=== PATIENT | female | born 1940 | race Caucasian/White ===

== ENCOUNTER 2017-02-14 05:18 | Emergency (ER) | payer MEDICARE, OTHER ==
[~2017-02-14] VITALS: Ht 162.6 cm; Wt 65.0 kg
[~2017-02-14 05:18] MED LIST: ACETAMIN325 MG PO; ADLT ASA LOW81 MG PO; ADVAIR HF2 IN; ALBUTEROL SUL0.083 % IN; ALBUTEROL0.083 % IN; ASA LOW DOSE81 MG OR; ASPIRIN81 MG PO; AVELOX400 MG PO; CARDIZEM CD 180 PO; CARDIZEM CD240 MG PO; CARDIZEM LA300 MG OR; CARTIA XT180 MG/24 PO; CARTIA XT240 MG/24 PO; CORDARONE/200 MG/TAB OR; COUMADIN1 MG PO; COUMADIN5 M1 IV; COUMADIN7.5 MG PO; COZAAR50 MG OR; CYTOTEC200 MCG PO; DILTIAZEM HCL240 M1 PO; DILTIAZEM120 MG PO; DILTIAZEM240 M1 OR; DONEPEZIL5 MG PO; DULCOLAX10 MG RE; ERYTHROMYCIN O3.5 GM OP; FLEET ENEMA RE; FLOVENT HFA220 MCG INH; HOME NEBULIZER; HYDROCO/APAP1 TA9 PO; HYDROCODONE/ACE1 TAB PO; IPRATROPIU0.5 MG/3 M NEB; KEFLEX500 MG PO; LANOXIN0.125 MG OR; LEVAQUIN500 MG PO; LOPRESSOR 550 MG/TAB PO; LOPRESSOR25 MG PO; LORTAB 5 PO; LOSARTAN POT50 MG PO; LOVASTATIN20 M1 PO; MEDDOSEPAK PO; MELATONIN3 MG PO; METOPROL TAR25 MG PO; METOPROL TAR50 MG PO; MEVACOR20 MG PO; MILK OF MAG30 ML/UDC PO; MUCINEX600 MG PO; NADOLOL20 MG PO; NEBULIZE1 IN; NEXIUM40 M1 PO; NYSTATIN100000 M4 PO; OMEPRAZOLE20 MG PO; PERCOCET 10/31 COMBO PO; PERCOCET 5/325M1 TAB PO; PREDNISONE10 MG PO; PREDNISONE20 MG PO; PREVACID30 M1 OR; PRILOSEC20 MG/CAP PO; PROAIR HFA IN; ROBITUSSIN AC10 ML PO; SERTRALINE100 MG PO; SERTRALINE50 MG PO; SPIRIVA IN; SYMBICORT1 AE1 IN; TRAMADOL HCL50 MG PO; TYLENOL ARTH650 M1 PO; VENTOLIN HFA IN; VITAMIN B-121000 MCG PO; WARFARIN1 MG; ZITHROMAX250 MG PO; ZITHROMAX500 MG PO; ZOFRAN ODT4 MG PO; ZOLOFT100 MG OR; ZOLOFT50 MG PO; ZPAK PO
[2017-02-14] MEDS ORDERED: VENTOLIN HF1 IN (05:34)
[2017-02-14 06:16] LABS: ALBUMIN 4.4 g/dL (3.2-5.0); ALKALINE PHOSPHATASE 106 u/l (38-126); ANION GAP 17 (6-22 (CALC)); BILIRUBIN, TOTAL 0.7 mg/dL (0.0-1.4); BUN 28 mg/dL (8-23); BUN/CREATININE RATIO 38 (12-20 (CALC)); CARBON DIOXIDE 24 mmol/l (22-30); CHLORIDE 109 mmol/l (95-108); CREATININE 0.7 mg/dL (0.5-1.0); GFR > 60 ML/MIN (>=60 (CALC)); GFR FOR AFR.AMER. > 60 ML/MIN (>=60 (CALC)); GLUCOSE 90 mg/dL (82-115); POTASSIUM 4.6 mmol/l (3.5-5.1); SGOT/AST 31 u/l (9-36); SGPT/ALT 20 u/l (11-66); SODIUM 145 mmol/l (137-146); TOTAL PROTEIN 8.5 g/dL (6.3-8.2)
[2017-02-14 06:52] LABS: HEMATOCRIT 43.6 % (37.0-47.0); HEMOGLOBIN 13.7 g/dl (12.0-16.0); IMMATURE GRANULOCYTES 0.3 % (0.0-1.0); MEAN CELL VOLUME 88.3 fL CALC (80.0-100.0); MEAN CORPUSCULAR HGB 27.7 pG CALC (26.0-32.0); MEAN CORPUSCULAR HGB CONC 31.4 g/L CALC (32.0-36.0); NEUT# 4.36 thou/uL (2.00-7.15); RED BLOOD COUNT 4.94 mill/uL (4.20-5.60); RED CELL DISTRI WIDTH 13.6 % (11.5-15.5)
[2017-02-14] MEDS ORDERED: LORTAB 10-325 M1 TAB PO (07:06)
[2017-02-14 07:12] LABS: INTERNATIONAL NORMALIZED RATIO 1.1 RATIO (0.7-1.3); PROTHROMBIN TIME 11.6 SECONDS (9.0-12.5)
[2017-02-14 07:16] VITALS: BP 186/97
== END 2017-02-14 07:22 | disposition home or self-care (01) ==
LOC: ED 05:18
PROVIDERS: Emergency Medicine
PROC: 2Y41X5Z Packing of Nasal Region using Packing Material (ICD-10-PCS; principal; 2017-02-14)
DX: R04.0 Epistaxis (principal); I10 Essential (primary) hypertension

== ENCOUNTER 2017-02-16 13:23 | Emergency (ER) | payer MEDICARE, OTHER ==
[~2017-02-16] VITALS: Ht 162.6 cm; Wt 55.0 kg
[~2017-02-16 13:23] MED LIST changes: +LORTAB 10-325 M1 TAB PO; +VENTOLIN HF1 IN
[2017-02-16 14:07] VITALS: BP 119/70
== END 2017-02-16 14:07 | disposition home or self-care (01) ==
LOC: ED 13:23
DX: Z48.00 Encounter for change or removal of nonsurgical wound dressing (principal); I10 Essential (primary) hypertension; J45.909 Unspecified asthma, uncomplicated; I25.10 Atherosclerotic heart disease of native coronary artery without angina pectoris; K21.9 Gastro-esophageal reflux disease without esophagitis; F32.9 Major depressive disorder, single episode, unspecified; I48.91 Unspecified atrial fibrillation; F03.90 Unspecified dementia, unspecified severity, without behavioral disturbance, psychotic disturbance, mood disturbance, and anxiety; J44.9 Chronic obstructive pulmonary disease, unspecified

== ENCOUNTER 2017-03-02 02:51 | Emergency (ER) | payer MEDICARE, OTHER ==
[~2017-03-02] VITALS: Ht 162.6 cm; Wt 63.6 kg
[~2017-03-02 02:51] MED LIST changes: -MEVACOR20 MG PO
[2017-03-02] MEDS ORDERED: ESOMEPRAZOLE MA40 MG PO (03:16)
[2017-03-02 03:37] LABS: ALBUMIN 3.9 g/dL (3.2-5.0); ALKALINE PHOSPHATASE 120 u/l (38-126); ANION GAP 13 (6-22 (CALC)); BILIRUBIN, TOTAL 0.6 mg/dL (0.0-1.4); BUN 13 mg/dL (8-23); BUN/CREATININE RATIO 17 (12-20 (CALC)); CALCIUM 8.9 mg/dL (8.4-10.2); CARBON DIOXIDE 30 mmol/l (22-30); CHLORIDE 106 mmol/l (95-108); CREATININE 0.8 mg/dL (0.5-1.0); GFR > 60 ML/MIN (>=60 (CALC)); GFR FOR AFR.AMER. > 60 ML/MIN (>=60 (CALC)); GLUCOSE 87 mg/dL (82-115); INTERNATIONAL NORMALIZED RATIO 1.1 RATIO (0.7-1.3); POTASSIUM 4.2 mmol/l (3.5-5.1); PROTHROMBIN TIME 11.7 SECONDS (9.0-12.5); SGOT/AST 27 u/l (9-36); SGPT/ALT 26 u/l (11-66); SODIUM 145 mmol/l (137-146); TOTAL PROTEIN 7.1 g/dL (6.3-8.2)
[2017-03-02 03:42] LABS: HEMATOCRIT 39.5 % (37.0-47.0); HEMOGLOBIN 12.4 g/dl (12.0-16.0); IMMATURE GRANULOCYTES 0.2 % (0.0-1.0); MEAN CORPUSCULAR HGB 27.3 pG CALC (26.0-32.0); MEAN CORPUSCULAR HGB CONC 31.4 g/L CALC (32.0-36.0); NEUT# 2.55 thou/uL (2.00-7.15); RED BLOOD COUNT 4.54 mill/uL (4.20-5.60); RED CELL DISTRI WIDTH 13.4 % (11.5-15.5)
[2017-03-02 06:00] VITALS: BP 168/76
== END 2017-03-02 06:00 | disposition home or self-care (01) ==
LOC: ED 02:51
PROVIDERS: Emergency Medicine
DX: R04.0 Epistaxis (principal)

== ENCOUNTER 2017-03-12 09:18 | Emergency (ER) | payer MEDICARE, OTHER ==
[~2017-03-12] VITALS: Ht 162.6 cm; Wt 90.0 kg
[~2017-03-12 09:18] MED LIST changes: +ESOMEPRAZOLE MA40 MG PO
[2017-03-12] MEDS ORDERED: VITAMIN B-121000 MCG PO (10:38)
[2017-03-12] MEDS ORDERED: NEXIUM40 M1 PO (10:41)
[2017-03-12] MEDS ORDERED: BENADRYL TOP (10:45)
[2017-03-12] MEDS ORDERED: TYLENOL325 MG PO (10:46)
[2017-03-12] MEDS ORDERED: OCEAN NASAL0.65 % (11:07)
[2017-03-12 11:08] VITALS: BP 108/58
== END 2017-03-12 11:15 ==
LOC: ED 09:18
PROC: 0W3Q7ZZ Control Bleeding in Respiratory Tract, Via Natural or Artificial Opening (ICD-10-PCS; principal; 2017-03-12)
DX: R04.0 Epistaxis (principal); I10 Essential (primary) hypertension; I25.10 Atherosclerotic heart disease of native coronary artery without angina pectoris; K21.9 Gastro-esophageal reflux disease without esophagitis; F32.9 Major depressive disorder, single episode, unspecified; I48.91 Unspecified atrial fibrillation; F03.90 Unspecified dementia, unspecified severity, without behavioral disturbance, psychotic disturbance, mood disturbance, and anxiety; J44.9 Chronic obstructive pulmonary disease, unspecified; J45.909 Unspecified asthma, uncomplicated

== ENCOUNTER 2018-03-25 20:04 | Emergency (ER) | payer MEDICARE, OTHER ==
[~2018-03-25] VITALS: Ht 162.6 cm; Wt 68.0 kg
[~2018-03-25 20:04] MED LIST changes: +BENADRYL TOP; +OCEAN NASAL0.65 %; +TYLENOL325 MG PO
[2018-03-25] MEDS ORDERED: AMLODIPINE5 MG PO (20:37)
[2018-03-25] MEDS ORDERED: FUROSEMIDE20 MG PO (20:38)
[2018-03-25] MEDS ORDERED: ESCITALOPRAM OX10 MG PO (20:38)
[2018-03-25] MEDS ORDERED: DYNACIN100 MG PO (20:39)
[2018-03-25 21:08] VITALS: BP 137/89
== END 2018-03-25 21:10 | disposition home or self-care (01) ==
LOC: ED 20:04
DX: L76.21 Postprocedural hemorrhage of skin and subcutaneous tissue following a dermatologic procedure (principal); Y83.8 Other surgical procedures as the cause of abnormal reaction of the patient, or of later complication, without mention of misadventure at the time of the procedure; C44.202 Unspecified malignant neoplasm of skin of right ear and external auricular canal; I10 Essential (primary) hypertension; K21.9 Gastro-esophageal reflux disease without esophagitis; I48.91 Unspecified atrial fibrillation; E78.5 Hyperlipidemia, unspecified; F32.9 Major depressive disorder, single episode, unspecified

== ENCOUNTER 2018-06-10 08:46 | Emergency (ER) | payer MEDICARE, OTHER ==
[~2018-06-10] VITALS: Ht 162.6 cm; Wt 80.0 kg
[~2018-06-10 08:46] MED LIST changes: +AMLODIPINE5 MG PO; +DYNACIN100 MG PO; +ESCITALOPRAM OX10 MG PO; +FUROSEMIDE20 MG PO
[2018-06-10 10:11] LABS: HEMATOCRIT 46.9 % (37.0-47.0); HEMOGLOBIN 14.6 g/dl (12.0-16.0); IMMATURE GRANULOCYTES 0.3 % (0.0-1.0); MEAN CELL VOLUME 89.2 fL CALC (80.0-100.0); MEAN CORPUSCULAR HGB 27.8 pG CALC (26.0-32.0); MEAN CORPUSCULAR HGB CONC 31.1 g/L CALC (32.0-36.0); NEUT# 5.02 thou/uL (2.00-7.15); RED BLOOD COUNT 5.26 mill/uL (4.20-5.60); RED CELL DISTRI WIDTH 14.6 % (11.5-15.5)
[2018-06-10 10:36] LABS: ALBUMIN 4.1 g/dL (3.2-5.0); ALKALINE PHOSPHATASE 115 u/l (38-126); ANION GAP 13 (6-22 (CALC)); BILIRUBIN, TOTAL 1.2 mg/dL (0.0-1.4); BUN 13 mg/dL (8-23); BUN/CREATININE RATIO 21 (12-20 (CALC)); CARBON DIOXIDE 28 mmol/l (22-30); CHLORIDE 107 mmol/l (95-108); CREATININE 0.6 mg/dL (0.5-1.0); GFR > 60 ML/MIN (>=60 (CALC)); GFR FOR AFR.AMER. > 60 ML/MIN (>=60 (CALC)); SGOT/AST 32 u/l (9-36); SGPT/ALT 19 u/l (11-66); SODIUM 143 mmol/l (137-146); TOTAL PROTEIN 7.6 g/dL (6.3-8.2)
[2018-06-10 10:45] LABS: POTASSIUM 5.1 mmol/l (3.5-5.1)
[2018-06-10] MEDS ORDERED: MELATONIN3 MG PO (10:49)
[2018-06-10 11:15] VITALS: BP 140/90
== END 2018-06-10 11:15 ==
LOC: ED 08:46
PROVIDERS: Emergency Medicine
DX: I10 Essential (primary) hypertension (principal); K21.9 Gastro-esophageal reflux disease without esophagitis; I48.91 Unspecified atrial fibrillation; E78.5 Hyperlipidemia, unspecified; F32.9 Major depressive disorder, single episode, unspecified

== ENCOUNTER 2018-12-04 09:35 | Emergency (ER) | payer MEDICARE, OTHER ==
[~2018-12-04] VITALS: Ht 162.6 cm; Wt 100.0 kg
[2018-12-04 10:44] LABS: HEMATOCRIT 43.1 % (37.0-47.0); HEMOGLOBIN 13.6 g/dl (12.0-16.0); IMMATURE GRANULOCYTES 0.4 % (0.0-5.0); MEAN CELL VOLUME 86.9 fL CALC (80.0-100.0); MEAN CORPUSCULAR HGB 27.4 pG CALC (26.0-32.0); MEAN CORPUSCULAR HGB CONC 31.6 g/L CALC (32.0-36.0); NEUT# 5.17 thou/uL (2.00-7.15); RED BLOOD COUNT 4.96 mill/uL (4.20-5.60); RED CELL DISTRI WIDTH 14.5 % (11.5-15.5)
[2018-12-04 10:50] LABS: ALBUMIN 3.9 g/dL (3.2-5.0); ALKALINE PHOSPHATASE 119 u/l (38-126); ANION GAP 15 (6-22 (CALC)); BILIRUBIN, TOTAL 0.7 mg/dL (0.0-1.4); BUN 13 mg/dL (8-23); BUN/CREATININE RATIO 20 (12-20 (CALC)); CARBON DIOXIDE 26 mmol/l (22-30); CHLORIDE 106 mmol/l (95-108); CREATININE 0.7 mg/dL (0.5-1.0); GFR > 60 ML/MIN (>=60 (CALC)); GFR FOR AFR.AMER. > 60 ML/MIN (>=60 (CALC)); POTASSIUM 4.5 mmol/l (3.5-5.1); SGOT/AST 25 u/l (9-36); SODIUM 142 mmol/l (137-146); TOTAL PROTEIN 7.1 g/dL (6.3-8.2)
[2018-12-04] MEDS ORDERED: MEDDOSEPAK PO (13:06)
[2018-12-04 13:16] VITALS: BP 127/65
== END 2018-12-04 13:16 ==
LOC: ED 09:35
PROVIDERS: Emergency Medicine
DX: J44.1 Chronic obstructive pulmonary disease with (acute) exacerbation (principal); R06.02 Shortness of breath; I10 Essential (primary) hypertension; I48.91 Unspecified atrial fibrillation; Z79.82 Long term (current) use of aspirin; R06.2 Wheezing
CPT/HCPCS: Q9967

== ENCOUNTER 2018-12-19 15:22 | Inpatient (IN) | payer MEDICARE, OTHER ==
[~2018-12-19] VITALS: Ht 162.6 cm; Wt 74.6 kg
--- NOTE | 2018-12-19 15:22 | NUR ---
PT HERE VIA EMS STRETCHER, ON EMS NEB AT THIS TIME.
--- NOTE | 2018-12-19 15:56 | NUR ---
PT RESTING QUIETLY ON STRETCHER, NEB TX BEING GIVEN. PT STATES HAS COPD, THIS HAS BEEN GOING ON FOR AWHILE BUT GOT WORSE TODAY.
[2018-12-19 16:03] LABS: HEMATOCRIT 40.9 % (37.0-47.0); HEMOGLOBIN 12.8 g/dl (12.0-16.0); IMMATURE GRANULOCYTES 0.5 % (0.0-5.0); MEAN CELL VOLUME 86.3 fL CALC (80.0-100.0); MEAN CORPUSCULAR HGB CONC 31.3 g/L CALC (32.0-36.0); NEUT# 4.62 thou/uL (2.00-7.15); RED BLOOD COUNT 4.74 mill/uL (4.20-5.60); RED CELL DISTRI WIDTH 14.7 % (11.5-15.5)
[2018-12-19 16:23] LABS: ALBUMIN 3.9 g/dL (3.2-5.0); ALKALINE PHOSPHATASE 115 u/l (38-126); ANION GAP 14 (6-22 (CALC)); BILIRUBIN, TOTAL 0.6 mg/dL (0.0-1.4); BUN 11 mg/dL (8-23); BUN/CREATININE RATIO 16 (12-20 (CALC)); CARBON DIOXIDE 27 mmol/l (22-30); CHLORIDE 104 mmol/l (95-108); CREATININE 0.7 mg/dL (0.5-1.0); GFR > 60 ML/MIN (>=60 (CALC)); GFR FOR AFR.AMER. > 60 ML/MIN (>=60 (CALC)); POTASSIUM 3.7 mmol/l (3.5-5.1); SGOT/AST 23 u/l (9-36); SODIUM 142 mmol/l (137-146); TOTAL PROTEIN 7.1 g/dL (6.3-8.2)
--- NOTE | 2018-12-19 18:04 | NUR ---
LLE CAST REMOVED WITH BIVALVE TECHNIQUE USING SAFETY CAST CUTTER.
--- NOTE | 2018-12-19 18:21 | NUR ---
PT HAS DECIDED THAT SHE WAS TO STAY NOW AFTER SHE GOT UP TO USE BEDSIDE COMMODE AND BECAME INCREASED SOB. SATS 97 ON 2 LITRE PER N/C
--- NOTE | 2018-12-19 19:03 | NUR ---
PT SLEEPING AT THIS TIME, WARM BLANKET GIVEN, LIGHTS TURNED OFF
--- NOTE | 2018-12-19 19:10 | NUR ---
UNABLE TO VERIFY MEDICATION RECONCILLIATION, PHARMACY CONSULT ORDERED
--- NOTE | 2018-12-19 19:20 | NUR ---
PT REFUSING BEDPAN, STATES SHE WILL GET UP TO BEDSIDE COMMODE EVEN THO SHE GETS VERY WINDED WHEN SHE GETS UP AND MOVES AROUND.
--- NOTE | 2018-12-19 20:48 | NUR ---
PT SLEEPING AT THIS TIME, HAS HAD APPROX 350CC OF URINE OUTPUT
[2018-12-19 21:20] VITALS: BP 190/110
--- NOTE | 2018-12-19 21:20 | NUR ---
PT TO ICU BED 4 VIA STRETCHER ACCOMPANIED BY ER STAFF. PT ABLE TO TRANSFER TO BED. PT EXTREMELY SOB UPON TRANSFER. PT PLACED ON MONITOR. PT IN AFIB WITH A RATE OF 130-140. BP 190/110. RESP ARE LABORED AT A RATE OF >40. ADMISSION ASSESSMENT COMPLETED AT THIS TIME. ORIENTED TO ROOM AND UNIT AND CALL LIGHT SYSTEM. CALL LIGHT IN REACH. WILL CONTINUE TO [facility].
--- NOTE | 2018-12-19 21:25 | NUR ---
PT TAKEN TO ICU FOR OVERFLOW, REPORT GIVEN TO JEANNIE, PT CONTINUES TO WHEEZE, BUT REMAINS ALERT.
--- NOTE | 2018-12-19 21:30 | NUR ---
DR LENNON UPDATED OF PT STATUS. NEW ORDERS RECEIVED TO CONVERT PT TO ICU STATUS WITH NEW MEDICXATION ORDERS.
[2018-12-19] MEDS ORDERED: DILTIAZEM90 M1 PO (21:44)
[2018-12-19 22:00] VITALS: BP 208/89
[2018-12-19 22:15] VITALS: BP 211/124
--- NOTE | 2018-12-19 22:20 | NUR ---
ASSISTED PT TO BSC. PT BECAME ETREMRELY SOB O2 SAT INTO 70S. RT INTO ROOM TO VERIFY. IV CARDIZEM GIVEN IVP PER JAN AND MD ORDERS. BP 211/124. PT VERY TACHYPNEIC AND PALE. INCREASED O2 TO 4L NC.
--- NOTE | 2018-12-19 22:22 | NUR ---
RT AT BEDSIDE TO COMPLETE ABG
[2018-12-19 22:30] VITALS: BP 207/88
--- NOTE | 2018-12-19 22:30 | NUR ---
DR LENNON NOTIFIED OF ABG RESULTS. PT PLACED ON BIPAP AND GROVES PLACED AT THIS TIME. CALL LIGHT IN REACH. WILL CONTINUE TO M[facility]ITOR
[2018-12-19 22:45] VITALS: BP 165/96
[2018-12-19 22:58] LABS: URINE BILIRUBIN - DIPSTICK NEGATIVE (NEGATIVE); URINE BLOOD DIPSTICK MODERATE (NEGATIVE); URINE COLOR YELLOW; URINE GLUCOSE - DIPSTICK NEGATIVE (NEGATIVE); URINE KETONE NEGATIVE (NEGATIVE); URINE LEUK ESTERASE NEGATIVE (NEGATIVE); URINE NITRITE - DIPSTICK NEGATIVE (Negative); URINE PH 5.5 (4.5-8.0); URINE PROTEIN - DIPSTICK >=300 mg/dL (NEG-TRACE); URINE SPECIFIC GRAVITY >=1.030
[2018-12-19 23:00] VITALS: BP 148/100
[2018-12-19 23:06] LABS: URINE AMORPH SEDIMENT MANY hpf (NONE-FEW); URINE BACTERIA FEW hpf; URINE SQUAMOUS EPITHELIAL CELL FEW EPI/hpf (0-FEW); URINE WBC 0-2 WBC/hpf (0-5)
--- NOTE | 2018-12-19 23:12 | NUR ---
PT NOW RESTING IN BED WITH EYES CLOSED. HR REMAINS AFIB RATE 80S-90S. BP NOW 148/100. RESP ARE EVEN AND UNLABORED ON BIPAP. RESP DOWN TO 28. CALL LIGHT IN REACH. WILL CONTINUE TO MONITOR
[2018-12-20] VITALS (23 sets, daily range): BP systolic 113–193; BP diastolic 65–104
--- NOTE | 2018-12-20 02:00 | NUR ---
PT RESTING IN BED WITH EYES CLOSED. RESP ARE EVEN AND UNLABORED ON BIPAP. NO DISTRESS NOTE. CALL LIGHT IN REACH. WILL CONTINUE TO MONITOR
--- NOTE | 2018-12-20 04:27 | NUR ---
PT RESTING IN BED WITH EYES CLOSED. RESP ARE EVEN AND UNLABORED. NO DISTRESS NOTED. CALL LIGHT IN REACH. WILL CONTINUE TO MONITOR.
--- NOTE | 2018-12-20 06:00 | NUR ---
FINGERPRINT CLASSIFIER AT BEDSIDE TO DRAW AM LABS
[2018-12-20 06:16] LABS: HEMATOCRIT 43.2 % (37.0-47.0); HEMOGLOBIN 13.6 g/dl (12.0-16.0); IMMATURE GRANULOCYTES 0.4 % (0.0-5.0); MEAN CELL VOLUME 86.4 fL CALC (80.0-100.0); MEAN CORPUSCULAR HGB 27.2 pG CALC (26.0-32.0); MEAN CORPUSCULAR HGB CONC 31.5 g/L CALC (32.0-36.0); NEUT# 5.15 thou/uL (2.00-7.15); RED CELL DISTRI WIDTH 14.9 % (11.5-15.5)
[2018-12-20 06:32] LABS: ALKALINE PHOSPHATASE 118 u/l (38-126); ANION GAP 16 (6-22 (CALC)); BILIRUBIN, TOTAL 0.8 mg/dL (0.0-1.4); BUN 16 mg/dL (8-23); BUN/CREATININE RATIO 26 (12-20 (CALC)); CARBON DIOXIDE 29 mmol/l (22-30); CHLORIDE 103 mmol/l (95-108); CREATININE 0.6 mg/dL (0.5-1.0); GFR > 60 ML/MIN (>=60 (CALC)); GFR FOR AFR.AMER. > 60 ML/MIN (>=60 (CALC)); POTASSIUM 4.3 mmol/l (3.5-5.1); SGOT/AST 25 u/l (9-36); SODIUM 144 mmol/l (137-146); TOTAL PROTEIN 6.9 g/dL (6.3-8.2)
--- NOTE | 2018-12-20 07:25 | NUR ---
awake in bed; offers no complaints; no apparent distress noted at this time; assessment completed; pt alert and oriented; denies pain; no n/v noted; pt denies sob at current; resp even and unlabored; rate 25; lungs clear upper anter, crackles right base; skin color pale; bipap intact; converted to 3L nc at this time; insulation cutter and former cough noted; hr irreg; strong pulses; no edema noted; afib on monitor; abd soft with bs present; no bm noted per auto service writer; lilly to gravity with cloudy dk yellow urine; cath strap intact; #22 flushed and patent to rac; no redness or edema noted at site; plan of care/ am meds explained; call light within reach; will continue to monitor
--- NOTE | 2018-12-20 07:30 | NUR ---
BIPAP PLACED STANDBY. PT PLACED ON 3L NC.
--- NOTE | 2018-12-20 08:08 | NUR ---
resting with eyes closed; ate 25% breakfast; pt noted with sob with minimal activity/exertion/speaking; o2 per nc; o2 sat 100%; afib 110s on monitor; lilly to gravity; call light within reach; will continue to monitor closely
--- NOTE | 2018-12-20 09:54 | NUR ---
assist to bsc; sob on exertion noted; afib 110-120 with activity; o2 per nc; mod formed br mo noted; pericare per pt; declined am care at this time; linens changed; will continue to monitor
--- NOTE | 2018-12-20 10:03 | NUR ---
awake in bed; no apparent distress noted; pt offers no complaints; resp slightly labored; o2 per nc; lilly to gravity; afib on monitor; call light within reach; will continue to monitor
--- NOTE | 2018-12-20 10:40 | NUR ---
Dr Figueroa present at bedside to assess pt and discuss plan of care
--- NOTE | 2018-12-20 11:58 | NUR ---
awake in bed; offers no complaints; son present at bedside; iv patent; o2 per nc; lilly to gravity; afib on monitor; lungs noted with wheezing throughout; call light within reach; will continue to monitor
--- NOTE | 2018-12-20 14:09 | NUR ---
pt resting on left side; no apparent distress noted; resp even and unlabored; o2 per nc; afib 90s on monitor; lilly to gravity; call light within reach; will continue to monitor
--- NOTE | 2018-12-20 15:58 | NUR ---
pt awake in bed; no apparent distress noted; resp slightly labored; o2 per nc; lilly to gravity; iv intact; no redness or edema noted at site; afib on monitor; pt deny needs; call light within reach; will continue to monitor
--- NOTE | 2018-12-20 17:34 | NUR ---
Dr Figueroa called per scenario writer; informed pt hr 130-140 and elevated bp; scenario writer explained next dose of cardizem due at 2200; no orders received;
--- NOTE | 2018-12-20 17:42 | NUR ---
pt with complaints of increased sob; labored resp/ tachypneic noted; afib 130s on monitor; o2 per nc; lilly to gravity; iv intact; o2 sat 94%; dinner tray held; bipap to be reapplied
--- NOTE | 2018-12-20 17:45 | NUR ---
rt at bedside; bipap reapplied; see rt flowsheet for settings
--- NOTE | 2018-12-20 18:13 | NUR ---
awake in bed; resp labored; bipap intact with 32% FiO2; lilly to gravity; iv intact; afib on monitor; pt offers no complaints; call light within reach
--- NOTE | 2018-12-20 19:00 | NUR ---
PT SITTING UP IN BED VISITING WITH FAMILY. PT IS ALERT AND ORIENTED X3. SHIFT ASSESSMENT COMPLETED AT THIS TIME. PT IS HYPERTENSIVE, AFIB 120-140S, APPEARS ANXIOUS. PT INSTRUCTED TO LEAVE BIPAP ON. DR LENNON NOTIFIED OF PT STATUS. NEW ORDERS RECEIVED. CALL LIGHT IN REACH. WILL CONTINUE TO MONITOR.
--- NOTE | 2018-12-20 20:33 | NUR ---
MEDICATED PT WITH EVENING MEDS AND XANAX FOR ANXIETY PER JAN. CALL LIGHT IN REACH WILL CONTINUE TO MOMITOR.
--- NOTE | 2018-12-20 22:00 | NUR ---
PT RESTING IN BED WITH EYES CLOSED. REMAINS ON BIPAP AT THIS TIME. CALL LIGHT IN REACH. WILL CONTINUE TO MONITOR.
--- NOTE | 2018-12-20 23:49 | NUR ---
PT RESTING IN BED WITH EYES CLOSED. RESP ARE EVEN AND UNLABORED. PT REMAINS ON BIPAP AT THIS TIME. CALL LIGHT IN REACH. WILL CONTINUE TO MONITOR.
[2018-12-21] VITALS (19 sets, daily range): BP systolic 106–194; BP diastolic 58–113
--- NOTE | 2018-12-21 01:15 | NUR ---
bp 194/113. notified dr manzanares. new orders received.
--- NOTE | 2018-12-21 02:19 | NUR ---
pt resting in bed on side. pt had removed bp cuff and heart monitor leads. reattached. when questioned pt why she began to yell at this database report writer. instructed pt to calm down. bp reassessed at 151/86. call light in reach. will continue to monitor
--- NOTE | 2018-12-21 03:48 | NUR ---
PT RESTING IN BED WITH EYES CLOSED. RESP ARE EVEN AND UNLABORED. NO DISTRESS NOTED. CALL LIGHT IN REACH. WILL CONTINUE TO MONITOR.
[2018-12-21 04:20] LABS: HEMATOCRIT 41.4 % (37.0-47.0); IMMATURE GRANULOCYTES 0.7 % (0.0-5.0); MEAN CELL VOLUME 86.8 fL CALC (80.0-100.0); MEAN CORPUSCULAR HGB 27.3 pG CALC (26.0-32.0); MEAN CORPUSCULAR HGB CONC 31.4 g/L CALC (32.0-36.0); NEUT# 3.72 thou/uL (2.00-7.15); RED BLOOD COUNT 4.77 mill/uL (4.20-5.60); RED CELL DISTRI WIDTH 14.9 % (11.5-15.5)
[2018-12-21 04:35] LABS: ALBUMIN 3.7 g/dL (3.2-5.0); ALKALINE PHOSPHATASE 107 u/l (38-126); AMYLASE 33 u/l (30-110); ANION GAP 14 (6-22 (CALC)); BILIRUBIN, TOTAL 0.5 mg/dL (0.0-1.4); BUN 23 mg/dL (8-23); BUN/CREATININE RATIO 36 (12-20 (CALC)); CARBON DIOXIDE 29 mmol/l (22-30); CHLORIDE 104 mmol/l (95-108); CREATININE 0.6 mg/dL (0.5-1.0); GFR > 60 ML/MIN (>=60 (CALC)); GFR FOR AFR.AMER. > 60 ML/MIN (>=60 (CALC)); LIPASE 61 u/l (23-300); SGOT/AST 26 u/l (9-36); SODIUM 142 mmol/l (137-146); TOTAL PROTEIN 6.4 g/dL (6.3-8.2)
--- NOTE | 2018-12-21 05:43 | NUR ---
MEDICATED PT WITH 0600 MEDS. PT REQUESTING TO HAVE BIPAP REMOVED. EXPLAINED TO PT THAT AT BREAKFAST TIME THE BIPAP WOULD BE REMOVED. ENCOURAGED PT TO TRY AND GET SOME MORE REST. PT VERBALIZED UNDERSTANDING. CALL LIGHT IN REACH. WILL CONTINUE TO MONITOR.
--- NOTE | 2018-12-21 08:09 | NUR ---
PT LAYING IN BED, HUDLED UNDER COVERS. PT GIVEN A WARM BLANKET. BREATHING EVEN/UNLABORED, LUNG SOUNDS WHEEZING. PULSES STRONG x4. CAP REFILL <3SEC. ABD SOFT/NONTENDER, ACTIVE BS. DARK YELLOW URINE DRAINING TO CATH GROVES BAG. PT A&0. RT REMOVED BIPAP, PT ON 2L NC @96%
--- NOTE | 2018-12-21 08:21 | NUR ---
DIETARY @BEDSIDE FOR PTS FOOD PREFERENCES.
--- NOTE | 2018-12-21 10:19 | NUR ---
DR DERAS @BEDSIDE, ASSESSING PT.
--- NOTE | 2018-12-21 10:26 | NUR ---
PT LAYING IN BED, WATCHING TV. OBSERVED PT FANNING HERSELF, TURNED AIR DOWN. PT REFUSED FAN ON. TYM TEMP 98.2
--- NOTE | 2018-12-21 10:38 | NUR ---
CALLED TO ROOM WITH C/O CANT BREATH. PT GIVEN 0.5MG XANAX ORDERED FOR ANXIETY. PT ENCOURAGED TO TAKE DEEP BREATHS & GUIDED TO SLOWER RESPIRATIONS. PT AGREED TO FAN AT THIS TIME. WILL CONTINUE TO MONITOR. CALLBELL W/IN REACH.
--- NOTE | 2018-12-21 11:40 | NUR ---
PT RESTING IN BED, NO S/S OF DISTRESS. BREATHING IS EVEN/UNLABORED. CALLBELL W/IN REACH. WILL CONTINUE TO MONITOR.
--- NOTE | 2018-12-21 11:46 | NUR ---
DR HODGES @BEDSIDE, ASSESSING PT.
--- NOTE | 2018-12-21 12:00 | NUR ---
GRACE, CASE MANAGEMENT, AT BEDSIDE WITH PT.
--- NOTE | 2018-12-21 13:15 | NUR ---
PT WOKEN UP TO GIVE ABX. STATES NO WORRIES, ILL JUST GO BACK TO SLEEP. BREATHING IS EVEN/UNLABORED. CALLBELL W/IN REACH.
--- NOTE | 2018-12-21 13:42 | NUR ---
U/S @BEDSIDE FOR ECHO.
--- NOTE | 2018-12-21 14:26 | NUR ---
PT EDUCATED ON 1400 MEDICATION. SHE IS NOW RESTING IN BED. NO S/S OF DISTRESS.
--- NOTE | 2018-12-21 15:42 | NUR ---
PT SITTING UP IN BED, WATCHING TV. PT STATES SHE IS STARTING TO GET STUFF UP WHEN SHE COUGHS.
--- NOTE | 2018-12-21 15:45 | NUR ---
VISITOR @BEDSIDE. PT APPEARS HAPPY & TALKATIVE.
--- NOTE | 2018-12-21 17:25 | NUR ---
PT SITTING UP ON SIDE OF BED EATING. PTS HAIR BRUSHED AND BRAIDED. CALLBELL WITHIN REACH.
--- NOTE | 2018-12-21 17:41 | NUR ---
DIETARY AT BEDSIDE TO DISCUSS PTS FOOD PREFERENCES.
--- NOTE | 2018-12-21 18:10 | NUR ---
PT MIN ASSISTED UP TO BSC FOR URINATION THEN BACK TO BED. PARTIAL LINEN CHANGE. CALLBELL W/IN REACH. FAN ON. PT ALTERNATES BETWEEN HOT & COLD. AFEBRILE ALL DAY.
--- NOTE | 2018-12-21 18:50 | NUR ---
REPORT FROM Janet RUCKER RN. ASSUMED PT. CARE.
--- NOTE | 2018-12-21 19:45 | NUR ---
PT. FOUND EASILY AROUSABLE TO LIGHT VERBAL STIMULI. AWAKE, ALERT, ORIENTED X 3. SKIN WARM AND DRY. AFEBRILE. RESPS EVEN AND UNLABORED. COARSE LUNG SOUNDS NOTED ON EXP PHASE THROUGHOUT. WHEEZY COUGH NOTED. PT. ENCOURAGED TO PROVIDE SPUTUM SPECIMEN AND SPECIMEN CUP PROVIDED. PT. DENIES PAIN OR NEED AT THIS TIME. UPDATED ON PLAN OF CARE. CALL LIGHT REMAINS WITHIN REACH. WILL CONTINUE TO MONITOR.
--- NOTE | 2018-12-21 21:37 | NUR ---
PT. MEDICATED PER PHYSICIAN ORDERS. REMAINS EASILY AROUSABLE TO LIGHT VERBAL STIMULI. PT. WITH SNORING RESPIRATIONS. RESPS REMAIN EVEN AND UNLABORED. REMAINS IN NO DISTRESS. WILL CONTINUE TO MONITOR.
--- NOTE | 2018-12-21 23:30 | NUR ---
PT. RESTING ON LT. SIDE IN NO DISTRESS. RESPS REMAIN EVEN, SHALLOW, UNLABORED. PROLONGED EXP PHASE. BP/HR STABLE. PT. REMAINS A-FIB HR IN THE 90-110'S. CALL LIGHT REMAINS WITHIN REACH. WILL CONTINUE TO ASSESS.
[2018-12-22] VITALS (11 sets, daily range): BP systolic 111–174; BP diastolic 60–99
--- NOTE | 2018-12-22 01:20 | NUR ---
PT. CONTINUES TO REST ON LT. SIDE IN NO DISTRESS. HR SLIGHTLY ELEVATED AT THIS TIME IN THE 100-120'S. BP SLIGHTLY ELEVATED, WILL CONTINUE TO ASSESS. SPO2 STABLE ON 2L NC AT 96%. CALL LIGHT REMAINS WITHIN REACH.
--- NOTE | 2018-12-22 03:30 | NUR ---
LAB AT BEDSIDE AT THIS TIME. PT. REMAINS EASILY AROUSABLE TO LIGHT VERBAL STIMULI. VSS. REMAINS A-FIB WITH RATE IN THE 90-110'S. CALL LIGHT REMAINS WITHIN REACH. WILL CONTINUE TO ASSESS.
[2018-12-22 03:55] LABS: HEMATOCRIT 42.9 % (37.0-47.0); HEMOGLOBIN 13.1 g/dl (12.0-16.0); IMMATURE GRANULOCYTES 0.8 % (0.0-5.0); MEAN CELL VOLUME 88.3 fL CALC (80.0-100.0); MEAN CORPUSCULAR HGB CONC 30.5 g/L CALC (32.0-36.0); NEUT# 8.35 thou/uL (2.00-7.15); RED BLOOD COUNT 4.86 mill/uL (4.20-5.60); RED CELL DISTRI WIDTH 14.9 % (11.5-15.5)
[2018-12-22 04:25] LABS: ALBUMIN 3.7 g/dL (3.2-5.0); ALKALINE PHOSPHATASE 101 u/l (38-126); ANION GAP 15 (6-22 (CALC)); BILIRUBIN, TOTAL 0.3 mg/dL (0.0-1.4); BUN 32 mg/dL (8-23); BUN/CREATININE RATIO 44 (12-20 (CALC)); CARBON DIOXIDE 29 mmol/l (22-30); CHLORIDE 104 mmol/l (95-108); CREATININE 0.7 mg/dL (0.5-1.0); GFR > 60 ML/MIN (>=60 (CALC)); GFR FOR AFR.AMER. > 60 ML/MIN (>=60 (CALC)); MAGNESIUM 2.3 mg/dL (1.6-2.3); POTASSIUM 4.3 mmol/l (3.5-5.1); SGOT/AST 26 u/l (9-36); SODIUM 144 mmol/l (137-146); TOTAL PROTEIN 6.4 g/dL (6.3-8.2)
--- NOTE | 2018-12-22 05:34 | NUR ---
PT. MEDICATED PER PHYSICIAN ORDERS. RADIOLOGY AT BEDSIDE AT THIS TIME FOR PORTABLE CHEST X-RAY. PT. TOLERATED WELL. WILL CONTINUE TO ASSESS. CALL LIGHT REMAINS WITHIN REACH.
--- NOTE | 2018-12-22 05:41 | NUR ---
RT AT BEDSIDE TO PERFORM CHEST PHYSIOTHERAPY.
--- NOTE | 2018-12-22 05:45 | NUR ---
CPT DONE TO POSTERIOR LUNG UPTON. TOLERATED WELL. LOOSE, NON-PRODUCTIVE COUGH.
--- NOTE | 2018-12-22 06:50 | NUR ---
REPORT RECVD FROM SAMMIE AVILA AT START OF SHIFT.
--- NOTE | 2018-12-22 07:33 | NUR ---
PT LAYING IN BED W/HOB FLAT, APPEARS ASLEEP. WILL HOLD BREAKFAST UNTIL PT AWAKENS.
--- NOTE | 2018-12-22 09:36 | NUR ---
PT SITTING UP ON SIDE OF BED, EATING BREAKFAST. BREAKFAST WAS HEATED UP. PT MEDICATED WITH MORNING MEDS + ANXIETY + MILK OF MAG. PT STATES SHE SLEPT WELL AND REPOSITIONED HERSELF TO THE SIDE OF THE BED AND USED BED CONTROLS.
--- NOTE | 2018-12-22 11:27 | NUR ---
PT SLEEPING IN SEMI-FOWLERS POSITION. NO S/S OF DISTRESS AT THIS TIME. CALLBELL W/IN REACH. WILL CONTINUE TO MONITOR.
--- NOTE | 2018-12-22 12:14 | NUR ---
DR LENNON & RAINER OBRIEN @BEDSIDE ASSESSING PT, DISCUSSING TEST RESULTS & POC. MAGDA GROVES. TRANSFER PT TO MSU. & CAMILLE DISCUSSING LATEST CHEST XR.
--- NOTE | 2018-12-22 12:25 | NUR ---
SHIMON GROVES DC'D WITHOUT INCIDENT. TIP INTACT, 9ML FLUIDS DRAWN FROM BUBBLE. PERIAREA CLEANED. PT INSTRUCTED TO USE CALLBELL WHEN SHE NEEDS TO URINATE. PT REFUSED LUNCH AT THIS TIME. TRAY ON BEDSIDE TABLE. WILL HEAT UP WHEN SHE IS READY. PT REFUSED BATH EARLY THIS AM AND NOW.
--- NOTE | 2018-12-22 13:57 | NUR ---
CALLED TO ROOM FOR RIGHT ARM PAIN. NOTICED SWELLING TO IV SITE. IV AZYTHROMICIN STOPPED IMMEDIATELY. IV DC'D, TIP INTACT, PRESSURE DRESSING & ICE APPLIED TO ENTIRE AREA.
--- NOTE | 2018-12-22 14:08 | NUR ---
RT @BEDSIDE FOR BREATHING TREATMENT.
--- NOTE | 2018-12-22 14:24 | NUR ---
NEW IV ESTABLISHED IN . AZITHROMYCIN RESTARTED. PT FEELING PAIN RELEIF IN RIGHT ARM. TRANSFER PENDING ROOM ASSIGNMENT ON MSU.
--- NOTE | 2018-12-22 16:41 | NUR ---
PT SITTING UP ON SIDE OF BED, EATING LUNCH TRAY THAT WAS HEATED UP. PT AWARE DINNER WILL BE SERVED SOON. PT REQUESTED CRANBERRY JUICE INSTEAD OF TEA.
--- NOTE | 2018-12-22 18:28 | NUR ---
ASSISTED PT BACK TO BED FROM CHAIR. PT AWARE/AGREES TO TRANSFER TO MSU ROOM 282 AT SHIFT CHANGE.
--- NOTE | 2018-12-22 18:52 | NUR ---
REPORT FROM Janet RUCKER RN. ASSUMED PT. CARE
--- NOTE | 2018-12-22 19:05 | NUR ---
REPORT TO Evelin FRASER RN.
--- NOTE | 2018-12-22 19:30 | NUR ---
PT. TAKEN OVER TO MED/SURG AT THIS TIME.
--- NOTE | 2018-12-22 19:32 | NUR ---
PT ARRIVED TO FLOOR ACCOMPANIED BY ICU NURSE. PT APPEARS TO BE STABLE AT THIS TIME. AIDE IN W/PT AT THIS TIME. PT BEING ORIENTED TO ROOM, CALL SYSTEM, BED AND LIGHTS
[2018-12-23] VITALS (7 sets, daily range): BP systolic 141–174; BP diastolic 62–97
--- NOTE | 2018-12-23 02:10 | NUR ---
PT IS SLEEPING. NO S/O DISTRESS NOTED. CALL LIGHT AT BEDSIDE.
--- NOTE | 2018-12-23 04:04 | NUR ---
PT UP TO RESTROOM 200CC OF DARK YELLOW CLEAR URINE. PT BLADDER SCANNED FOR RESIDUAL DUE TO NOT URINATING THROUGHOUT THE NIGHT MORE THAN THIS 200CC. RESIDUAL READING 0. ROOM WARMED FOR PT/COMPLAINT OF COLD. DENIES ANY OTHER NEEDS, NO S/O DISTRESS. CALL LIGHT AT BEDSIDE.
--- NOTE | 2018-12-23 05:31 | NUR ---
PT MEDICATED ORDERS PROVIDE. RESPIRATORY IN W/PT AT THIS TIME. PT DENIES ANY OTHER NEEDS, CALL LIGHT AT SIDE.
--- NOTE | 2018-12-23 07:15 | NUR ---
PT REPORT RECIEVED FROM SAMMIE LOPEZ. PT SLEEPING. NO S/S OF DISTRESS. CALL LIGHT IN REACH. WILL CONTINUE TO MONITOR
[2018-12-23 07:16] LABS: HEMATOCRIT 41.2 % (37.0-47.0); HEMOGLOBIN 12.6 g/dl (12.0-16.0); MEAN CELL VOLUME 88.4 fL CALC (80.0-100.0); MEAN CORPUSCULAR HGB CONC 30.6 g/L CALC (32.0-36.0); RED BLOOD COUNT 4.66 mill/uL (4.20-5.60); RED CELL DISTRI WIDTH 14.9 % (11.5-15.5)
[2018-12-23 07:51] LABS: ANION GAP 13 (6-22 (CALC)); BUN 39 mg/dL (8-23); BUN/CREATININE RATIO 60 (12-20 (CALC)); CARBON DIOXIDE 30 mmol/l (22-30); CHLORIDE 103 mmol/l (95-108); CREATININE 0.7 mg/dL (0.5-1.0); GFR > 60 ML/MIN (>=60 (CALC)); GFR FOR AFR.AMER. > 60 ML/MIN (>=60 (CALC)); POTASSIUM 4.8 mmol/l (3.5-5.1); SODIUM 141 mmol/l (137-146)
--- NOTE | 2018-12-23 08:10 | NUR ---
PT A/O X3. SPEECH IS SLIGHTLY GARBLED. PT HAS SOME FACIAL WEAKNESS TO LT SIDE. PT STATES SHE HAS HAD THIS FOR AWHILE. PRODUCTIVE COUGH NOTED. RESP EVEN AND UNLABORED. LUNG SOUNDS COARSE. O2 @2L ON PT. BOWEL SOUNDS ACTIVE X4. STRONG RADIAL AND PEDAL PULSES. #22 LH SL. FLUSHED AND PATENT. SITE HEALTHY. PT HAS A TRACE OF EDEMA TO BLE. ENCOURAGED ELEVATION WHEN OOB. SKIN INTACT. PT DENIES ANY PAIN OR NEEDS. POC DISCUSSED. SAFETY PRECAUTIONS IN PLACE. CALL LIGHT IN REACH. WILL CONTINUE TO MONITOR.
--- NOTE | 2018-12-23 12:10 | NUR ---
PT SITTING IN BED EATING LUNCH. TELE IN PLACE. NO C/O PAIN OR NEEDS. CALL LIGHT IN REACH. WILL CONTINUE TO MONITOR.
[2018-12-23] MEDS ORDERED: PREDNISONE10 MG PO (12:11)
[2018-12-23] MEDS ORDERED: IPRATROPIU0.5 MG/3 M NEB (12:11)
[2018-12-23] MEDS ORDERED: DOXYCYCL HYC100 MG PO (12:11)
--- NOTE | 2018-12-23 15:52 | NUR ---
PT RESTING IN BED. NO C/O PAIN OR NEEDS. CALL LIGHT IN REACH. WILL CONTINUE TO MONITOR.
--- NOTE | 2018-12-23 20:37 | NUR ---
NEW IV 22 RFA PLACED, PT TOLERATED WELL.
--- NOTE | 2018-12-23 21:15 | NUR ---
PT MEDICATED ORDERS PROVIDE NO S/O DISTRESS, COUGHING THICK WHITE SPUTUM PRODUCTIVE. LIGHTS AND TV ARE OFF, PT ATTEMPTING TO GO TO SLEEP FOR THE NIGHT.
--- NOTE | 2018-12-24 00:09 | NUR ---
PT MEDICATED FOR ELEVATED BP. LUNG SOUNDS ARE WHEEZING, PT DENIES SOB AND IS ATTEMPTING TO RETURN TO SLEEP AT THIS TIME.
[2018-12-24 04:00] VITALS: BP 169/84
--- NOTE | 2018-12-24 04:51 | NUR ---
PT MEDICATED FOR ELEVATED BP. PT WAS SLEEPING SOUNDLY I ENTERED THE ROOM, AWOKE TO MY VOICE. NO S/O DISTRESS. WILL CONTINUE TO MONITOR. PT RETURNING BACK TO SLEEP, TV AND LIGHTS OFF.
[2018-12-24 09:10] VITALS: BP 134/68
--- NOTE | 2018-12-24 09:10 | NUR ---
PT OOB RESTING IN RECLINER;VS OBTAINED AND ASSESSMENT COMPLETED;PT DENIES ANY CURRENT PAIN JUST STATES "I FEEL CRAPPY TODAY", PAIN SCALE AND REPORTING EDUCATED;RESPIRATIONS SHALLOW ON 02 @ 2L VIA NC, PRODUCTIVE COUGH NOTED;ABDOMEN DISTENDED/SOFT ON PALPATION AND ACTIVE IN ALL 4 QUADRANTS;WEAK PEDAL PULSES;SKIN INTACT;#22G TO RIGHT FOREARM FLUSHED AND PATENT,SITE APPEARS HEALTHY;TELE MONITORING IN PLACE;PT DENIES ANY ADDITIONAL NEEDS AND IS ENCOURAGED TO CALL FOR ASSISTANCE IF NEEDED;FALL PRECAUTIONS IN PLACE WITH CALL LIGHT IN REACH;WILL CONTINUE TO MONITOR
[2018-12-24 11:39] VITALS: BP 144/78
--- NOTE | 2018-12-24 11:40 | NUR ---
PT OOB RESTING IN RECLINER WITH FAMILY AT BEDSIDE;RESPIRATIONS EVEN AND UNLABORED,SHALLOW ON 02 @ 2L VIA NC;PT DENIES ANY CURRENT PAIN OR NEEDS;TELE MONITORING IN PLACE;PT UPDATED ON POC INCLUDING D/C PLAN AND VERBALIZES UNDERSTANDING;ENCOURAGED PT TO CALL FOR ASSISTANCE IF NEEDED;FALL PRECAUTIONS IN PLACE WITH CALL LIGHT IN REACH;WILL CONTINUE TO MONITOR
--- NOTE | 2018-12-24 14:18 | NUR ---
ALL DISCHARGE INSTRUCTIONS PROVIDED AT THIS TIME;PT GIVEN PRESCRIPTIONS AND EDUCATED ON USE;ALL QUESTIONS ANSWERED AND PT RE-ASSURED;PT DENIES ANY ADDITIONAL NEEDS AT THIS TIME;IV SITE REMOVED WITH CATHETER INTACT;WHEELCHAIR TO BE PROVIDED FOR DISCHARGE;PT TO BE TRANSFERRED TO THE [facility] BY BROTHER.
--- NOTE | 2018-12-24 14:32 | NUR ---
Discharge instructions given. Patient verbalizes understanding of same. Discharged in stable condition via Wheelchair to [facility] with family. All belongings sent with pt. Pt transferred back to the [facility] in stable condition accompanied by son via wheelchair.
== END 2018-12-24 14:33 | DRG 190 ==
LOC: ED 15:22 → ED-I 15:56 → ED 15:56 → ED-I 18:40 → ED 19:12 → ICU 19:13 → MS2 12-22 19:30
PROVIDERS: Emergency Medicine; Internal Medicine Nephrology; ADMIT Internal Medicine; ATTEND Internal Medicine
PROC: 5A09357 Assistance with Respiratory Ventilation, Less than 24 Consecutive Hours, Continuous Positive Airway Pressure (ICD-10-PCS; principal; 2018-12-19)
PROC: 0T9B70Z Drainage of Bladder with Drainage Device, Via Natural or Artificial Opening (ICD-10-PCS; 2018-12-19)
DX: J44.1 Chronic obstructive pulmonary disease with (acute) exacerbation (principal); J96.22 Acute and chronic respiratory failure with hypercapnia; J96.21 Acute and chronic respiratory failure with hypoxia; I50.22 Chronic systolic (congestive) heart failure; I11.0 Hypertensive heart disease with heart failure; I48.2 Chronic atrial fibrillation; G62.9 Polyneuropathy, unspecified; M19.90 Unspecified osteoarthritis, unspecified site; E78.5 Hyperlipidemia, unspecified; F41.8 Other specified anxiety disorders; K21.9 Gastro-esophageal reflux disease without esophagitis; R80.9 Proteinuria, unspecified; E53.8 Deficiency of other specified B group vitamins; G47.33 Obstructive sleep apnea (adult) (pediatric); I27.20 Pulmonary hypertension, unspecified; I08.1 Rheumatic disorders of both mitral and tricuspid valves; I71.4 Abdominal aortic aneurysm, without rupture; Z79.82 Long term (current) use of aspirin; Z91.81 History of falling; Z96.643 Presence of artificial hip joint, bilateral; Z96.652 Presence of left artificial knee joint
CPT/HCPCS: J1650

== ENCOUNTER 2019-03-13 16:36 | Emergency (ER) | payer MEDICARE, OTHER ==
[~2019-03-13] VITALS: Ht 162.6 cm; Wt 86.0 kg
[~2019-03-13 16:36] MED LIST changes: +DILTIAZEM90 M1 PO; +DOXYCYCL HYC100 MG PO
[2019-03-13 17:05] LABS: HEMATOCRIT 40.4 % (37.0-47.0); HEMOGLOBIN 12.5 g/dl (12.0-16.0); IMMATURE GRANULOCYTES 0.4 % (0.0-5.0); MEAN CELL VOLUME 88.4 fL CALC (80.0-100.0); MEAN CORPUSCULAR HGB 27.4 pG CALC (26.0-32.0); MEAN CORPUSCULAR HGB CONC 30.9 g/L CALC (32.0-36.0); NEUT# 4.63 thou/uL (2.00-7.15); RED BLOOD COUNT 4.57 mill/uL (4.20-5.60); RED CELL DISTRI WIDTH 15.7 % (11.5-15.5)
[2019-03-13 17:36] LABS: ALBUMIN 3.8 g/dL (3.2-5.0); ALKALINE PHOSPHATASE 81 u/l (38-126); ANION GAP 12 (6-22 (CALC)); BILIRUBIN, TOTAL 0.6 mg/dL (0.0-1.4); BUN 15 mg/dL (8-23); BUN/CREATININE RATIO 19 (12-20 (CALC)); CARBON DIOXIDE 30 mmol/l (22-30); CHLORIDE 105 mmol/l (95-108); CREATININE 0.8 mg/dL (0.5-1.0); GFR > 60 ML/MIN (>=60 (CALC)); GFR FOR AFR.AMER. > 60 ML/MIN (>=60 (CALC)); SGOT/AST 32 u/l (9-36); SODIUM 142 mmol/l (137-146); TOTAL PROTEIN 6.4 g/dL (6.3-8.2)
[2019-03-13 17:48] LABS: MYOGLOBIN 27 ng/mL (0 - 62)
[2019-03-13 18:03] LABS: URINE BILIRUBIN - DIPSTICK NEGATIVE (NEGATIVE); URINE BLOOD DIPSTICK NEGATIVE (NEGATIVE); URINE COLOR YELLOW; URINE GLUCOSE - DIPSTICK NEGATIVE (NEGATIVE); URINE KETONE NEGATIVE (NEGATIVE); URINE LEUK ESTERASE NEGATIVE (NEGATIVE); URINE NITRITE - DIPSTICK NEGATIVE (Negative); URINE PH 5.5 (4.5-8.0); URINE PROTEIN - DIPSTICK NEGATIVE (NEG-TRACE); URINE SPECIFIC GRAVITY <=1.005; URINE UROBILINOGEN - DIPSTICK 0.2 E.U./dL (0.2)
[2019-03-13] MEDS ORDERED: DILTIAZEM180 M1 PO (18:22)
[2019-03-13 18:41] VITALS: BP 160/85
== END 2019-03-13 19:15 ==
LOC: ED 16:36
PROVIDERS: Family Medicine
DX: R42 Dizziness and giddiness (principal); I10 Essential (primary) hypertension; J44.9 Chronic obstructive pulmonary disease, unspecified; I48.91 Unspecified atrial fibrillation; R94.31 Abnormal electrocardiogram [ECG] [EKG]

== ENCOUNTER 2019-04-07 18:01 | Inpatient (IN) | payer MEDICARE, OTHER ==
[~2019-04-07] VITALS: Ht 162.6 cm; Wt 73.5 kg
[~2019-04-07 18:01] MED LIST changes: +DILTIAZEM180 M1 PO
[2019-04-07] MEDS ORDERED: LASIX 20 MG TAB20 MG PO (18:31)
[2019-04-07] MEDS ORDERED: ANORO ELLIPTA 61 AER IN (18:33)
[2019-04-07] MEDS ORDERED: KEFLEX500 MG PO (18:37)
[2019-04-07 18:46] LABS: HEMATOCRIT 39.1 % (37.0-47.0); HEMOGLOBIN 12.3 g/dl (12.0-16.0); IMMATURE GRANULOCYTES 0.8 % (0.0-5.0); MEAN CELL VOLUME 85.6 fL CALC (80.0-100.0); MEAN CORPUSCULAR HGB 26.9 pG CALC (26.0-32.0); MEAN CORPUSCULAR HGB CONC 31.5 g/L CALC (32.0-36.0); NEUT# 10.67 thou/uL (2.00-7.15); RED BLOOD COUNT 4.57 mill/uL (4.20-5.60); RED CELL DISTRI WIDTH 14.6 % (11.5-15.5)
[2019-04-07 19:03] LABS: ALBUMIN 3.7 g/dL (3.2-5.0); ANION GAP 12 (6-22 (CALC)); BILIRUBIN, TOTAL 0.7 mg/dL (0.0-1.4); BUN 13 mg/dL (8-23); BUN/CREATININE RATIO 23 (12-20 (CALC)); CARBON DIOXIDE 30 mmol/l (22-30); CHLORIDE 103 mmol/l (95-108); CREATININE 0.6 mg/dL (0.5-1.0); GFR > 60 ML/MIN (>=60 (CALC)); GFR FOR AFR.AMER. > 60 ML/MIN (>=60 (CALC)); LIPASE 116 u/l (23-300); POTASSIUM 3.6 mmol/l (3.5-5.1); SGOT/AST 40 u/l (9-36); SODIUM 141 mmol/l (137-146); TOTAL PROTEIN 7.1 g/dL (6.3-8.2)
[2019-04-07 19:05] LABS: ALKALINE PHOSPHATASE 126 u/l (38-126)
[2019-04-07 20:45] VITALS: BP 168/92
[2019-04-07 21:25] LABS: URINE BILIRUBIN - DIPSTICK SMALL (NEGATIVE); URINE BLOOD DIPSTICK NEGATIVE (NEGATIVE); URINE COLOR YELLOW; URINE GLUCOSE - DIPSTICK NEGATIVE (NEGATIVE); URINE KETONE TRACE mg/dL (NEGATIVE); URINE LEUK ESTERASE NEGATIVE (NEGATIVE); URINE NITRITE - DIPSTICK NEGATIVE (Negative); URINE PH 5.5 (4.5-8.0); URINE PROTEIN - DIPSTICK 100 mg/dL (NEG-TRACE); URINE SPECIFIC GRAVITY 1.025
[2019-04-07 22:21] LABS: URINE SQUAMOUS EPITHELIAL CELL FEW EPI/hpf (0-FEW)
[2019-04-08 04:30] VITALS: BP 150/80
[2019-04-08 09:30] VITALS: BP 151/81
[2019-04-08 16:04] VITALS: BP 154/79
[2019-04-08 20:10] VITALS: BP 165/67
[2019-04-09] VITALS (7 sets, daily range): BP systolic 133–174; BP diastolic 45–86
[2019-04-09 06:08] LABS: HEMATOCRIT 36.7 % (37.0-47.0); HEMOGLOBIN 11.4 g/dl (12.0-16.0); IMMATURE GRANULOCYTES 1.9 % (0.0-5.0); MEAN CELL VOLUME 86.2 fL CALC (80.0-100.0); MEAN CORPUSCULAR HGB 26.8 pG CALC (26.0-32.0); MEAN CORPUSCULAR HGB CONC 31.1 g/L CALC (32.0-36.0); NEUT# 13.6 thou/uL (2.00-7.15); RED BLOOD COUNT 4.26 mill/uL (4.20-5.60); RED CELL DISTRI WIDTH 14.6 % (11.5-15.5)
[2019-04-09 06:30] LABS: ALBUMIN 3.4 g/dL (3.2-5.0); ALKALINE PHOSPHATASE 114 u/l (38-126); AMYLASE 47 u/l (30-110); ANION GAP 12 (6-22 (CALC)); BUN 23 mg/dL (8-23); BUN/CREATININE RATIO 45 (12-20 (CALC)); CARBON DIOXIDE 29 mmol/l (22-30); CHLORIDE 105 mmol/l (95-108); CREATININE 0.5 mg/dL (0.5-1.0); GFR > 60 ML/MIN (>=60 (CALC)); GFR FOR AFR.AMER. > 60 ML/MIN (>=60 (CALC)); LIPASE 37 u/l (23-300); SGOT/AST 29 u/l (9-36); SODIUM 142 mmol/l (137-146); TOTAL PROTEIN 6.2 g/dL (6.3-8.2)
[2019-04-09 06:31] LABS: BILIRUBIN, TOTAL 0.4 mg/dL (0.0-1.4)
[2019-04-10] VITALS (7 sets, daily range): BP systolic 132–170; BP diastolic 8–94
[2019-04-10 05:58] LABS: HEMATOCRIT 36.2 % (37.0-47.0); HEMOGLOBIN 11.2 g/dl (12.0-16.0); MEAN CELL VOLUME 87.2 fL CALC (80.0-100.0); MEAN CORPUSCULAR HGB CONC 30.9 g/L CALC (32.0-36.0); NEUT# 12.18 thou/uL (2.00-7.15); RED BLOOD COUNT 4.15 mill/uL (4.20-5.60); RED CELL DISTRI WIDTH 15.2 % (11.5-15.5)
[2019-04-10 06:21] LABS: ALBUMIN 3.3 g/dL (3.2-5.0); ALKALINE PHOSPHATASE 107 u/l (38-126); ANION GAP 11 (6-22 (CALC)); BILIRUBIN, TOTAL 0.4 mg/dL (0.0-1.4); BUN 29 mg/dL (8-23); BUN/CREATININE RATIO 43 (12-20 (CALC)); CARBON DIOXIDE 29 mmol/l (22-30); CHLORIDE 105 mmol/l (95-108); CREATININE 0.7 mg/dL (0.5-1.0); GFR > 60 ML/MIN (>=60 (CALC)); GFR FOR AFR.AMER. > 60 ML/MIN (>=60 (CALC)); MAGNESIUM 2.1 mg/dL (1.6-2.3); SGOT/AST 40 u/l (9-36); SODIUM 141 mmol/l (137-146)
[2019-04-11] VITALS (7 sets, daily range): BP systolic 138–169; BP diastolic 65–100
[2019-04-12] VITALS (7 sets, daily range): BP systolic 141–161; BP diastolic 66–87
[2019-04-12 05:04] LABS: HEMOGLOBIN 12.2 g/dl (12.0-16.0); MEAN CELL VOLUME 86.9 fL CALC (80.0-100.0); MEAN CORPUSCULAR HGB 27.2 pG CALC (26.0-32.0); MEAN CORPUSCULAR HGB CONC 31.3 g/L CALC (32.0-36.0); NEUT# 10.78 thou/uL (2.00-7.15); RED BLOOD COUNT 4.49 mill/uL (4.20-5.60); RED CELL DISTRI WIDTH 14.6 % (11.5-15.5)
[2019-04-12 05:28] LABS: ALBUMIN 3.5 g/dL (3.2-5.0); ALKALINE PHOSPHATASE 92 u/l (38-126); ANION GAP 13 (6-22 (CALC)); BUN 27 mg/dL (8-23); BUN/CREATININE RATIO 40 (12-20 (CALC)); CARBON DIOXIDE 29 mmol/l (22-30); CHLORIDE 102 mmol/l (95-108); CREATININE 0.7 mg/dL (0.5-1.0); GFR > 60 ML/MIN (>=60 (CALC)); GFR FOR AFR.AMER. > 60 ML/MIN (>=60 (CALC)); MAGNESIUM 2.1 mg/dL (1.6-2.3); POTASSIUM 3.9 mmol/l (3.5-5.1); SGOT/AST 29 u/l (9-36); SODIUM 140 mmol/l (137-146); TOTAL PROTEIN 6.1 g/dL (6.3-8.2)
[2019-04-12 05:39] LABS: BILIRUBIN, TOTAL 0.6 mg/dL (0.0-1.4)
[2019-04-13 04:02] VITALS: BP 146/83
[2019-04-13 11:00] VITALS: BP 171/94
[2019-04-13 15:00] VITALS: BP 127/69
[2019-04-13 19:13] VITALS: BP 160/90
[2019-04-13 23:58] VITALS: BP 155/91
[2019-04-14 04:46] VITALS: BP 162/78
[2019-04-14 08:00] VITALS: BP 131/78
[2019-04-14] MEDS ORDERED: LEVAQUIN500 MG PO (12:07)
[2019-04-14 13:13] VITALS: BP 166/84
== END 2019-04-14 14:45 | DRG 190 ==
LOC: ED 18:01 → ED-I 19:25 → ED 20:04 → MS2 20:05
PROVIDERS: Family Medicine; Internal Medicine Nephrology; ADMIT Internal Medicine; ATTEND Internal Medicine
DX: J44.1 Chronic obstructive pulmonary disease with (acute) exacerbation (principal); J18.9 Pneumonia, unspecified organism; J44.0 Chronic obstructive pulmonary disease with (acute) lower respiratory infection; I10 Essential (primary) hypertension; I48.0 Paroxysmal atrial fibrillation; E78.5 Hyperlipidemia, unspecified; G62.9 Polyneuropathy, unspecified; M19.90 Unspecified osteoarthritis, unspecified site; F41.8 Other specified anxiety disorders; K21.9 Gastro-esophageal reflux disease without esophagitis; Z91.81 History of falling; Z86.73 Personal history of transient ischemic attack (TIA), and cerebral infarction without residual deficits
CPT/HCPCS: J0692; J3370

== ENCOUNTER 2019-05-02 09:48 | Emergency (ER) | payer MEDICARE, OTHER ==
[~2019-05-02] VITALS: Ht 162.6 cm; Wt 70.0 kg
[~2019-05-02 09:48] MED LIST changes: +ANORO ELLIPTA 61 AER IN; +LASIX 20 MG TAB20 MG PO
[2019-05-02] MEDS ORDERED: METHIMAZOLE PO (10:39)
[2019-05-02 10:45] LABS: HEMATOCRIT 45.5 % (37.0-47.0); HEMOGLOBIN 13.5 g/dl (12.0-16.0); IMMATURE GRANULOCYTES 0.6 % (0.0-5.0); MEAN CORPUSCULAR HGB CONC 29.7 g/L CALC (32.0-36.0); NEUT# 2.06 thou/uL (2.00-7.15); RED CELL DISTRI WIDTH 16.2 % (11.5-15.5)
[2019-05-02 10:57] LABS: ANION GAP 13 (6-22 (CALC)); BUN 14 mg/dL (8-23); BUN/CREATININE RATIO 22 (12-20 (CALC)); CARBON DIOXIDE 27 mmol/l (22-30); CHLORIDE 107 mmol/l (95-108); CREATININE 0.6 mg/dL (0.5-1.0); GFR > 60 ML/MIN (>=60 (CALC)); GFR FOR AFR.AMER. > 60 ML/MIN (>=60 (CALC)); POTASSIUM 4.4 mmol/l (3.5-5.1); SODIUM 142 mmol/l (137-146)
[2019-05-02 11:44] VITALS: BP 160/96
[2019-05-03] MEDS ORDERED: LASIX 20 MG TAB20 MG PO (22:38)
[2019-05-03] MEDS ORDERED: PREDNISONE50 MG PO (23:40)
[2019-05-03] MEDS ORDERED: DOXYCYCL HYC100 MG PO (23:40)
== END 2019-05-02 11:46 | disposition home or self-care (01) ==
LOC: ED 09:48
PROVIDERS: Family Medicine
DX: R07.9 Chest pain, unspecified (principal); R94.31 Abnormal electrocardiogram [ECG] [EKG]; Z91.19 Patient's noncompliance with other medical treatment and regimen

== ENCOUNTER 2019-05-03 22:03 | Emergency (ER) | payer MEDICARE, OTHER ==
[~2019-05-03] VITALS: Ht 162.6 cm; Wt 68.1 kg
[~2019-05-03 22:03] MED LIST changes: +METHIMAZOLE PO
[2019-05-03] MEDS ORDERED: LASIX 20 MG TAB20 MG PO (22:38)
[2019-05-03 22:45] LABS: HEMATOCRIT 42.5 % (37.0-47.0); HEMOGLOBIN 13.1 g/dl (12.0-16.0); IMMATURE GRANULOCYTES 0.3 % (0.0-5.0); MEAN CELL VOLUME 87.3 fL CALC (80.0-100.0); MEAN CORPUSCULAR HGB 26.9 pG CALC (26.0-32.0); MEAN CORPUSCULAR HGB CONC 30.8 g/L CALC (32.0-36.0); NEUT# 2.36 thou/uL (2.00-7.15); RED BLOOD COUNT 4.87 mill/uL (4.20-5.60)
[2019-05-03 23:09] LABS: ALBUMIN 4.1 g/dL (3.2-5.0); ALKALINE PHOSPHATASE 110 u/l (38-126); ANION GAP 12 (6-22 (CALC)); BILIRUBIN, TOTAL 0.7 mg/dL (0.0-1.4); BUN 16 mg/dL (8-23); BUN/CREATININE RATIO 24 (12-20 (CALC)); CARBON DIOXIDE 31 mmol/l (22-30); CHLORIDE 103 mmol/l (95-108); CREATININE 0.7 mg/dL (0.5-1.0); GFR > 60 ML/MIN (>=60 (CALC)); GFR FOR AFR.AMER. > 60 ML/MIN (>=60 (CALC)); POTASSIUM 4.5 mmol/l (3.5-5.1); SGOT/AST 26 u/l (9-36); SODIUM 141 mmol/l (137-146)
[2019-05-03] MEDS ORDERED: PREDNISONE50 MG PO (23:40)
[2019-05-03] MEDS ORDERED: DOXYCYCL HYC100 MG PO (23:40)
[2019-05-04] VITALS: BP 133/70
--- NOTE | 2019-05-05 08:20 | NUR ---
PRELIMINARY BLOOD CULTURE RESULTS CALLED TO IN ED. THE PATIENT WAS BEING SEEN FOR COPD, BLOOD CULTURE IS GROWING GRAM (+) COCCI IN 1/2 SETS SUSPECTED CONTAMINATE. WILL FOLLOW FOR FINAL C+S NO NEW ORDERS AT THIS TIME.
== END 2019-05-04 00:02 ==
LOC: ED 22:03
PROVIDERS: Family Medicine
DX: J44.1 Chronic obstructive pulmonary disease with (acute) exacerbation (principal); I10 Essential (primary) hypertension; I48.91 Unspecified atrial fibrillation; Z86.73 Personal history of transient ischemic attack (TIA), and cerebral infarction without residual deficits

== ENCOUNTER 2019-10-15 13:20 | Emergency (ER) | payer MEDICARE, OTHER ==
[~2019-10-15] VITALS: Ht 162.6 cm; Wt 69.0 kg
[~2019-10-15 13:20] MED LIST changes: +PREDNISONE50 MG PO
[2019-10-15 13:48] LABS: HEMATOCRIT 43.3 % (37.0-47.0); HEMOGLOBIN 13.5 g/dl (12.0-16.0); IMMATURE GRANULOCYTES 0.5 % (0.0-5.0); MEAN CELL VOLUME 87.1 fL CALC (80.0-100.0); MEAN CORPUSCULAR HGB 27.2 pG CALC (26.0-32.0); MEAN CORPUSCULAR HGB CONC 31.2 g/L CALC (32.0-36.0); NEUT# 9.2 thou/uL (2.00-7.15); RED BLOOD COUNT 4.97 mill/uL (4.20-5.60)
[2019-10-15 14:26] LABS: ANION GAP 13 (6-22 (CALC)); BUN 20 mg/dL (8-23); BUN/CREATININE RATIO 23 (12-20 (CALC)); CARBON DIOXIDE 30 mmol/l (22-30); CHLORIDE 101 mmol/l (95-108); CREATININE 0.9 mg/dL (0.5-1.0); GFR 60 ML/MIN (>=60 (CALC)); GFR FOR AFR.AMER. > 60 ML/MIN (>=60 (CALC)); POTASSIUM 4.1 mmol/l (3.5-5.1); SODIUM 139 mmol/l (137-146)
[2019-10-15 15:42] VITALS: BP 156/69
== END 2019-10-15 15:39 | disposition left against medical advice (07) ==
LOC: ED 13:20
PROVIDERS: Family Medicine
DX: R07.9 Chest pain, unspecified (principal); J44.1 Chronic obstructive pulmonary disease with (acute) exacerbation; Z53.29 Procedure and treatment not carried out because of patient's decision for other reasons
CPT/HCPCS: J2060

== ENCOUNTER 2019-10-16 07:43 | Inpatient (IN) | payer MEDICARE, OTHER ==
[2019-10-16] VITALS (52 sets, daily range): BP systolic 86–202; BP diastolic 46–95
[~2019-10-16] VITALS: Ht 162.6 cm; Wt 68.1 kg
[2019-10-16 08:19] LABS: HEMATOCRIT 43.7 % (37.0-47.0); HEMOGLOBIN 13.5 g/dl (12.0-16.0); MEAN CELL VOLUME 87.6 fL CALC (80.0-100.0); MEAN CORPUSCULAR HGB 27.1 pG CALC (26.0-32.0); MEAN CORPUSCULAR HGB CONC 30.9 g/L CALC (32.0-36.0); NEUT# 11.66 thou/uL (2.00-7.15); RED BLOOD COUNT 4.99 mill/uL (4.20-5.60); RED CELL DISTRI WIDTH 14.9 % (11.5-15.5)
[2019-10-16 08:41] LABS: ALBUMIN 4.3 g/dL (3.2-5.0); ALKALINE PHOSPHATASE 104 u/l (38-126); ANION GAP 17 (6-22 (CALC)); BILIRUBIN, TOTAL 0.7 mg/dL (0.0-1.4); BUN 26 mg/dL (8-23); BUN/CREATININE RATIO 40 (12-20 (CALC)); CARBON DIOXIDE 25 mmol/l (22-30); CHLORIDE 103 mmol/l (95-108); CREATININE 0.6 mg/dL (0.5-1.0); GFR > 60 ML/MIN (>=60 (CALC)); GFR FOR AFR.AMER. > 60 ML/MIN (>=60 (CALC)); POTASSIUM 4.4 mmol/l (3.5-5.1); SGOT/AST 23 u/l (9-36); SODIUM 140 mmol/l (137-146); TOTAL PROTEIN 7.2 g/dL (6.3-8.2)
[2019-10-16 16:15] LABS: URINE BILIRUBIN - DIPSTICK NEGATIVE (NEGATIVE); URINE BLOOD DIPSTICK NEGATIVE (NEGATIVE); URINE COLOR YELLOW; URINE GLUCOSE - DIPSTICK NEGATIVE (NEGATIVE); URINE KETONE NEGATIVE (NEGATIVE); URINE LEUK ESTERASE NEGATIVE (NEGATIVE); URINE NITRITE - DIPSTICK NEGATIVE (Negative); URINE PROTEIN - DIPSTICK 100 mg/dL (NEG-TRACE); URINE SPECIFIC GRAVITY >=1.030; URINE UROBILINOGEN - DIPSTICK 0.2 E.U./dL (0.2)
[2019-10-16 16:26] LABS: URINE AMORPH SEDIMENT MODERATE hpf (NONE-FEW); URINE SQUAMOUS EPITHELIAL CELL FEW EPI/hpf (0-FEW); URINE URIC ACID CRYSTALS MANY lpf
[2019-10-17] VITALS (37 sets, daily range): BP systolic 113–168; BP diastolic 38–86
[2019-10-17 08:01] LABS: IMMATURE GRANULOCYTES 0.9 % (0.0-5.0); MEAN CELL VOLUME 88.8 fL CALC (80.0-100.0); MEAN CORPUSCULAR HGB CONC 30.5 g/L CALC (32.0-36.0); NEUT# 10.48 thou/uL (2.00-7.15); RED BLOOD COUNT 3.92 mill/uL (4.20-5.60); RED CELL DISTRI WIDTH 15.4 % (11.5-15.5)
[2019-10-17 08:05] LABS: HEMOGLOBIN 10.6 g/dl (12.0-16.0)
[2019-10-17 08:07] LABS: HEMATOCRIT 34.8 % (37.0-47.0)
[2019-10-17 08:25] LABS: ALKALINE PHOSPHATASE 69 u/l (38-126); ANION GAP 12 (6-22 (CALC)); BILIRUBIN, TOTAL 0.5 mg/dL (0.0-1.4); BUN 27 mg/dL (8-23); BUN/CREATININE RATIO 32 (12-20 (CALC)); CARBON DIOXIDE 24 mmol/l (22-30); CHLORIDE 109 mmol/l (95-108); CREATININE 0.8 mg/dL (0.5-1.0); GFR > 60 ML/MIN (>=60 (CALC)); GFR FOR AFR.AMER. > 60 ML/MIN (>=60 (CALC)); POTASSIUM 4.1 mmol/l (3.5-5.1); SGOT/AST 19 u/l (9-36); SODIUM 141 mmol/l (137-146)
[2019-10-17 08:30] LABS: ALBUMIN 3.1 g/dL (3.2-5.0); TOTAL PROTEIN 5.4 g/dL (6.3-8.2)
[2019-10-18] VITALS (31 sets, daily range): BP systolic 127–189; BP diastolic 60–107
[2019-10-18 05:37] LABS: MEAN CELL VOLUME 87.5 fL CALC (80.0-100.0); MEAN CORPUSCULAR HGB 27.5 pG CALC (26.0-32.0); MEAN CORPUSCULAR HGB CONC 31.4 g/L CALC (32.0-36.0); RED CELL DISTRI WIDTH 15.9 % (11.5-15.5)
[2019-10-18 06:02] LABS: ANION GAP 13 (6-22 (CALC)); BUN 27 mg/dL (8-23); BUN/CREATININE RATIO 35 (12-20 (CALC)); CHLORIDE 114 mmol/l (95-108); CREATININE 0.8 mg/dL (0.5-1.0); GFR > 60 ML/MIN (>=60 (CALC)); GFR FOR AFR.AMER. > 60 ML/MIN (>=60 (CALC)); POTASSIUM 3.5 mmol/l (3.5-5.1); SODIUM 142 mmol/l (137-146)
[2019-10-18 06:03] LABS: CARBON DIOXIDE 19 mmol/l (22-30)
[2019-10-19] VITALS (29 sets, daily range): BP systolic 124–181; BP diastolic 64–95
[2019-10-20] VITALS (19 sets, daily range): BP systolic 96–194; BP diastolic 72–98
[2019-10-20 05:49] LABS: ANION GAP 8 (6-22 (CALC)); BUN 38 mg/dL (8-23); BUN/CREATININE RATIO 50 (12-20 (CALC)); CARBON DIOXIDE 37 mmol/l (22-30); CHLORIDE 103 mmol/l (95-108); CREATININE 0.8 mg/dL (0.5-1.0); GFR > 60 ML/MIN (>=60 (CALC)); GFR FOR AFR.AMER. > 60 ML/MIN (>=60 (CALC)); POTASSIUM 3.7 mmol/l (3.5-5.1); SODIUM 144 mmol/l (137-146)
[2019-10-21] VITALS (11 sets, daily range): BP systolic 108–180; BP diastolic 57–122
[2019-10-21 05:43] LABS: HEMOGLOBIN 12.6 g/dl (12.0-16.0); IMMATURE GRANULOCYTES 1.1 % (0.0-5.0); MEAN CELL VOLUME 88.4 fL CALC (80.0-100.0); MEAN CORPUSCULAR HGB CONC 30.6 g/L CALC (32.0-36.0); NEUT# 8.63 thou/uL (2.00-7.15); RED BLOOD COUNT 4.66 mill/uL (4.20-5.60); RED CELL DISTRI WIDTH 14.8 % (11.5-15.5)
[2019-10-21 05:44] LABS: HEMATOCRIT 41.2 % (37.0-47.0)
[2019-10-21 06:00] LABS: ALBUMIN 3.4 g/dL (3.2-5.0); ALKALINE PHOSPHATASE 60 u/l (38-126); BUN 43 mg/dL (8-23); BUN/CREATININE RATIO 61 (12-20 (CALC)); CHLORIDE 98 mmol/l (95-108); CREATININE 0.7 mg/dL (0.5-1.0); GFR > 60 ML/MIN (>=60 (CALC)); GFR FOR AFR.AMER. > 60 ML/MIN (>=60 (CALC)); POTASSIUM 3.8 mmol/l (3.5-5.1); SGOT/AST 24 u/l (9-36); SODIUM 142 mmol/l (137-146)
[2019-10-21 06:06] LABS: ANION GAP 9 (6-22 (CALC)); CARBON DIOXIDE 39 mmol/l (22-30)
[2019-10-21 06:09] LABS: BILIRUBIN, TOTAL 0.9 mg/dL (0.0-1.4)
[2019-10-22] VITALS (14 sets, daily range): BP systolic 109–170; BP diastolic 61–109
[2019-10-22 05:45] LABS: HEMOGLOBIN 13.1 g/dl (12.0-16.0); IMMATURE GRANULOCYTES 1.3 % (0.0-5.0); MEAN CELL VOLUME 88.5 fL CALC (80.0-100.0); MEAN CORPUSCULAR HGB CONC 30.5 g/L CALC (32.0-36.0); NEUT# 10.09 thou/uL (2.00-7.15); RED BLOOD COUNT 4.86 mill/uL (4.20-5.60); RED CELL DISTRI WIDTH 14.6 % (11.5-15.5)
[2019-10-22 05:47] LABS: BUN 41 mg/dL (8-23); BUN/CREATININE RATIO 57 (12-20 (CALC)); CHLORIDE 96 mmol/l (95-108); CREATININE 0.7 mg/dL (0.5-1.0); GFR > 60 ML/MIN (>=60 (CALC)); GFR FOR AFR.AMER. > 60 ML/MIN (>=60 (CALC)); POTASSIUM 3.7 mmol/l (3.5-5.1); SODIUM 142 mmol/l (137-146)
[2019-10-22 05:53] LABS: ANION GAP 10 (6-22 (CALC)); CARBON DIOXIDE 40 mmol/l (22-30)
[2019-10-22] MEDS ORDERED: AUGMENTIN250 MG PO (16:54)
[2019-10-22] MEDS ORDERED: PREDNISONE10 MG PO (16:59)
[2019-10-23 00:15] VITALS: BP 165/96
[2019-10-23 01:15] VITALS: BP 169/69
[2019-10-23 02:00] VITALS: BP 155/79
[2019-10-23 04:08] VITALS: BP 152/87
[2019-10-23 05:20] LABS: HEMATOCRIT 41.3 % (37.0-47.0); HEMOGLOBIN 12.7 g/dl (12.0-16.0); MEAN CELL VOLUME 88.1 fL CALC (80.0-100.0); MEAN CORPUSCULAR HGB 27.1 pG CALC (26.0-32.0); MEAN CORPUSCULAR HGB CONC 30.8 g/L CALC (32.0-36.0); NEUT# 10.79 thou/uL (2.00-7.15); RED BLOOD COUNT 4.69 mill/uL (4.20-5.60); RED CELL DISTRI WIDTH 14.4 % (11.5-15.5)
[2019-10-23 05:56] LABS: BUN 39 mg/dL (8-23); BUN/CREATININE RATIO 51 (12-20 (CALC)); CHLORIDE 93 mmol/l (95-108); CREATININE 0.8 mg/dL (0.5-1.0); GFR > 60 ML/MIN (>=60 (CALC)); GFR FOR AFR.AMER. > 60 ML/MIN (>=60 (CALC)); POTASSIUM 3.7 mmol/l (3.5-5.1); SODIUM 139 mmol/l (137-146)
[2019-10-23 05:57] LABS: ANION GAP 10 (6-22 (CALC))
[2019-10-23 05:58] LABS: CARBON DIOXIDE 40 mmol/l (22-30)
[2019-10-23 08:00] VITALS: BP 112/80
[2019-10-23 08:29] VITALS: BP 133/63
== END 2019-10-23 10:40 | DRG 208 ==
LOC: ED 07:43 → ED-I 09:24 → ED 09:48 → ICU 09:49
PROVIDERS: Family Medicine; Nurse Practitioner Family; ADMIT Internal Medicine; ATTEND Internal Medicine
PROC: 5A09357 Assistance with Respiratory Ventilation, Less than 24 Consecutive Hours, Continuous Positive Airway Pressure (ICD-10-PCS; principal; 2019-10-16)
PROC: 5A1945Z Respiratory Ventilation, 24-96 Consecutive Hours (ICD-10-PCS; 2019-10-16)
PROC: 0BH17EZ Insertion of Endotracheal Airway into Trachea, Via Natural or Artificial Opening (ICD-10-PCS; 2019-10-16)
PROC: 06HY33Z Insertion of Infusion Device into Lower Vein, Percutaneous Approach (ICD-10-PCS; 2019-10-16)
DX: J44.1 Chronic obstructive pulmonary disease with (acute) exacerbation (principal); J96.21 Acute and chronic respiratory failure with hypoxia; J96.22 Acute and chronic respiratory failure with hypercapnia; J18.9 Pneumonia, unspecified organism; I48.20 Chronic atrial fibrillation, unspecified; J44.0 Chronic obstructive pulmonary disease with (acute) lower respiratory infection; I10 Essential (primary) hypertension; F41.9 Anxiety disorder, unspecified; K21.9 Gastro-esophageal reflux disease without esophagitis; E78.5 Hyperlipidemia, unspecified; F32.9 Major depressive disorder, single episode, unspecified; Z79.82 Long term (current) use of aspirin; Z99.81 Dependence on supplemental oxygen; Z86.73 Personal history of transient ischemic attack (TIA), and cerebral infarction without residual deficits; R07.9 Chest pain, unspecified; Z53.29 Procedure and treatment not carried out because of patient's decision for other reasons
CPT/HCPCS: J1650; J2060; S0164

== ENCOUNTER 2019-10-23 14:23 | Inpatient (IN) | payer MEDICARE, OTHER ==
[2019-10-23] VITALS (7 sets, daily range): BP systolic 145–171; BP diastolic 70–88
[~2019-10-23] VITALS: Ht 162.6 cm; Wt 71.0 kg
[~2019-10-23 14:23] MED LIST changes: +AUGMENTIN250 MG PO
--- NOTE | 2019-10-23 14:23 | NUR ---
PT TO ROOM VIA EMS PT WAS DISCHARGED FROM ICU APX 3 HOURS PRIOR TO EMS BEING CALLED. PT HAS AUDIBLE RALES, WITH MODERATE SOB, PT IS JOKING WITH STAFF. DENIES ANY CP, N/V OR WEAKNESS.
[2019-10-23 15:41] LABS: HEMATOCRIT 40.4 % (37.0-47.0); HEMOGLOBIN 12.7 g/dl (12.0-16.0); IMMATURE GRANULOCYTES 1.3 % (0.0-5.0); MEAN CELL VOLUME 87.8 fL CALC (80.0-100.0); MEAN CORPUSCULAR HGB 27.6 pG CALC (26.0-32.0); MEAN CORPUSCULAR HGB CONC 31.4 g/L CALC (32.0-36.0); NEUT# 11.48 thou/uL (2.00-7.15); RED BLOOD COUNT 4.6 mill/uL (4.20-5.60); RED CELL DISTRI WIDTH 14.4 % (11.5-15.5)
[2019-10-23 16:02] LABS: ALBUMIN 3.7 g/dL (3.2-5.0); ALKALINE PHOSPHATASE 57 u/l (38-126); ANION GAP 13 (6-22 (CALC)); BILIRUBIN, TOTAL 0.9 mg/dL (0.0-1.4); BUN 48 mg/dL (8-23); BUN/CREATININE RATIO 69 (12-20 (CALC)); CARBON DIOXIDE 35 mmol/l (22-30); CHLORIDE 94 mmol/l (95-108); CREATININE 0.7 mg/dL (0.5-1.0); GFR > 60 ML/MIN (>=60 (CALC)); GFR FOR AFR.AMER. > 60 ML/MIN (>=60 (CALC)); POTASSIUM 3.3 mmol/l (3.5-5.1); SGOT/AST 28 u/l (9-36); SODIUM 138 mmol/l (137-146); TOTAL PROTEIN 6.3 g/dL (6.3-8.2)
[2019-10-23 16:03] LABS: INTERNATIONAL NORMALIZED RATIO 1.1 RATIO (0.7-1.3); PROTHROMBIN TIME 11.5 SECONDS (9.0-12.5)
--- NOTE | 2019-10-23 16:15 | NUR ---
16F GROVES PLACED USING STERILE TECHNIQUE PER ORDER DR. HOWELL, IMMEDIATE RETURN OF CLEAR YELLOW URINE, CATH SECURITY DEVICE PLACED ON L UPPER THIGH.
--- NOTE | 2019-10-23 17:15 | NUR ---
PT YELLING ON STRETCHER, WANTING TO GO BACK TO THE [facility].
--- NOTE | 2019-10-23 18:15 | NUR ---
PT CRYING ON STRETCHER, WANTING TO RETURN TO [facility], CRYING CEASED WHEN PT IS REORIENTED.
--- NOTE | 2019-10-23 18:47 | NUR ---
ICU CALLED FOR REPORT, [facility] ACCEPTED PT
--- NOTE | 2019-10-23 19:41 | NUR ---
CONTINUE TO WAIT FOR ATTENDING TO PLACE ADMISSION ORDERS.
--- NOTE | 2019-10-23 20:35 | NUR ---
TX TO ICU4 VIA STRETCHER.
--- NOTE | 2019-10-23 20:39 | NUR ---
PT ARRIVED TO UNIT VIA STRETCHER WITH ER STAFF; HEAD BACK WITH EYES CLOSED AND CRYING. ASSISTED TO BED WITH 3 PERSON ASSIST; PT IS ALERT AND FOLLOW COMMANDS; ORIENTED X 2 TO PERSON AND TIME. NEEDED REORIENTATION TO PLACE. DENIES PAIN. RESPIRATIONS SLIGHTLY LABORED WITH EXERTION; OXYGEN IN PLACE 2L VIA NC. LUNGS ARE COURSE THROUGHOUT. ASSESSMENT COMPLETED AT THIS TIME. PUPILS ARE UNEQUAL AND NOT ROUND, BUT ARE BRISK TO LIGHT; MIXER CRANE OPERATOR ARE EQUAL. SHE CAN HOLD HER ARMS; HER LEGS DRIFT, BUT DO NOT HIT BED. HEART RATE IS IRREGULAR; ARIB RVR ON TELEMTRY WITH HEART RATE IN THE 110'S. CARDIZEM DRIP INFUSING UP ON ARRIVAL AT 12.5 MG/HR; IV SITE BRUISED, BUT PATENT AND HEALHTY. BLOOD PRESSURE ELEVATED. GROVES CATHETER DRAINING CLEAR YELLOW URINE IN LARGE AMOUNTS; EMPTIED 1250ML ON ARRIVAL; TUBING SECURED TO LEFT UPPER THIGH. PT ORIENTED TO ROOM AND CALL LIGHT SYSTEM. PLAN OF CARE REVIEWED. ENCOURAGED TO VERBALIZE CONCERNS. STATES UNDERSTANDING. SAFETY MEASURES IN PLACE INCLUDING BED ALARM. CALL LIGHT WITHIN REACH.
--- NOTE | 2019-10-23 21:15 | NUR ---
METOPROLOL GIVEN FOR ELEVATED BP AND RT AT BEDSIDE FOR BREATHING TREATMENT. WEI OWENS APPLIED.
--- NOTE | 2019-10-23 21:42 | NUR ---
RT AT BEDSIDE TO COMPLETE BREATHING TREATMENT. ASSISTED WITH ORAL HYGEINE AND DENTURES BRUSHED AND PLACED IN DENTURE CUP. PT NOW MUCH MORE RELAXED; SMILING AND TALKING WITH STAFF; VERY APPRECIATIVE. RESTING IN SEMI FOWLERS; POSITIONED WITH PILLOWS ONTO LEFT SIDE. CALL LIGHT WITHIN REACH.
--- NOTE | 2019-10-23 22:42 | NUR ---
CARDIZEM DRIP TITRATED DOWN TO 10 MG/HR; HR IN THE 90'S AND BLOOD PRESSURE IMPROVED 145/72. 93% SP02 ON 2L O2 AND RESPIRATIONS ARE EVEN AND UNLABORED. PT SLIGHTLY RESTLESS IN BED AND TALKING TO HERSELF. NO SIGNS OF DISTRESS. ASSISTED WITH REPOSITIONING.
--- NOTE | 2019-10-23 23:01 | NUR ---
CARDIZEM DRIP TITRATED DOWN TO 5 MG/HR; AFIB WITH HEART RATE IN THE 70S-90S.
--- NOTE | 2019-10-23 23:29 | NUR ---
URINE SPECIMEN COLLECTED AND SENT TO LAB.
[2019-10-24] VITALS (25 sets, daily range): BP systolic 114–202; BP diastolic 60–113
[2019-10-24 00:41] LABS: URINE BILIRUBIN - DIPSTICK NEGATIVE (NEGATIVE); URINE BLOOD DIPSTICK MODERATE (NEGATIVE); URINE COLOR YELLOW; URINE GLUCOSE - DIPSTICK NEGATIVE (NEGATIVE); URINE KETONE NEGATIVE (NEGATIVE); URINE LEUK ESTERASE NEGATIVE (NEGATIVE); URINE NITRITE - DIPSTICK NEGATIVE (Negative); URINE PROTEIN - DIPSTICK TRACE mg/dL (NEG-TRACE); URINE SPECIFIC GRAVITY 1.025; URINE UROBILINOGEN - DIPSTICK 0.2 E.U./dL (0.2)
[2019-10-24 00:42] LABS: URINE BACTERIA FEW hpf; URINE EPITHELIAL CELLS FEW EPI/hpf (0-FEW); URINE HYALINE CAST RARE lpf (NONE-RARE)
--- NOTE | 2019-10-24 00:53 | NUR ---
PT RESTING IN BED QUIETLY AND FIDGETING WITH HANDS, WIRES, ETC. PT NOTICED TOUCHING SALINE LOCKED IV SITE TO RAC; IV FOUND DISLODGED WITH SOME BLOOD AT SITE; AREA CLEANSED. AT THIS TIME IV SITE TO LAC NOTED TO BE INFILTRATED WITH SWELLING AND REDNESS; MEDICATION PAUSED AND IV SITE REMOVED; ICE PACK APPLIED TO AREA. NEW IV PLACED TO RIGHT UPPER ARM; CARDIZEM AND BACK UP FLUIDS NOW INFUSING WITHOUT DIFFICULTY AND NEW SITE APPEARS HEATLHY.
--- NOTE | 2019-10-24 04:02 | NUR ---
PT ASLEEP WITH NO SIGNS OF DISTRESS. RESPIRATIONS EVEN AND UNLABORED ON OXYGEN. CARDIZEM DRIP CONTINUES TO INFUSE AT 5 MG/HR; IV SITE TO RIGHT UPPER CHEST APPEARS HEALTHY. GROVES DRAINING CLEAR YELLOW URINE IN ADEQUATE AMOUNTS. SAFETY MEASURES IN PLACE. CALL LIGHT WITHIN REACH.
--- NOTE | 2019-10-24 05:24 | NUR ---
RT AT BEDSIDE FOR BREATHING TREATMENT.
--- NOTE | 2019-10-24 06:11 | NUR ---
PT TURNED HERSELF ONTO HER LEFT SIDE AND WAS SHAKING THE SIDE RAIL OF THE BED SHOUTING, "GIVE IT BACK TO ME!" PT STATES THAT THE SIDE RAIL WAS HER PURSE. EASILY REORIENTED AND CALMED. HEART RATE AT THIS TIME IN THE 130'S. CARDIZEM DRIP TITRATED TO 10 MG/HR.
--- NOTE | 2019-10-24 07:00 | NUR ---
PT RESTING INBED AWAKE. PT IS ALERT AND ORIENTED TO SELF ONLY. REORIENTATION UNSUCCESSFUL. PT AGITATED AT THIS TIME. PT ATTEMPTING TO GET OUT OF BED. PT ATTMEPTING TO PULL OUT GROVES. PT TRYING TO GET OUT OF BED. DR FANG NOTIFIED ORDERS RECEIVED. CALL LIGHT IN REACH. WILL CONTINUE TO MONITOR.
--- NOTE | 2019-10-24 07:20 | NUR ---
PT STRIKING OUT AND HITTING STAFF. REMIANS CONFUSED. REORIENTATION UNSUCCESSFUL. DR FANG NOTIFIED. RECIEVED ORDER TO PLACE PATIENT IN RESTRAINTS.
--- NOTE | 2019-10-24 07:35 | NUR ---
EL COLIN EDMONDADILENE NOTIFIED THAT PATIENT WAS PLACED IN RESTRAINTS FOR PATIENT AND STAFF SAFETY.
--- NOTE | 2019-10-24 07:55 | NUR ---
Attempted to see patient. She was being borderline combative with nursing and not appropriate for PT at this time. We will resume in AM
--- NOTE | 2019-10-24 08:44 | NUR ---
PT GIVEN PO MEDS IN APPLESAUCE. AFTER TAKING MEDSATTEMPTED TO STRIKE STAFF AGAIN.
--- NOTE | 2019-10-24 10:00 | NUR ---
FAMILY AT BEDSIDE AT THIS TIME. UPDATE PROVIDED, CODE PROVIDED. PT RESTING IN BED WITH EYES CLOSED. RESP ARE EVEN AND UNLABORED. NO DISTRESS NTOED. CALL LIGHT IN REACH. WILL CONTINUE TOMONITOR.
--- NOTE | 2019-10-24 12:40 | NUR ---
RECVD REPORT FROM SAMMIE DENNIS. ASSUMED CARE OF PT. PT RESTING IN BED. NO S/S OF DISTRESS AT THIS TIME.
--- NOTE | 2019-10-24 12:53 | NUR ---
PT SNORING IN BED, ASLEEP ON BACK. ON 2.5L NC, O2 93%. SOFT WRIST RESTRAINTS ON FOR AGGRESSIVE BEHAVIOR TOWARDS STAFF. LUNG SOUNDS COARSE THROUGHOUT, BREATHING EVEN/UNLABORED. ABD SOFT. AFIB ON TELE IN 70'S. CARDIZEM @15 & NS @20 RUNNING INTO HERVE #20. CALLBELL IN HAND. CURTAINS/DOORS OPEN FOR BETTER OBSERVATION. WILL CONTINUE TO MONITOR.
--- NOTE | 2019-10-24 13:17 | NUR ---
started new bag of cardizem.
--- NOTE | 2019-10-24 15:04 | NUR ---
DR FANG & RAINER OBRIEN @BEDSIDE WITH PT.
--- NOTE | 2019-10-24 15:14 | NUR ---
PT MAKING SOUNDS, TRYING TO PULL UP ARMS. WILL CONTINUE TO MONITOR.
--- NOTE | 2019-10-24 15:51 | NUR ---
PT LAUGHING AT TV, TALKING TO HERSELF. PT REMAINS CONFUSED, NOT FOLLOWING DIRECTIONS. WILL CONTINUE TO MONITOR.
--- NOTE | 2019-10-24 16:21 | NUR ---
AFLUTTER OBSERVED ON TELE. NOTIFIED RAINER OBRIEN, SHE ORDERED NEW EKG FOR VERIFICATION. RT @BEDSIDE FOR EKG.
--- NOTE | 2019-10-24 16:25 | NUR ---
EKG SHOWED AFIB, HR 82 BPM. PT RESTING IN BED. NO S/S OF DISTRESS AT THIS TIME.
--- NOTE | 2019-10-24 17:51 | NUR ---
RT @BEDSIDE FOR BREATHING TREATMENT. EMPTIED 425cc DARK YELLOW CLEAR URINE FROM CATH GROVES. AUDIBLE CRACKLES HEARD FROM BEDSIDE, BREATHING EVEN/UNLABORED, 93% ON 2.5L NC. PT STATES SHE IS NOT COLD, BLANKETS GATHERED AT THIGHS. WRIST RESTRAINTS REMAIN ON D/T PT GRABBING AT ICU STAFF AND INABILITY TO FOLLOW DIRECTIONS. PT REMAINS DROWSY. WEI OWENS ON. TV ON. CALLBELL W/IN REACH. WILL CONTINUE TO MONITOR.
--- NOTE | 2019-10-24 19:00 | NUR ---
drowsy when awakened. oriented to name only. o2 cont per nc. bus monitor shows a fib pvcs hr 101. #20 yu cardizem gtt infusing @ 15mghr ns infusing @ 20cchr. refused po fluids. lilly cath in place. urine clear yellow. requires total care for all needs. fall precautions cont.
--- NOTE | 2019-10-24 19:20 | NUR ---
junior olivo here. orders rec'd.
--- NOTE | 2019-10-24 19:30 | NUR ---
bp 183/85. apresoline 10mg ivp given.
--- NOTE | 2019-10-24 19:45 | NUR ---
BP 114/92.
--- NOTE | 2019-10-24 22:00 | NUR ---
pt crying @ present. asked pt why she was crying. pt said. "i'm sad. why did you leave me?" attempted to reorient without success.
[2019-10-25] VITALS (16 sets, daily range): BP systolic 107–168; BP diastolic 54–95
--- NOTE | 2019-10-25 00:01 | NUR ---
eyes closed. no distress. ekg monitor shows a fib pvcs hr 86.
--- NOTE | 2019-10-25 02:00 | NUR ---
awake. confused. attempting to get oob. pulled off information security associate-replaced. pt said "i need to get the plastic bag & pack my clothes." attempted to reorient without success.
--- NOTE | 2019-10-25 04:00 | NUR ---
eyes closed. no distress. sales floor team leader shows a fib pvcs hr 92.
[2019-10-25 05:53] LABS: HEMATOCRIT 39.5 % (37.0-47.0); HEMOGLOBIN 12.4 g/dl (12.0-16.0); MEAN CELL VOLUME 87.2 fL CALC (80.0-100.0); MEAN CORPUSCULAR HGB 27.4 pG CALC (26.0-32.0); MEAN CORPUSCULAR HGB CONC 31.4 g/L CALC (32.0-36.0); NEUT# 11.7 thou/uL (2.00-7.15); RED BLOOD COUNT 4.53 mill/uL (4.20-5.60); RED CELL DISTRI WIDTH 14.2 % (11.5-15.5)
[2019-10-25 06:25] LABS: ANION GAP 6 (6-22 (CALC)); BUN 31 mg/dL (8-23); BUN/CREATININE RATIO 70 (12-20 (CALC)); CARBON DIOXIDE 35 mmol/l (22-30); CHLORIDE 101 mmol/l (95-108); CREATININE 0.4 mg/dL (0.5-1.0); GFR > 60 ML/MIN (>=60 (CALC)); GFR FOR AFR.AMER. > 60 ML/MIN (>=60 (CALC)); POTASSIUM 3.3 mmol/l (3.5-5.1); SODIUM 139 mmol/l (137-146)
--- NOTE | 2019-10-25 08:09 | NUR ---
ATTEMPTED TO FEED PT BREAKFAST & GIVE HER AM MEDICATION. PT HALLUCINATING; SEEING PEOPLE IN ROOM THAT ARE NOT THERE. REFUSING MEDICINE BC SHE ALREADY HAD IT AND IM GOING TO OVERDOSE HER. PT SPITTING FOOD & MEDICINE ACROSS ROOM AND AT THIS RN. PT SCREAMING & YELLING. PT TRYING TO SCRATCH & GRAB THIS RN ANGRILY. PT THEN RIPPING HER 02 & CLOTHES OFF. PTS RESTRAINTS TIGHTENED. PT REFUSING TO LET THIS RN CLEAN HER UP FROM THE FOOD/MEDICINE. AFTER ABOUT 5 MINS, PT LET STAFF PUT HER NC BACK IN. PT ACTIVELY TRYING TO CLIMB OUT OF BED.
--- NOTE | 2019-10-25 08:31 | NUR ---
PT SCREAMING "[id number]" & "GET ME OUT OF HERE". PT TRIED TO BITE THIS RN WHEN I TRIED TO REATTACH CARDIAC LEADS. DOORS SHUT TO REDUCE THE NOISE BC OTHER PTS ARE COMPLAINING. CURTAINS REMAIN OPEN FOR OBSERVATION.
--- NOTE | 2019-10-25 08:59 | NUR ---
PT CONTINUES TO SCREAM IN ROOM, UNABLE TO REDIRECT. PT GETS PHSYICALLY AGGRESSIVE WHENEVER ANYONE NEARS HER BED. PT MEDICATED WITH IV ATIVAN. BILATERAL SOFT WRIST RESTRAINTS REMAIN IN PLACE, CURTAINS REMAIN OPEN.
--- NOTE | 2019-10-25 09:35 | NUR ---
HIEU CALLED FOR UPDATE, INFORMED OF CONTINUE CONFUSED STATE. HE STATES HE WILL COME VISIT TODAY.
--- NOTE | 2019-10-25 09:54 | NUR ---
RAINER OBRIEN @BEDSIDE WITH PT. PT INSISTING SHE IS AT A SCHOOL AND NOT THE HOSPITAL. PT BECAME VERY ANGRY THAT FRUIT OR NUT GROWER STATES SHE IS IN HOSPITAL. NC REDJUSTED- PT PUT IT HOW SHE LIKES IT (NOT IN HER NOSTRILS). TELE REPLACED- PT TORE THEM OFF BC "SHE'S NOT IN THE HOSPITAL".
--- NOTE | 2019-10-25 11:37 | NUR ---
PT HAS STOPPED YELLING BUT WILL OCCASSIONALLY TRY TO THROW HER LEGS OVER THE SIDE OF THE BED AND PULL AT HER RESTRAINTS STATING SHE "NEEDS TO GET OUT OF HERE". PT NOT REDIRECTABLE; HALLUCINATING. BREATHING EVEN/UNLABORED. AFIB ON MONITOR, HR IN THE 80'S. 94% ON 2L NC.
--- NOTE | 2019-10-25 11:53 | NUR ---
PT DROWSY PHILLIPS MEDICATION. STILL TRYING TO GET OUT OF BED. REFUSING LUNCH. SCOOTING ALL OVER BED.
--- NOTE | 2019-10-25 13:29 | NUR ---
PT SITTING ON SIDE OF BED WITH PHYSICAL THERAPIST. PT COUGHING, LAUGHING, HALLUCINATING. PT PLACED BACK IN BED.
--- NOTE | 2019-10-25 15:15 | NUR ---
PT ARRIVED TO ICU5 BY STRETCHER WITH TELE & O2. PT ABLE TO AMBULATE x1 ASSIST TO NEW BED. PT ATTACHED TO MONITORS. EDUCATED ON CALLBELL & FALL RISK.
--- NOTE | 2019-10-25 15:33 | NUR ---
PT UP TO BSC FOR URINATION.
--- NOTE | 2019-10-25 15:42 | NUR ---
GRANDSON & HIS @BEDSIDE WITH PT; TRYING TO GET PT TO DRINK SOME ENSURE.
--- NOTE | 2019-10-25 16:09 | NUR ---
PT DRINKING "MILKSHAKE"/STRAWBERRY ENSURE FOR GRANDSON. PT ABLE TO ID GRANDSON & FEMALE IN ROOM BY NAME.
--- NOTE | 2019-10-25 16:50 | NUR ---
DR FANG @BEDSIDE WITH PT +2 FAMILY MEMBERS. DISCUSSED TEST RESULTS & POC. ANSWERED FAMILIES QUESTIONS.
--- NOTE | 2019-10-25 17:12 | NUR ---
RT @BEDSIDE FOR BREATHING TREATMENT.
--- NOTE | 2019-10-25 17:30 | NUR ---
GRANDDAUGHTER @BEDSIDE, HELPING PT EAT DINNER.
--- NOTE | 2019-10-25 19:15 | NUR ---
sedated. slightly arouses to speech. o2 cont per nc. commission specialist shows a fib pvcs hr 76. #20 yu cardizem infusing @ 15mghr ns infusing @ 20cchr. lilly cath in place. urine dk yellow. wrist restraints cont. turned & repositioned. fall precautions cont.
--- NOTE | 2019-10-25 22:00 | NUR ---
eyes closed. no distress. photographer helper shows a fib pvcs hr 68.
[2019-10-26] VITALS (26 sets, daily range): BP systolic 116–175; BP diastolic 55–104
--- NOTE | 2019-10-26 00:01 | NUR ---
resting quietly. no distress. o2 cont.
--- NOTE | 2019-10-26 02:00 | NUR ---
resting quietly resps even & unlabored. no apparent distress.
--- NOTE | 2019-10-26 04:00 | NUR ---
eyes closed. no distress. o2 cont.
--- NOTE | 2019-10-26 05:20 | NUR ---
lab here. blood drawn.
[2019-10-26 06:02] LABS: HEMATOCRIT 39.2 % (37.0-47.0); HEMOGLOBIN 12.3 g/dl (12.0-16.0); IMMATURE GRANULOCYTES 1.7 % (0.0-5.0); MEAN CELL VOLUME 87.1 fL CALC (80.0-100.0); MEAN CORPUSCULAR HGB 27.3 pG CALC (26.0-32.0); MEAN CORPUSCULAR HGB CONC 31.4 g/L CALC (32.0-36.0); NEUT# 6.97 thou/uL (2.00-7.15); RED BLOOD COUNT 4.5 mill/uL (4.20-5.60); RED CELL DISTRI WIDTH 14.7 % (11.5-15.5)
[2019-10-26 06:11] LABS: ANION GAP 5 (6-22 (CALC)); BUN 28 mg/dL (8-23); BUN/CREATININE RATIO 65 (12-20 (CALC)); CARBON DIOXIDE 36 mmol/l (22-30); CHLORIDE 102 mmol/l (95-108); CREATININE 0.4 mg/dL (0.5-1.0); GFR > 60 ML/MIN (>=60 (CALC)); GFR FOR AFR.AMER. > 60 ML/MIN (>=60 (CALC)); POTASSIUM 3.5 mmol/l (3.5-5.1); SODIUM 139 mmol/l (137-146)
--- NOTE | 2019-10-26 06:40 | NUR ---
REPORT RECVD FROM RAYMUNDO WISEMAN AT START OF SHIFT
--- NOTE | 2019-10-26 08:26 | NUR ---
PT REFUSED BREAKFAST; [employer] SUPERVISOR PRESS ROOM @BEDSIDE TO FEED PT. PT DROWSY WTIH GARBLED SPEECH.
--- NOTE | 2019-10-26 08:57 | NUR ---
RT @BEDSIDE FOR BREATHING TREATMENT.
--- NOTE | 2019-10-26 09:16 | NUR ---
O2 DECREASED TO 2L
--- NOTE | 2019-10-26 10:00 | NUR ---
PT FRIENDLY WITH STAFF. A&O TO NAME & PLACE (HOSPITAL); STATES SHES "VERY SICK". STATES SHE IS 48 YO, INSTEAD OF 79; UNKNOWN DATE, UNKNOWN . RESTRAINTS OFF AT THIS TIME. PT TOOK PO MEDS AND DRANK 1/2 OF ENSURE (STRAWBERRY MILKSHAKE).
--- NOTE | 2019-10-26 11:15 | NUR ---
DR FANG @BEDSIDE ASSESSING PT.
--- NOTE | 2019-10-26 13:58 | NUR ---
EL & KEM UPDATED ON PTS STATUS AT BEDSIDE. REQUEST CM TO ANSWER QUESTIONS. KARI CALLED TO ROOM.
--- NOTE | 2019-10-26 18:12 | NUR ---
PT FEED DINNER, DRANK 1/2 OF ENSURE "MILKSHAKE", & 1/2 OF PUDDING.
--- NOTE | 2019-10-26 18:50 | NUR ---
REPORT RECEIVED FROM SAMMIE UNDERWOOD. PT RESTING IN SEMI FOWLERS WITH EYES CLOSED AND NO SIGNS OF DISTRESS. RESPIRATIONS EVEN AND UNLABORED ON HUMIDIFIED OXYGEN 2L VIA NC. CARDIZEM INFUSING AT 5 MG/HR; NS AT 20 ML/HR; IV SITE APPEARS HEALTHY WITHOUT SIGNS OF INFILTRATION OR PHLEBITIS. LUNGS ARE COURSE THROUGHOUT; NON PRODUCTIVE COUGH. BOWEL SOUNDS ARE ACTIVE; NO BM SINCE 10/21. 16F GROVES CATHETER PATENT DRAINING CLOUDY DARK YELLOW URINE IN ADEQUATE AMOUNTS. WEI HOSE INTACT TO BLE. VSS. SAFETY MEASURES IN PLACE. NEEDS ARE ANTICIPATED BY STAFF.
--- NOTE | 2019-10-26 21:22 | NUR ---
MILK OF MAGNESIA GIVEN WITH HS MEDS. PT PLEASANT AND COOPERATIVE. DECLINED REPOSITIONING STATING THAT SHE IS COMFORTABLE; DID ALLOW ELEVATION OF FEET WITH PILLOWS. AFIB WITH PVC'S ON TELEMETRY WITH HEART RATE 90S-100S.
[2019-10-27] VITALS (21 sets, daily range): BP systolic 122–174; BP diastolic 57–109
--- NOTE | 2019-10-27 | NUR ---
PT WOKE UP FROM SLEEP CONFUSED AND YELLING OUT, "WAKE ME UP! WAKE ME UP!" EASILY REORIENTED AND PLEASANT. SCHEDULED ZYPREZ HELD PT WAS SLEEPING. PT ALLOWED REPOSITIONING NOW RESING ON RIGHT SIDE WITH PILLOWS. OFFERED SIPS OF WATER.
--- NOTE | 2019-10-27 02:01 | NUR ---
PT ASLEEP WITH NO SIGNS OF DISTRESS. RESPIRATIONS EVEN AND UNLABORED ON OXYGEN. CARDIZEM CONTINUES AT 5 MG/HR; HEART RATE IN THE 70S-90S. SAFETY MEAUSRES IN PLACE.
--- NOTE | 2019-10-27 05:16 | NUR ---
GROVES CARE PROVIDED AND PT REPOSITIONED. RT AT BEDSIDE. FOR BREATHING TREATMENT.
--- NOTE | 2019-10-27 06:45 | NUR ---
REPORT RECVD FROM SAMMIE TREVIÑO AT START OF SHIFT.
--- NOTE | 2019-10-27 07:51 | NUR ---
POTABLE WATER TREATMENT OPERATOR @BEDSIDE, FEEDING PT BREAKFAST.
--- NOTE | 2019-10-27 08:05 | NUR ---
PT A&Ox3, AWAKE/ALERT, KNOWS NAME, , AGE (79 SOMETHING), & PLACE.
--- NOTE | 2019-10-27 12:01 | NUR ---
PETER KENYON STOPPED PER DR FANG
--- NOTE | 2019-10-27 12:02 | NUR ---
PT NOT ALLOWING THIS RN TO CHECK FOR BM; PT GRABBED COVERS TIGHTLY. STATES SHE WANTS HER SON & GRANDDAUGHTER. ATTEMPTED TO REACH BOTH MULTIPLE TIMES W/OUT SUCCESS.
--- NOTE | 2019-10-27 13:15 | NUR ---
SON @BEDSIDE UPDATED ON PTS STATUS & POC. SON STAYED BREIFLY THEN LEFT.
--- NOTE | 2019-10-27 13:43 | NUR ---
KATHLEEN HAGEN, CALLED FOR UPDATE. LEFT HIS CELL# [phone]
--- NOTE | 2019-10-27 15:06 | NUR ---
PT ASSISTED x2 TO BSC FOR BM. LARGE LIGHT BROWN SOFT BM. PT A&Ox3 BUT CONFUSED. PT THINKS THE LIGHT ON THE CEILING IS A FAN.
--- NOTE | 2019-10-27 16:15 | NUR ---
FAN PLACED IN PTS ROOM D/T PT C/O HOT ROOM.
--- NOTE | 2019-10-27 17:20 | NUR ---
PT REFUSED DINNER. SLEEPING IN BED. NO S/S OF DISTRESS. VSS. CURTAIN OPEN FOR BETTER OBS. BREATHING EVEN/UNLABORED.
--- NOTE | 2019-10-27 18:45 | NUR ---
REPORT FROM Janet RUCKER RN. ASSUMED PT. CARE.
--- NOTE | 2019-10-27 19:30 | NUR ---
PT. FOUND RESTING WITH EYES CLOSED. EASILY AROUSABLE TO LIGHT VERBAL STIMULI. RESPS EVEN AND UNLABORED. PT. ORIENTED TO PERSON ONLY AT THIS TIME. COARSE BREATH SOUNDS THROUGHOUT. NO LOWER EXT EDEMA NOTED. DISTIL PULSES INTACT. PT. BELIEVES SHE IS AT [facility]CIAN[facility] AT THIS TIME. REORIENTED TO SITUATION AND LOCATION. PT. PLEASANT AND COOPERATIVE AT THIS TIME. GROVES CATHETER IN PLACE AND PATENT. MCNAIR. DENIES PAIN. BOWEL SOUNDS ACTIVE. UPDATED ON PLAN OF CARE. CALL LIGHT WITHIN REACH. WILL CONTINUE TO CLOSELY MONITOR.
--- NOTE | 2019-10-27 21:40 | NUR ---
PT. RESTING IN BED IN NO DISTRESS. RESPS REMAIN EVEN AND UNLABORED. BP/HR REMAIN ELEVATED. A-FIB RATE IN THE 100-110'S. VOICES NO COMPLAINTS OR NEEDS AT THIS TIME. CALL LIGHT WITHIN REACH.
--- NOTE | 2019-10-27 23:50 | NUR ---
WHILE ATTEMPTING TO REPLACE BLOOD PRESSURE CUFF THAT PATIENT HAS PULLED OFF, PT. BECAME IRRATE, YELLING AND ATTEMPTING TO STRIKE OUT AT STAFF. PT. MEDICATED PER PHYSICIAN ORDERS. SHE REMAINS UNCOOPERATIVE WITH CARE AT THIS TIME. BOTH ATTEMPTING TO HIT AND KICK STAFF.
[2019-10-28] VITALS (9 sets, daily range): BP systolic 107–174; BP diastolic 53–96
[2019-10-28 06:22] LABS: ALBUMIN 3.1 g/dL (3.2-5.0); ALKALINE PHOSPHATASE 65 u/l (38-126); ANION GAP 9 (6-22 (CALC)); BUN 24 mg/dL (8-23); BUN/CREATININE RATIO 45 (12-20 (CALC)); CHLORIDE 105 mmol/l (95-108); CREATININE 0.5 mg/dL (0.5-1.0); GFR > 60 ML/MIN (>=60 (CALC)); GFR FOR AFR.AMER. > 60 ML/MIN (>=60 (CALC)); SGOT/AST 30 u/l (9-36); SODIUM 138 mmol/l (137-146); TOTAL PROTEIN 5.6 g/dL (6.3-8.2)
[2019-10-28 06:30] LABS: CARBON DIOXIDE 28 mmol/l (22-30)
[2019-10-28 06:54] LABS: HEMOGLOBIN 13.9 g/dl (12.0-16.0); IMMATURE GRANULOCYTES 1.7 % (0.0-5.0); MEAN CELL VOLUME 86.9 fL CALC (80.0-100.0); MEAN CORPUSCULAR HGB 26.5 pG CALC (26.0-32.0); MEAN CORPUSCULAR HGB CONC 30.5 g/L CALC (32.0-36.0); NEUT# 11.63 thou/uL (2.00-7.15); RED BLOOD COUNT 5.25 mill/uL (4.20-5.60); RED CELL DISTRI WIDTH 14.7 % (11.5-15.5)
[2019-10-28 07:00] LABS: HEMATOCRIT 42.9 % (37.0-47.0)
--- NOTE | 2019-10-28 07:30 | NUR ---
pt awake in bed; no apparent distress noted; pt offers no complaints; assessment completed at this time; pt alert to person and place; calm and cooperative with this news writer at this time; denies pain; no n/v noted; resp even and unlabored; lungs coarse with wheezing throughout; skin color wnl; o2 per nc at 2L; hr irreg; strong pulses; no edema noted; bilat suzanne hose intact; afib on monitor; abd soft with bs present; no bm noted per news writer; lilly to gravity with cath strap intact; #20 patent to yu; no redness or edema noted at site; bruising noted to bilat upper extremities; pt refusing to reposition and refusing breakfast; call light within reach; will continue to monitor
--- NOTE | 2019-10-28 08:05 | NUR ---
Dr Goel present at bedside to assess pt and discuss plan of care
--- NOTE | 2019-10-28 08:13 | NUR ---
awake in bed; no apparent distress noted; pt offers no complaints; afib on monitor; call light within reach; will continue to monitor
--- NOTE | 2019-10-28 10:28 | NUR ---
resting in bed with eyes closed; no apparent distress noted; afib on monitor; iv intact; call light within reach; will continue to monitor
--- NOTE | 2019-10-28 11:58 | NUR ---
Pt seen this am for treatment. She was resting bed without complaints voiced. LE AROM ex performed in bed. Pt moved supine to sit with min/mod assist of one. She transferred to [facility] with mod/max assist. Pt had BM and urinated, nursing aware. She was returned to bed and positioned appropriately. CV monitored during treatment and o2 in place. Pt left in bed with call zepeda in reach. Nursing aware.
--- NOTE | 2019-10-28 12:00 | NUR ---
afib on monitor; no apparent distress noted; bed alarm active for pt safety
--- NOTE | 2019-10-28 13:45 | NUR ---
bed alarming; pt attempting to get to bsc; assisted to bsc; #20 to yu noted leaking; iv removed with catheter tip intact; back to bed; will continue to monitor
--- NOTE | 2019-10-28 14:00 | NUR ---
resting in bed with eyes closed; no apparent distress noted; o2 per nc; resp even and unlabored; iv intact; call light within reach; will continue to monitor
--- NOTE | 2019-10-28 15:42 | NUR ---
staff at bedside again to attempt iv; pt refusing; will notify
--- NOTE | 2019-10-28 15:46 | NUR ---
Dr Goel informed pt refusing iv access/ no iv access
--- NOTE | 2019-10-28 16:06 | NUR ---
resting with eyes closed; easily aroused; becomes slightly irritated with staff; afib on monitor; o2 per nc; offers no complaints; declining linen change; call light within reach; will continue to monitor
--- NOTE | 2019-10-28 18:07 | NUR ---
awake in high fowlers position earting dinner; no apparent distress noted; pt offers no complaints; no iv access; o2 per nc; bed alarm active for pt safety; afib on monitor; call light within reach
--- NOTE | 2019-10-28 18:43 | NUR ---
report called to med/surg Kaila Isidro RN
--- NOTE | 2019-10-28 18:45 | NUR ---
REPORT FROM Rory RECINOS RN. ASSUMED PT. CARE.
--- NOTE | 2019-10-28 19:45 | NUR ---
PT. AWAKE, ALERT, ORIENTED X 3. APPROPRIATE, CALM AND COOPERATIVE. PT. DENIES COMPLAINTS OF PAIN OR NEED AT THIS TIME. RESPS EVEN, SHALLOW, UNLABORED. SKIN WARM AND DRY, AFEBRILE. FAMILY AT BEDSIDE. UPDATED ON NEED FOR PLACEMENT AND FLEXIBILITY ON LOCATION OF REHAB FACILITY. PT. STABLE, HR/BP UNDER CONTROL. BOWEL SOUNDS ACTIVE. NO EDEMA NOTED. WILL CONTINUE TO CLOSELY MONITOR.
--- NOTE | 2019-10-28 22:08 | NUR ---
PT. REMAINS AWAKE, ALERT, APPROPRIATE. PT. WATCHING WRESTLING AT THIS TIME. STATES SHE ENJOYS THE PROGRAM. PROVIDED WITH WATER. PT. HAS TAKEN HER HS MEDICATIONS. OFFERED BEDSIDE COMMODE, BUT PT. DECLINES.
[2019-10-29] VITALS (9 sets, daily range): BP systolic 91–134; BP diastolic 52–67
--- NOTE | 2019-10-29 01:05 | NUR ---
PT. REMAINS COOERATIVE AND AFEBRILE AT THIS TIME. AGAIN OFFERED BEDSIDE COMMODE, BUT PT. AGAIN DECLINES NEED. VOICES NO COMPLAINTS OR NEEDS. WILL CONTINUE TO CLOSELY MONITOR.
--- NOTE | 2019-10-29 04:25 | NUR ---
PT. REMAINS RESTING IN BED WITH EYES CLOSED. REMAINS COOPERATIVE WITH CARE TONIGHT. BP/HR REMAIN STABLE. NO DISTRESS.
--- NOTE | 2019-10-29 07:40 | NUR ---
pt resting in bed with eyes closed; easily aroused to verbal stimuli; alert and oriented x3; assessment completed at this time; pt offers no complaints; denies pain; no n/v noted; resp even and unlabored; lungs coarse; skin color wnl; o2 per nc at 2L; LOAN AUDITOR cough noted; hr irreg; strong pulses; trace edema noted to ble; bilat suzanne hose intact; afib on monitor; abd soft with bs present; no bm noted per film writer; no urine to inspect at this time; bsc; no iv access; bruising noted to bue; plan of care/ am meds explained; bed alarm active for pt safety; call light within reach; will continue to monitor
[2019-10-29] MEDS ORDERED: TRAMADOL HCL50 MG PO (08:07)
[2019-10-29] MEDS ORDERED: LEVAQUIN750 MG PO (08:07)
[2019-10-29] MEDS ORDERED: PREDNISONE10 MG PO (08:07)
--- NOTE | 2019-10-29 08:17 | NUR ---
resting in bed with eyes closed; no apparent distress noted; afib on monitor; no iv access; awakened for breakfast/ refusing; bed alarm active for pt safety; call light within reach; will continue to monitor
--- NOTE | 2019-10-29 08:38 | NUR ---
am meds explained and administered; pt apparentm distress noted; cont to refuse breakfast; will continue to monitor
--- NOTE | 2019-10-29 10:00 | NUR ---
resting in bed with eyes closed; afib on monitor; easy to arouse; offers no complaints; declined bsc at this time; will continue to monitor
--- NOTE | 2019-10-29 10:33 | NUR ---
Miss Garcia was sleeping in supine position upon entering room. Therapist ask pt. if she would like to participate in therapy and she responded "NO". tray table and call zepeda left by pt. side. Informed nurse aboiut refusal for therapy.
--- NOTE | 2019-10-29 11:59 | NUR ---
awake; assist to bsc x 2 max assist; voiding without pain or burning; no iv access; afib on monitor; o2 per nc; deny needs; call light within reach; will continue to monitor
--- NOTE | 2019-10-29 13:40 | NUR ---
son Avel called per freelance writer; informed of transfer to & Rehab
--- NOTE | 2019-10-29 13:45 | NUR ---
Dr Goel called per this selling underwriter in regards to home o2 depend; verbal order received
--- NOTE | 2019-10-29 13:45 | NUR ---
[facility]
== END 2019-10-29 13:50 | DRG 189 ==
LOC: EDPENDDISDT → EDPENDDISTM → ED 14:23 → ED-I 16:17 → ED 16:27 → ED-I 16:28 → ICU 16:28
PROVIDERS: Internal Medicine; Nurse Practitioner Family; ADMIT Internal Medicine; ATTEND Internal Medicine
DX: J96.22 Acute and chronic respiratory failure with hypercapnia (principal); G93.41 Metabolic encephalopathy; J18.9 Pneumonia, unspecified organism; J43.9 Emphysema, unspecified; J96.21 Acute and chronic respiratory failure with hypoxia; I48.91 Unspecified atrial fibrillation; I10 Essential (primary) hypertension; E78.5 Hyperlipidemia, unspecified; F32.9 Major depressive disorder, single episode, unspecified; E87.6 Hypokalemia; K21.9 Gastro-esophageal reflux disease without esophagitis; Z86.73 Personal history of transient ischemic attack (TIA), and cerebral infarction without residual deficits; Z78.1 Physical restraint status
CPT/HCPCS: J1956; J2060; S0166

== ENCOUNTER 2020-01-15 | Emergency (ER) | payer MEDICARE, OTHER ==
[~2020-01-15] MED LIST changes: +LEVAQUIN750 MG PO
[2020-01-15] MEDS ORDERED: OLANZAPINE5 MG PO (03:10)
[2020-01-15 03:43] LABS: URINE BILIRUBIN - DIPSTICK NEGATIVE (NEGATIVE); URINE BLOOD DIPSTICK NEGATIVE (NEGATIVE); URINE COLOR YELLOW; URINE GLUCOSE - DIPSTICK NEGATIVE (NEGATIVE); URINE KETONE NEGATIVE (NEGATIVE); URINE NITRITE - DIPSTICK NEGATIVE (Negative); URINE PH 6.5 (4.5-8.0); URINE PROTEIN - DIPSTICK NEGATIVE (NEG-TRACE); URINE SPECIFIC GRAVITY 1.015
[2020-01-15 03:45] LABS: HEMATOCRIT 33.9 % (37.0-47.0); HEMOGLOBIN 10.7 g/dl (12.0-16.0); IMMATURE GRANULOCYTES 0.2 % (0.0-5.0); MEAN CELL VOLUME 91.4 fL CALC (80.0-100.0); MEAN CORPUSCULAR HGB 28.8 pG CALC (26.0-32.0); MEAN CORPUSCULAR HGB CONC 31.6 g/L CALC (32.0-36.0); NEUT# 3.58 thou/uL (2.00-7.15); RED BLOOD COUNT 3.71 mill/uL (4.20-5.60); RED CELL DISTRI WIDTH 15.1 % (11.5-15.5)
[2020-01-15 03:46] LABS: URINE LEUK ESTERASE TRACE (NEGATIVE)
[2020-01-15 04:17] LABS: ALBUMIN 3.7 g/dL (3.2-5.0); ALKALINE PHOSPHATASE 81 u/l (38-126); ANION GAP 12 (6-22 (CALC)); BILIRUBIN, TOTAL 0.5 mg/dL (0.0-1.4); BUN 14 mg/dL (8-23); BUN/CREATININE RATIO 26 (12-20 (CALC)); CARBON DIOXIDE 26 mmol/l (22-30); CHLORIDE 105 mmol/l (95-108); CREATININE 0.5 mg/dL (0.5-1.0); GFR > 60 ML/MIN (>=60 (CALC)); GFR FOR AFR.AMER. > 60 ML/MIN (>=60 (CALC)); POTASSIUM 3.5 mmol/l (3.5-5.1); SGOT/AST 23 u/l (9-36); SODIUM 139 mmol/l (137-146); TOTAL PROTEIN 6.6 g/dL (6.3-8.2)
== END 2020-01-15 05:41 ==
DX: R06.89 Other abnormalities of breathing (principal); J44.9 Chronic obstructive pulmonary disease, unspecified; I10 Essential (primary) hypertension; I48.91 Unspecified atrial fibrillation; Z86.73 Personal history of transient ischemic attack (TIA), and cerebral infarction without residual deficits; Z99.81 Dependence on supplemental oxygen; R40.4 Transient alteration of awareness

== ENCOUNTER 2020-08-09 21:52 | Emergency (ER) | payer MEDICARE, OTHER ==
[~2020-08-09] VITALS: Ht 162.6 cm; Wt 63.6 kg
[~2020-08-09 21:52] MED LIST changes: +OLANZAPINE5 MG PO
[2020-08-09] MEDS ORDERED: DILTIAZEM90 M1 PO (22:12)
[2020-08-09] MEDS ORDERED: DOCUSATE SOD100 M2 PO (22:13)
[2020-08-09 22:33] LABS: URINE BILIRUBIN - DIPSTICK NEGATIVE (NEGATIVE); URINE BLOOD DIPSTICK NEGATIVE (NEGATIVE); URINE COLOR YELLOW; URINE GLUCOSE - DIPSTICK NEGATIVE (NEGATIVE); URINE KETONE NEGATIVE (NEGATIVE); URINE LEUK ESTERASE NEGATIVE (NEGATIVE); URINE NITRITE - DIPSTICK NEGATIVE (Negative); URINE PH 5.5 (4.5-8.0); URINE PROTEIN - DIPSTICK 30 mg/dL (NEG-TRACE); URINE SPECIFIC GRAVITY 1.025; URINE UROBILINOGEN - DIPSTICK 0.2 E.U./dL (0.2)
[2020-08-09 22:55] LABS: URINE MUCUS FEW hpf (NONE-FEW); URINE RBC 0-2 RBC/hpf (0-5); URINE SQUAMOUS EPITHELIAL CELL FEW EPI/hpf (0-FEW)
[2020-08-10] VITALS: BP 167/68
--- NOTE | 2020-08-11 09:46 | NUR ---
Notified junior linux administrator [facility] + Covid results. ([phone]). Road Mixer Operator states they are already aware and patient is currently in isolation in their Covid unit. Results faxed to [facility] at [phone].
== END 2020-08-10 00:15 ==
LOC: ED 21:52
PROVIDERS: Family Medicine
DX: S01.511A Laceration without foreign body of lip, initial encounter (principal); S50.02XA Contusion of left elbow, initial encounter; U07.1 COVID-19; I10 Essential (primary) hypertension; I48.91 Unspecified atrial fibrillation; J44.9 Chronic obstructive pulmonary disease, unspecified; W01.0XXA Fall on same level from slipping, tripping and stumbling without subsequent striking against object, initial encounter; Y92.129 Unspecified place in nursing home as the place of occurrence of the external cause; Z86.73 Personal history of transient ischemic attack (TIA), and cerebral infarction without residual deficits; Z87.01 Personal history of pneumonia (recurrent)

== ENCOUNTER 2020-10-22 20:37 | Observation (INO) | payer MEDICARE, OTHER ==
[~2020-10-22] VITALS: Ht 162.6 cm; Wt 69.1 kg
[~2020-10-22 20:37] MED LIST changes: +DOCUSATE SOD100 M2 PO
--- NOTE | 2020-10-22 20:45 | NUR ---
ARRIVAL VIA EMS STRETCHER FROM HALF-WAY AFTER C/O CHEST/ABDOMINAL PAIN. NO COMPLAINTS OF PAIN AT THIS TIME. BP WAS NOTED TO BE ELEVATED.
--- NOTE | 2020-10-22 21:55 | NUR ---
W/P/D SKIN A/O X3 DENIES PAIN A FIB CONTROLLED NO ST T CHANGES
[2020-10-22 22:11] LABS: HEMATOCRIT 38.3 % (37.0-47.0); HEMOGLOBIN 11.6 g/dl (12.0-16.0); IMMATURE GRANULOCYTES 0.3 % (0.0-5.0); MEAN CELL VOLUME 90.5 fL CALC (80.0-100.0); MEAN CORPUSCULAR HGB 27.4 pG CALC (26.0-32.0); MEAN CORPUSCULAR HGB CONC 30.3 g/dL CAL (32.0-36.0); NEUT# 4.69 thou/uL (2.00-7.15); RED BLOOD COUNT 4.23 mill/uL (4.20-5.60); RED CELL DISTRI WIDTH 14.8 % (11.5-15.5)
--- NOTE | 2020-10-22 22:20 | NUR ---
ASSISTED TO COMMODE SHAIR TO VOID SPEC TO LAB VOIDED 150CC YELLOW URINE
[2020-10-22 22:24] LABS: ALBUMIN 4.1 g/dL (3.2-5.0); AMYLASE 237 u/l (30-110); ANION GAP 10 (6-22 (CALC)); BILIRUBIN, TOTAL 0.4 mg/dL (0.0-1.4); BUN 19 mg/dL (8-23); BUN/CREATININE RATIO 30 (12-20 (CALC)); CARBON DIOXIDE 31 mmol/l (22-30); CHLORIDE 104 mmol/l (95-108); CREATININE 0.6 mg/dL (0.5-1.0); GFR > 60 ML/MIN (>=60 (CALC)); GFR FOR AFR.AMER. > 60 ML/MIN (>=60 (CALC)); LIPASE 1820 u/l (23-300); POTASSIUM 4.3 mmol/l (3.5-5.1); SGOT/AST 34 u/l (9-36); SODIUM 140 mmol/l (137-146); TOTAL PROTEIN 7.7 g/dL (6.3-8.2)
[2020-10-22 22:26] LABS: ALKALINE PHOSPHATASE 124 u/l (38-126)
[2020-10-22 22:27] LABS: INTERNATIONAL NORMALIZED RATIO 1.1 RATIO (0.7-1.3); PROTHROMBIN TIME 10.6 SECONDS (9.0-12.5)
[2020-10-22 22:36] LABS: MYOGLOBIN 29 ng/mL (0 - 62)
[2020-10-22 22:54] LABS: URINE BILIRUBIN - DIPSTICK NEGATIVE (NEGATIVE); URINE BLOOD DIPSTICK TRACE-INTACT (NEGATIVE); URINE COLOR YELLOW; URINE GLUCOSE - DIPSTICK NEGATIVE (NEGATIVE); URINE KETONE NEGATIVE (NEGATIVE); URINE LEUK ESTERASE NEGATIVE (NEGATIVE); URINE NITRITE - DIPSTICK NEGATIVE (Negative); URINE PROTEIN - DIPSTICK 100 mg/dL (NEG-TRACE); URINE SPECIFIC GRAVITY >=1.030; URINE UROBILINOGEN - DIPSTICK 0.2 E.U./dL (0.2)
[2020-10-22 23:07] LABS: URINE BACTERIA FEW hpf; URINE EPITHELIAL CELLS MODERATE EPI/hpf (0-FEW)
--- NOTE | 2020-10-22 23:21 | NUR ---
A FIB CONTROLLED .W/P/D SKIN PLEASANT AND DENIES PAIN NO COUGH NO SOB
--- NOTE | 2020-10-23 00:15 | NUR ---
GCS 15 NO FOCAL WEAKNESSES DENIES PAIN NO SOB
--- NOTE | 2020-10-23 01:18 | NUR ---
W/P/D SKIN NO FOCAL DEFICITS NO SOB
--- NOTE | 2020-10-23 02:14 | NUR ---
W/P/D SKIN GCS 15 A FIB CONTROLLED RATE
--- NOTE | 2020-10-23 03:16 | NUR ---
ASSISTED PT TO BSC TO VOID PT REQUIRES MINIMAL ASSIST WITH MANEUVERS NO SOB NO DYSLNEA
--- NOTE | 2020-10-23 04:27 | NUR ---
ASLEEP NO COUGH NO CONGESTION NO DYSPNEA
--- NOTE | 2020-10-23 05:59 | NUR ---
AWAKENED FRPM SLEEP DENIES PAIN NO COUGH NO SOB,CONTROLLED A FIB GCS 15 UNCHANGED
--- NOTE | 2020-10-23 06:54 | NUR ---
PT REPORT TO JUANA COCHRAN
--- NOTE | 2020-10-23 07:24 | NUR ---
PT RESTING IN STRETCHER WITH EYES CLOSED. PATIENT A&O TO PERSON AND PLACE AT THIS TIME. PATIENT HYPERTENSIVE AT 202/91. HEART RATE 82 AFIB AT THIS TIME. PATIENT AWARE OF PLAN FOR ADMIT AND WAIT TIME, CALL CLARKE WITHIIN REACH.
--- NOTE | 2020-10-23 08:20 | NUR ---
PATIENT RESTING IN STRETCHER IN NAD. SHE AAWAKENS TO VERBAL STIMULI AND ANSWERS QUESTIONS APPROPRIATELY. PATIENT DENIES ANY PAIN AT THIS TIME. CALL CLARKE WITHIN [facility].
--- NOTE | 2020-10-23 09:00 | NUR ---
PATIENT REPORT CALLED TO SAMMIE SOSA.
--- NOTE | 2020-10-23 09:20 | NUR ---
Admission Note Report Given to: SAMMIE SOSA Transported by: Wheelchair X Stretcher Transported with: Nurse X Transporter X Patent IV X O2 X Boxing Machine Operator Location: ICU X MS2 PATIENT TO ROOM 280 ON TELE MONITOR IN STABLE CONDITION. PATIENT TRANSPORTED BY RAYMUNDO BAUER.
--- NOTE | 2020-10-23 09:35 | NUR ---
RECEIVED PATIENT FROM ER. PATIENT ALERT AND ORIENTED AT THIS TIME DENIES ANY PAIN AND STATES PAIN IS A 0 OUT OF SCALE OF 0-10. PATIENT ORIENTED TO ROOM AT THIS TIME TELE IN PLACE CALL LIGHT WITHIN REACH AND SIDERAILS UP X 2. PATIENT O2 ON 2 LITERS AT THIS TIME. SKIN IS INTACT AND NO OTHER NEEDS AT THIS TIME. PATIENT KEEPING PRUSE IN ROOM.
[2020-10-23 09:45] VITALS: BP 142/72
[2020-10-23 09:52] LABS: AMYLASE 144 u/l (30-110); LIPASE 288 u/l (23-300)
[2020-10-23 11:05] VITALS: BP 166/85
[2020-10-23 11:08] VITALS: BP 166/85
--- NOTE | 2020-10-23 13:02 | NUR ---
PATIENT D/C AT THIS TIME. VERBALIZES UNDERSTANDING OF D/C AND WILL RETURN BACK TO [facility] AND CONTINUE ALL CURRENT HOME MEDS. NO MEDS SENT HOME WITH MATEO.
--- NOTE | 2020-10-23 13:27 | NUR ---
SPOKE TO NURSE MARCY LPN AT [facility] AT THIS TIME. INFORMED PATIENT COULD RETURN AND TO F/U WITH PCP IN ONE WEEK AND TO CONTINUE ALL HOME MEDS.
--- NOTE | 2020-10-23 13:49 | NUR ---
Discharge instructions given. Patient verbalizes understanding of same. Discharged in stable condition via Wheelchair to [facility] with *Other. All belongings sent with pt.
== END 2020-10-23 13:54 ==
LOC: ED 20:37 → ED-I 23:40 → ED 10-23 00:02 → MS2 10-23 00:03 → ED-I 10-23 00:03 → ICU 10-23 00:03 → ED-I 10-23 03:26 → MS2 10-23 07:15
PROVIDERS: Emergency Medicine; ADMIT Internal Medicine; ATTEND Internal Medicine
DX: R07.9 Chest pain, unspecified (principal); K85.90 Acute pancreatitis without necrosis or infection, unspecified; N28.89 Other specified disorders of kidney and ureter; I16.0 Hypertensive urgency; I10 Essential (primary) hypertension; K21.9 Gastro-esophageal reflux disease without esophagitis; I48.91 Unspecified atrial fibrillation; J96.11 Chronic respiratory failure with hypoxia; J44.9 Chronic obstructive pulmonary disease, unspecified; E78.5 Hyperlipidemia, unspecified; F32.9 Major depressive disorder, single episode, unspecified; Z86.73 Personal history of transient ischemic attack (TIA), and cerebral infarction without residual deficits; Z20.828 Contact with and (suspected) exposure to other viral communicable diseases
CPT/HCPCS: Q9967

== ENCOUNTER 2020-12-12 05:36 | Emergency (ER) | payer MEDICARE, OTHER ==
[~2020-12-12] VITALS: Ht 162.6 cm; Wt 84.0 kg
[2020-12-12] MEDS ORDERED: ZOLOFT25 MG PO (06:08)
[2020-12-12] MEDS ORDERED: ZOLOFT50 MG PO (06:08)
[2020-12-12 09:20] VITALS: BP 179/82
== END 2020-12-12 09:20 ==
LOC: ED 05:36
PROC: 0HQ1XZZ Repair Face Skin, External Approach (ICD-10-PCS; principal; 2020-12-12)
DX: S01.112A Laceration without foreign body of left eyelid and periocular area, initial encounter (principal); I10 Essential (primary) hypertension; I48.91 Unspecified atrial fibrillation; W06.XXXA Fall from bed, initial encounter; Y92.122 Bedroom in nursing home as the place of occurrence of the external cause; Z20.822 Contact with and (suspected) exposure to COVID-19

== ENCOUNTER 2021-06-15 15:38 | Emergency (ER) | payer MEDICARE, OTHER ==
[~2021-06-15] VITALS: Ht 162.6 cm; Wt 77.0 kg
[~2021-06-15 15:38] MED LIST changes: +ZOLOFT25 MG PO
[2021-06-15] MEDS ORDERED: REFRESH TEARS0.5 % (16:09)
[2021-06-15] MEDS ORDERED: ACETAMINOPHEN325 MG PO (16:15)
[2021-06-15 19:50] VITALS: BP 185/77
== END 2021-06-15 20:30 ==
LOC: ED 15:38
DX: S00.03XA Contusion of scalp, initial encounter (principal); S00.01XA Abrasion of scalp, initial encounter; I48.20 Chronic atrial fibrillation, unspecified; I10 Essential (primary) hypertension; W18.30XA Fall on same level, unspecified, initial encounter; Y92.129 Unspecified place in nursing home as the place of occurrence of the external cause; Z98.1 Arthrodesis status

== ENCOUNTER 2021-09-02 12:37 | Inpatient (IN) | payer MEDICARE, OTHER ==
[2021-09-02] VITALS (7 sets, daily range): BP systolic 152–184; BP diastolic 70–124
[~2021-09-02] VITALS: Ht 152.4 cm; Wt 65.0 kg
[~2021-09-02 12:37] MED LIST changes: +ACETAMINOPHEN325 MG PO; +REFRESH TEARS0.5 %
--- NOTE | 2021-09-02 12:37 | NUR ---
PT TO ROOM FOR TRIAGE VIA EMS STRETCHER.
--- NOTE | 2021-09-02 12:45 | NUR ---
STROKE ALERT CALLED FOR WEAKNESS AND INCREASED SLURRED SPEACH
--- NOTE | 2021-09-02 12:48 | NUR ---
PT TAKEN TO CT SCAN WITH TELESTROKE
--- NOTE | 2021-09-02 12:50 | NUR ---
PT SPEAKING AND HELPING TO MOVE HERSELF OVER TO CT SCAN MACHINE. DENIES ANY INCREASED WEAKNESS, DENIES ANY CHEST PAIN, PT DOES PRESENT WITH FACIAL DROOP AND SLURRED SPEACH, BUT STATES THAT IS FROM A PREVIOUS STROKE THAT LEFT HER WITH LEFT SIDE WEAKNESS AND FACIAL DROOP;ING AND SLURRED SPEACH,
--- NOTE | 2021-09-02 12:56 | NUR ---
PER TELESTROKE AND NEUROLOGIST, PERFORMED [facility] SCALE. PT WAS GIVEN A 5 PER NEUROLOGIST SHE STATED MAINLY BECAUSE OF PREVIOUIS DEFICIET. PT STATES SHE MOVES AROUND IN HER ROOM WITH A WHEELCHAIR AND ASSISTANCE. CAN MOSTLY FEED HERSELF UNLESS IT INVOLVES CUTTING SOMETHING UP. DENIES ANY PROBLEM SWALLOWING. DENIES ANY CHEST PAIN
[2021-09-02 12:58] LABS: GFR > 60 ML/MIN (>=60 (CALC)); GFR FOR AFR.AMER. > 60 ML/MIN (>=60 (CALC))
--- NOTE | 2021-09-02 13:18 | NUR ---
AFTER MULTIPLE ATTEMPS FOR IV ACCESS FOR CTA, NOTIFIED AND PT WAS BROUGHT UP TO ER FOR POSSIBLE CENTRAL LINE ACCESS. DURING THAT TIME A # 20 WAS ESTABLISHED IN RFA BUT CT NEEDED AN AC ACCESS. ONCE BACK IN ER A AC ACCESS WAS OBTAINED. PT STATED SHE NEEDED TO URINATE, PLACED BEDPAN UNDER PT WITH PT LIFTING UP HER BOTTOM ON HER OWN. PT TALKING AND LAUGHING WITH STAFF, DENIES ANY NEW COMPLAINT. URINE OBTAINED AND SENT TO LAB
[2021-09-02 13:43] LABS: HEMATOCRIT 36.9 % (37.0-47.0); HEMOGLOBIN 11.5 g/dl (12.0-16.0); IMMATURE GRANULOCYTES 0.1 % (0.0-5.0); MEAN CELL VOLUME 90.4 fL CALC (80.0-100.0); MEAN CORPUSCULAR HGB 28.2 pG CALC (26.0-32.0); MEAN CORPUSCULAR HGB CONC 31.2 g/dL CAL (32.0-36.0); NEUT# 6.79 thou/uL (2.00-7.15); RED BLOOD COUNT 4.08 mill/uL (4.20-5.60); RED CELL DISTRI WIDTH 14.9 % (11.5-15.5)
[2021-09-02 14:00] LABS: ALBUMIN 3.8 g/dL (3.2-5.0); ANION GAP 9 (6-22 (CALC)); BUN 23 mg/dL (8-23); BUN/CREATININE RATIO 35 (12-20 (CALC)); CARBON DIOXIDE 27 mmol/l (22-30); CHLORIDE 106 mmol/l (95-108); CREATININE 0.6 mg/dL (0.5-1.0); GFR > 60 ML/MIN (>=60 (CALC)); GFR FOR AFR.AMER. > 60 ML/MIN (>=60 (CALC)); INTERNATIONAL NORMALIZED RATIO 1.1 RATIO (0.7-1.3); POTASSIUM 4.3 mmol/l (3.5-5.1); SODIUM 138 mmol/l (137-146); TOTAL PROTEIN 7.5 g/dL (6.3-8.2)
[2021-09-02 14:04] LABS: ALKALINE PHOSPHATASE 334 u/l (38-126); BILIRUBIN, TOTAL 1.2 mg/dL (0.0-1.4); SGOT/AST > 750 u/l (9-36)
--- NOTE | 2021-09-02 14:18 | NUR ---
PT TAKEN BACK TO CT. SCAN AFTER # 20 WAS ABLE TO BE PLACED IN RIGHT AC AFTER MULTIPLE ATTEMPTS BY MULTIPLE STAFF
[2021-09-02 14:20] LABS: URINE BILIRUBIN - DIPSTICK NEGATIVE (NEGATIVE); URINE BLOOD DIPSTICK NEGATIVE (NEGATIVE); URINE COLOR YELLOW; URINE GLUCOSE - DIPSTICK NEGATIVE (NEGATIVE); URINE KETONE NEGATIVE (NEGATIVE); URINE LEUK ESTERASE NEGATIVE (NEGATIVE); URINE PROTEIN - DIPSTICK 100 mg/dL (NEG-TRACE)
[2021-09-02 14:25] LABS: URINE NITRITE - DIPSTICK NEGATIVE (Negative)
[2021-09-02 14:26] LABS: URINE EPITHELIAL CELLS MODERATE EPI/hpf (0-FEW); URINE MUCUS MODERATE hpf (NONE-FEW)
--- NOTE | 2021-09-02 15:14 | NUR ---
HELPED PT IUP TO BEDSIDE COMMODE, PT NEEDED LITTLE ASSISTANCE. AND WAS PLACED BACK IN BED WITH LITTLE HELP. REMAINS PAIN FREE, WARM BLANKET GIVEN
--- NOTE | 2021-09-02 16:00 | NUR ---
PT BEGAN TRYING TO GET UP OUT OF BED, PULLING OFF MONITER LEADS. PUT PT BACK IN BED, BUT PT STARTED SCREAMING, TRYING TO SCRATCH, AND HIT, TRIED TO CALM PT DOWN, BUT SHE SCREAMED SHE WANTS TO GO BACK TO HER HOME, DR. RAMIREZ NOTIFIED OF INCREASED BLOOD PRESSURE AND AGITATED. ORDER FOR LABETOLOL AND ATIVAN GIVEN.
--- NOTE | 2021-09-02 16:20 | NUR ---
PT REMAINS TRYING TO GET OUT OF BED, YELLING AND HITTING, UNABLE TO OBTAIN BLOOD PRESSURE READING BECAUSE PT WILL NOT STAY STILL AND IS TRYING TO PULL OFF CUFF. RESP TECH HERE FOR BLOOD DRAW BUT PT STARTED HITTING AND PULLED OUT HER FOREARM IV, STARTED SCRATCHING AND KICKING. DR. RAMIREZ NOTIFIED AND ORDER GIVEN FOR HALDOL. HALDOL GIVEN PER ORDER. PT SCREAMING TO KEEP AWAY FROM HER. PULLING OFF HER OXYGEN AND STILL TRYING TO GET UP OUT OF BED. SEVERAL STAFF MEMBERS HOLDING PT DOWN TIL MEDICATION CAN TAKE EFFECT.
--- NOTE | 2021-09-02 17:05 | NUR ---
VETERINARY LABORATORY DIAGNOSTICIAN PAGED TO ER 10 FOR ABG DRAW. VETERINARY LABORATORY DIAGNOSTICIAN ATTEMPTED 3X S SUCCESS PER PT MUCH TOO COMBATIVE. PT WAS ACTIVELY ATTEMPTING TO INFLICT HARM UPON STAFF, AND FURTHER ABG ATTEMPT AT THIS TIME WOULD BE DETREMENTAL TO PATIENT AND TO STAFF. RN IN ROOM C VETERINARY LABORATORY DIAGNOSTICIAN DURING THIS TIME. AWARE OF PT COMBATIVENESS.
--- NOTE | 2021-09-02 17:05 | NUR ---
PT REMAINS PULLING OFF MONITER LEADS, UNABLE TO OBTAIN BLOOD PRESSURE. SEVERAL STAFF MEMBERS HELPING TO KEEP PT IN BED.
--- NOTE | 2021-09-02 18:17 | NUR ---
SON AT BEDSIDE , PT IS CALMING DOWN WITH HIM THERE, WAS ABLE TO OBTAIN BLOOD PRESSURE , 145/88,
--- NOTE | 2021-09-02 18:53 | NUR ---
REPORT GIVEN TO KAMAR SORIANO FOR CONTINUED CARE
--- NOTE | 2021-09-02 19:15 | NUR ---
PT TRANSPORTED TO MED SURG VIA STRETCHER, ICU STAFF PRESENT ON PT ARRIVAL TO UNIT, ALL BELONGINGS WITH PATIENT.
--- NOTE | 2021-09-02 19:27 | NUR ---
female pt received to ICU bed 8 via stretcher accompanied by Hector Yarbrough RN in stable condition; pt transferred to bed x4 max staff; admission assessment completed at this time; pt alert to person; speech very garbled/slow; deny pain but has facial grimaces with movement repositioning; able to follow verbal commands; no n/v noted at site; pt lungs coarse/ wheezing throughout; skin color wnl; o2 per nc at 2L; rotary derrick operator dry cough noted; hr irreg; wk pedal pulses; no edema noted; afib on monitor; abd soft with bs present; no bm noted per specifications writer; pt noted with scant urinary incontinence; pericare per staff; #20 flushed and patent to rac; no redness or edema noted at site; open 1cm area notedto right lat foot with dressing; removed/pic obtained; plan of care/meds explained; pt very anxious/restless; bed alarm set for pt safety; increased observation; call light within reach; will continue to monitor
--- NOTE | 2021-09-02 20:00 | NUR ---
remains restless in bed; bed alarm set for pt safety; afib on monitor; iv intact; will continue to monitor
--- NOTE | 2021-09-02 20:50 | NUR ---
Dora Toure NP called per keno writer/runner; updated on garbled speech, vital signs and inability to accurately assess NIH/neuro status due to meds received (ativan, haldol, zyprexa); stroke orders/ orders to be placed per WINDOWS SECURITY ANALYST; will continue to monitor
[2021-09-02 21:42] LABS: AMYLASE 469 u/l (30-110)
--- NOTE | 2021-09-02 21:51 | NUR ---
director underwriter sales at bedside; pt awakened for meds; able to administer diltiazem with applesauce; pt them refused the rest of the meds; call light within reach; will continue to monitor
[2021-09-02 21:59] LABS: LIPASE 2739 u/l (23-300)
[2021-09-03] VITALS (19 sets, daily range): BP systolic 88–193; BP diastolic 57–112
--- NOTE | 2021-09-03 00:14 | NUR ---
awake in bed; very restless; lab obtained per proposal writer; o2 per nc; bed alarm active for pt safety; po fluids offered and declined; will continue to monitor
--- NOTE | 2021-09-03 02:07 | NUR ---
resting in bed with eyes closed; intermittent yelling out and restlessness; iv intact; afib on monitor; will continue to monitor
--- NOTE | 2021-09-03 04:04 | NUR ---
awake in bed; restless; conversing with self; iv intact; pericare per staff; repositioned; will continue to monitor
--- NOTE | 2021-09-03 04:40 | NUR ---
pericare provided per staff for urinary incont; pt noted having a bm; lg bloody stool with many clots noted; specimen obtained; brief placed; will continue to monitor closely
--- NOTE | 2021-09-03 06:12 | NUR ---
pt restless.anxious; no apparent distress noted; o2 per nc; iv intact; bed alarm set for pt safety; call light within reach
[2021-09-03 06:33] LABS: MAGNESIUM 2.3 mg/dL (1.6-2.3)
--- NOTE | 2021-09-03 07:00 | NUR ---
BSSR RECEIVED FROM SAMMIE GALVIN. PT RESTING SEMI-FOWLERS WITH BED ALARM ON. PT VSS. EYES CLOSED, DOES NOT APPEAR TO BE IN ANY TYPE OF DISTRESS. WILL CONTINUE TO MONITOR CLOSELY.
[2021-09-03 07:14] LABS: ALBUMIN 3.9 g/dL (3.2-5.0); ALKALINE PHOSPHATASE 325 u/l (38-126); ANION GAP 9 (6-22 (CALC)); BILIRUBIN, TOTAL 0.9 mg/dL (0.0-1.4); BUN 15 mg/dL (8-23); BUN/CREATININE RATIO 25 (12-20 (CALC)); CARBON DIOXIDE 30 mmol/l (22-30); CHLORIDE 104 mmol/l (95-108); CREATININE 0.6 mg/dL (0.5-1.0); GFR > 60 ML/MIN (>=60 (CALC)); GFR FOR AFR.AMER. > 60 ML/MIN (>=60 (CALC)); POTASSIUM 4.2 mmol/l (3.5-5.1); SGOT/AST 393 u/l (9-36); SODIUM 139 mmol/l (137-146); TOTAL PROTEIN 7.5 g/dL (6.3-8.2)
--- NOTE | 2021-09-03 09:45 | NUR ---
PT OFF THE FLOOR AT THIS TIME WITH THE ASSISTANCE OF OT/ST FOR VIDEO SWALLOW. PT STABLE AT TIME OF DEPARTURE.
--- NOTE | 2021-09-03 10:20 | NUR ---
PT ARRIVED BACK FROM SPEECH THERAPY EVALUATION IN STABLE CONDITION. SLID FROM STRETCHER TO BED VIA 4 PERSON ASSISTANCE, VSS. BED ALARM APPLIED. IV PATENT. WILL CONTINUE TO MONITOR CLOSELY.
[2021-09-03 12:27] LABS: HEMATOCRIT 36.9 % (37.0-47.0); HEMOGLOBIN 11.1 g/dl (12.0-16.0)
--- NOTE | 2021-09-03 13:10 | NUR ---
NOTIFIED OF PT'S BLOOD COLORED BM. VSS, PT DEMANDING TO GET OOB AND USE BSC. ASSISTED WITH TWO PERSON ASSISTANCE. GAIT IS WEAK, AND UNSTEADY, HOWEVER HAS STRENGTH TO HOLD BODY WEIGHT UP. PT SAFELY PLACED BACK TO BED, WITH BED ALARM APPLIED. WILL AWAIT FURTHER ORDERS FROM PHYSICIAN.
--- NOTE | 2021-09-03 15:17 | NUR ---
PT attempted to carry out an initial evaluation for this patient today, but patient was very sluggish and sleepy and is affecting patient participation during evaluation. PT will attempt to evaluate patient again tomorrow.
[2021-09-03 18:24] LABS: HEMATOCRIT 35.1 % (37.0-47.0); HEMOGLOBIN 10.7 g/dl (12.0-16.0)
--- NOTE | 2021-09-03 19:10 | NUR ---
pt awake in bed; no apparent distress noted; pt offers no complaints; assessment completed at this time; pt alert and oriented; admits to pain to left shoulder; will medicate; no n/v noted; speech garbled but baseline; resp even and unlabored; lungs clear with faint exp wheeze to upper anterior; skin color wnl; o2 per nc at 2L; stable helper dry cough noted; hr irreg; strong pulses; no edema noted; bilat suzanne hose intact; abd soft with bs present; bm noted per today; no urine to inspect at this time; brief cdi; bsc present; #22 saline locked to rw; no redness or edema noted at site; plan of care/ meds/ labs explained; possible need for blood transfusion explained; call light within reach; pt able to move all extremities well and follow commands; will continue to monitor; bed alarm active for pt safety;
--- NOTE | 2021-09-03 20:25 | NUR ---
awake in bed; no distress noted; iv intact; call light within reach; will continue to monitor
--- NOTE | 2021-09-03 22:11 | NUR ---
resting in bed with eyes closed; easily aroused; offers no complaints; denies left shoulder pain at this time; afib on monitor; will continue to monitor
[2021-09-04] VITALS (16 sets, daily range): BP systolic 102–183; BP diastolic 56–112
--- NOTE | 2021-09-04 00:10 | NUR ---
pt resting in bed with eyes closed; easily aroused; offers no complaints; iv intact; no changes in neuro status; afib on monitor; call light within reach; will continue to monitor
[2021-09-04 00:32] LABS: HEMATOCRIT 33.1 % (37.0-47.0)
--- NOTE | 2021-09-04 02:07 | NUR ---
resting in bed with eyes closed; afib on monitor; iv intact; will continue to monitor
--- NOTE | 2021-09-04 04:05 | NUR ---
resting in bed with eyes closed; easily aroused; offers no complaints; afib on monitor; pt assisted to bsc; pericare per staff; pt with lg clotty/bloody bm; voiding yellow urine; iv intact and saline locked; no changes in neuro status; bed alarm set for pt safety; call light within;
[2021-09-04 06:09] LABS: HEMATOCRIT 35.2 % (37.0-47.0); HEMOGLOBIN 10.5 g/dl (12.0-16.0)
--- NOTE | 2021-09-04 06:13 | NUR ---
awake in bed; offers no complaints; pt requesting something to drink; mpo status/swallow exam explained; afib on monitor; brief cdi; call light within reach
--- NOTE | 2021-09-04 07:13 | NUR ---
weaned to ra. pt rosanne well. left nc on pt, attached to flowmeter, flowmeter not turned on as per pt sleeping. neb therapy admin at this time as well. pt rosanne well. superintendent fish hatchery to monitor.
--- NOTE | 2021-09-04 12:11 | NUR ---
pt rosanne well at this time. nad. vss. pt in good spirits and joking c sand polisher.
--- NOTE | 2021-09-04 13:00 | NUR ---
FAMILY IN AT BS, PLAN OF CARE DISCUSSED. STATES UNDERSTANDING. PT REMAINS ALERT AND ORIENTATED, NO CHANGE IN MENTATION AT THIS TIME.
[2021-09-04 15:26] LABS: HEMATOCRIT 31.3 % (37.0-47.0); HEMOGLOBIN 9.5 g/dl (12.0-16.0)
--- NOTE | 2021-09-04 16:09 | NUR ---
pt rosanne neb therapy well at this time. in good spirits, joking and talking casually c waste management specialist. nad. vss. waste management specialist to monitor.
--- NOTE | 2021-09-04 19:25 | NUR ---
pt awake in bed; very anxious; no apparent distress noted; assessment completed at this time; pt alert to person and place; asking for staff to "call the train so I can go home"; no n/v noted; pt admits to pain to left shoulder; will medicate; resp even and unlabored; lungs clear/ diminished bases; skin color wnl; o2 per nc intact; hr irreg; strong pulses; no edema noted; afib on monitor; bilat suzanne hose intact; abd soft with bs present; bloody stools reported per am shift; no urine to inspect at this time; bsc; brief cdi; #22 patent to rw with ivf infusing without complication; no redness or edema noted at site; open area to right lat foot; no changes in neuro status; pt cooperative and able to follow all commands; plan of care/ meds explained; bed alarm seyt for pt safety; call light within reach; will continue to monitor
--- NOTE | 2021-09-04 20:20 | NUR ---
awake in bed; no distress noted; iv intact and patent; will continue to monitor
--- NOTE | 2021-09-04 20:40 | NUR ---
pm meds explained and administered; pt tolerated well; iv intact and patent; protonix gtt continues; o2 per nc; bed alarm set for pt safety; will continue to monitor
--- NOTE | 2021-09-04 21:57 | NUR ---
pt resting in bed with eyes closed; afib on monitor; iv intact and patent; o2 per nc; call light within reach; will continue to monitor
[2021-09-05] VITALS (9 sets, daily range): BP systolic 97–192; BP diastolic 60–80
--- NOTE | 2021-09-05 | NUR ---
awake; bed alarm sounding; pt attempting to get out of bed per self; assisted to bsc; afib on monitor; pt has removed o2/ reapplied; confusion noted; increased visual observation for pt safety; bed alarm set; will continue to monitor
--- NOTE | 2021-09-05 01:17 | NUR ---
bed alarm sounding; pt attempting to get out of bed per self; declined toileting; will continue to monitor
--- NOTE | 2021-09-05 02:00 | NUR ---
bed alarm sounding; pt attempting to get out of bed; easily reoriented; cooperative with care; declined toileting; afib on monitor; assisted with repositioning for comfort; will continue to monitor
--- NOTE | 2021-09-05 02:42 | NUR ---
bed alarm sounding; assisted to bsc;
--- NOTE | 2021-09-05 04:03 | NUR ---
awake in bed; offers no complaints; iv intact and patent; afib on monitor; o2 per nc; bed alarm for pt safety; call light within reach; will continue to monitor
--- NOTE | 2021-09-05 04:11 | NUR ---
bed alarm sounding; up to bsc per staff
--- NOTE | 2021-09-05 06:06 | NUR ---
awake sitting on the side of the bed; incresaed visual observation for pt safety; afib on monitor; iv intact; call light within reach
--- NOTE | 2021-09-05 07:00 | NUR ---
BSSR RECEIVED FROM SAMMIE AGLVIN. PT AWAKE ALERT AND MORNING ADL'S BEING PREFORMED WITH PATIENT CROP AND SOIL SCIENTIST. PT IS ALERT BUT DISORIENTATED AND MILDLY AGGITATED. PT RE-ORIENTATED, SITTING AT SIDE OF BED, REQUESTING COFFEE. VSS, BED ALARM ON, INSTRUCTED PT TO CALL BEFORE GETTING OUT OF BED. WILL MONITOR CLOSELY.
[2021-09-05 08:28] LABS: HEMATOCRIT 34.5 % (37.0-47.0); HEMOGLOBIN 10.3 g/dl (12.0-16.0); IMMATURE GRANULOCYTES 0.1 % (0.0-5.0); MEAN CELL VOLUME 93.2 fL CALC (80.0-100.0); MEAN CORPUSCULAR HGB 27.8 pG CALC (26.0-32.0); MEAN CORPUSCULAR HGB CONC 29.9 g/dL CAL (32.0-36.0); NEUT# 5.77 thou/uL (2.00-7.15); RED BLOOD COUNT 3.7 mill/uL (4.20-5.60); RED CELL DISTRI WIDTH 15.2 % (11.5-15.5)
[2021-09-05 08:45] LABS: ANION GAP 13 (6-22 (CALC)); BUN 18 mg/dL (8-23); BUN/CREATININE RATIO 31 (12-20 (CALC)); CHLORIDE 110 mmol/l (95-108); CREATININE 0.6 mg/dL (0.5-1.0); GFR > 60 ML/MIN (>=60 (CALC)); GFR FOR AFR.AMER. > 60 ML/MIN (>=60 (CALC)); POTASSIUM 4.3 mmol/l (3.5-5.1); SODIUM 140 mmol/l (137-146)
[2021-09-05 08:48] LABS: CARBON DIOXIDE 21 mmol/l (22-30)
--- NOTE | 2021-09-05 09:30 | NUR ---
AT BS FOR EVALUATION AT THIS TIME. PT AWAKE ALERT AND APPROPRIATE, ORDERS TO TRANSFER TO MED-SURG GIVEN. PT STATES UNDERSTANDING, WILL CONTINUE TO RE-ORIENT NEEDED
--- NOTE | 2021-09-05 13:30 | NUR ---
PATIENT RECEIVED FROM ICU AND REPORT GIVEN TO THIS NURSE BY JOYCE COCHRAN. PATIENT ALERT AND IS PLEASANTLY CONFUSED AT THIS TIME BUT IS REDIRECTABLE. PATIENT BED ALARM ON AND SIDERAILS UP X 3 PATIENT CALL LIGHT IN HAND AT THIS TIME PATIENT ON TELE MONITOR AND WILL BE MONITORED BY ED. WILL CONTINUE TO MONITOR PATIENT. PATIENT DOES HAVE BELS PALSY AND THIS IS NOTED ON LEFT SIDE OF FACE.
--- NOTE | 2021-09-05 13:32 | NUR ---
PT TRANSFERRED VIA WHEELCHAIR TO M/S IN STABLE CONDITION. REPORT GIVEN TO SAMMIE SOSA.
--- NOTE | 2021-09-05 16:03 | NUR ---
PATIENT ALERT TO NAME AND PLACE IS CONFUSED TO TIME AND DATE AND CONTINUES TO BE REMINDED TO STAY IN BED. PATIENTS BED ALARM IS ENGAGED AT THIS TIME. SIDERAILS ARE UP X 3 02 REMAINS ON AT 2L N/C. TELE MONITOR ON WILL CONTINUE TO MONITOR.
--- NOTE | 2021-09-05 19:25 | NUR ---
PATIENT ALERT WITH CONFUSION. RESPONDS TO HER NAME. ATTEMPTS TO GET OUT OF HER BED. REDIRECTION NEEDED. BED ALARM ON AND SOUNDING. ASSESSMENT COMPLETE. IV INFUSING WITHOUT DIFFICULTY. PATIENT OBSERVED PULLING AT HER TELE LEADS. REDIRECTED ON LEAVING THEM IN PLACE. BED LOCKED AND IN LOWEST POSITION. BED ALARM ON. CALL LIGHT AND BELONGINGS WITHIN REACH.
--- NOTE | 2021-09-05 21:07 | NUR ---
CALLED AND SPOKE WITH RETINA SUBSPECIALIST DOCTOR ABOUT PATIENTS AGGITATION, PULLING AT HER LINES AND TELE LEADS. PATIENT KEEPS ATTEMPTING TO GET OUT OF BED WITH BED ALARM SOUNDING. FREQUENT REDIRECTING NEEDED. SEE NEW ORDER.
--- NOTE | 2021-09-05 22:00 | NUR ---
PATIENT OBSERVED SITTING ON SIDE OF BED ATTEMPTING TO GET OUT. REDIRECTING PROVIDED.
--- NOTE | 2021-09-05 22:42 | NUR ---
PATIENT BED ALARM WAS SOUNDING. PATIENT ASSISTED TO BEDSIDE COMMODE WITH RESOURCE PARAPROFESSIONAL PRESENT. PATIENT VOIDED, HEATHER CARE PROVIDED AND PATIENT ASSISTED BACK TO BED. BED ALARM REMAINS ACTIVE.
[2021-09-06] VITALS (7 sets, daily range): BP systolic 100–184; BP diastolic 54–98
--- NOTE | 2021-09-06 00:13 | NUR ---
CALL OUT TO CARPENTERS RELATED TO PATIENTS INCREASED AGITATION. ALSO RECEIVED ORDERS TO HOLD IVF AND PROTONIX DRIP UNTIL NEW LINE CAN BE ESTABLISHED. CLARIFICATION ORDER ON APRESOLINE WELL.
--- NOTE | 2021-09-06 00:43 | NUR ---
PATIENT WITH INCREASED AGITATION. PULLING AT TELE MONITOR CORDS AND TOSSING THINGS ON THE FLOOR. REDIRECTED BY STAFF. ATIVAN 0.5MG IM GIVEN X1 PER MD ORDERS. MANAGER AGENCY IN ROOM SITTING WITH PATIENT AT THIS TIME.
--- NOTE | 2021-09-06 01:56 | NUR ---
PATIENT KEEPS TAKING TELE LEADS OFF AND DISCONNECTING TELE BOX. REDIRECTION PROVIDED. ER AWARE OF PATIENT TAKING OFF LEADS.
--- NOTE | 2021-09-06 02:10 | NUR ---
TELE BACK ON PATIENT WITH NEW LEADS. INFORMED ED.
--- NOTE | 2021-09-06 04:00 | NUR ---
PATIENT JUST GOT BLOOD DRAWN BY LAB. TOLERATED WELL. PATIENT LAYING IN BED MOVING EXTREMITIES AROUND PUTTING LEGS OFF THE BED. REPOSITIONED PATIENTS LEGS BACK ON THE BED FOR COMFORT AND SAFETY PURPOSES. BED REMAINS IN LOWEST POSITION AND WHEELS LOCKED. CALL LIGHT WITHIN REACH. BED ALARM REMAINS ON.
[2021-09-06 05:09] LABS: HEMATOCRIT 28.7 % (37.0-47.0); HEMOGLOBIN 8.8 g/dl (12.0-16.0); IMMATURE GRANULOCYTES 0.2 % (0.0-5.0); MEAN CELL VOLUME 91.1 fL CALC (80.0-100.0); MEAN CORPUSCULAR HGB 27.9 pG CALC (26.0-32.0); MEAN CORPUSCULAR HGB CONC 30.7 g/dL CAL (32.0-36.0); NEUT# 4.33 thou/uL (2.00-7.15); RED BLOOD COUNT 3.15 mill/uL (4.20-5.60); RED CELL DISTRI WIDTH 15.4 % (11.5-15.5)
[2021-09-06 05:56] LABS: HEMOGLOBIN 8.9 g/dl (12.0-16.0); IMMATURE GRANULOCYTES 0.2 % (0.0-5.0); MEAN CELL VOLUME 91.5 fL CALC (80.0-100.0); MEAN CORPUSCULAR HGB 28.1 pG CALC (26.0-32.0); MEAN CORPUSCULAR HGB CONC 30.7 g/dL CAL (32.0-36.0); NEUT# 4.37 thou/uL (2.00-7.15); RED BLOOD COUNT 3.17 mill/uL (4.20-5.60); RED CELL DISTRI WIDTH 15.3 % (11.5-15.5)
--- NOTE | 2021-09-06 06:30 | NUR ---
IV SITE TO LEFT HAND REMOVED DUE TO IT NOT BEING PATENT. MD WAS MADE AWARE AT 0013 OF LINE NOT BEING PATENT. WILL RELAY TO ONCOMING NURSE.
[2021-09-06 06:31] LABS: ANION GAP 9 (6-22 (CALC)); BUN 10 mg/dL (8-23); BUN/CREATININE RATIO 18 (12-20 (CALC)); CARBON DIOXIDE 25 mmol/l (22-30); CHLORIDE 111 mmol/l (95-108); CREATININE 0.6 mg/dL (0.5-1.0); GFR > 60 ML/MIN (>=60 (CALC)); GFR FOR AFR.AMER. > 60 ML/MIN (>=60 (CALC)); POTASSIUM 4.2 mmol/l (3.5-5.1); SODIUM 141 mmol/l (137-146)
--- NOTE | 2021-09-06 07:00 | NUR ---
BEDSIDE REPORT RECEIVED FROM [place]T. PT ALERT BUT CONFUSED. PT HAS NO IV SITE, MD AWARE. ASSESSMENT PERFORMED. NO DISTRESS NOTED AT THIS TIME. WILL CONTINUE TO MONITOR.
--- NOTE | 2021-09-06 09:26 | NUR ---
DISCUSSED STATUS OF PT NOT HAVING IV AT THIS TIME, PT WAS RECEIVING PROTONIX DRIP, NOW ON HOLD. Dora PATRICK CONSIDERING SWICHTING TO PO BUT WOULD LIKE TO AWAIT MD. PT ASLEEP AT THIS TIME, WILL CONTINUE TO MONITOR.
--- NOTE | 2021-09-06 10:59 | NUR ---
IV STARTED LEFT HAND BY Janet JACQUES X [address] LERMA AWARE PT WILL NOT AWAKEN TO TAKE PO MEDICATIONS. IV MEDICATIONS GIVEN. SEE EMAR. WILL CONTOINUE TO MONITOR.
--- NOTE | 2021-09-06 11:31 | NUR ---
MD INSTRUCTED TURN PT O2 TO 1LPM AND RECHECK 02 SAT IN 30 MIN. CURRENTLY PT ON 2 LPM. O2 SAT AT 0700 95%.
--- NOTE | 2021-09-06 15:51 | NUR ---
PT UP TO CHAIR, ASLEEP. VITALS RECHECKED. PT 02 SAT 95% ON RA. 100/54, HR 93. NO COMPALINTS WILL CONTINUE TO MONITOR.
--- NOTE | 2021-09-06 16:38 | NUR ---
SYD TRANSFERRED INTO RECLINER WITH MOD A TO COMPLETE STAND-PIVOT TRANSFER. SYD COMPLETED SUPINE --> SIT WITH MIN A AND REQUIRED REST BREAK TO PREVENT DIZZINESS.
--- NOTE | 2021-09-06 17:00 | NUR ---
PT SITTING UP IN CHAIR. PT AROUSABLE TO SPEECH. SPEECH SEEMS CLEARER THAN THIS AM. WILL CONTINUE TO MONITOR. NO COMPLAINTS/ DISTRESS AT THIS TIME.
--- NOTE | 2021-09-06 20:00 | NUR ---
PATIENT IS AWAKE AND ALERT TO SELF. SPEECH GARBLED. ON TELEMETRY AFIB. RESPIRATIONS EVEN AND UNLABORED. VAD #24 LH S/L WITH DRESSING CDI. ASSESSMENT COMPLETED AND CHARTED. BED IN LOW POSTION. CALL LIGHT WITHIN REACH. BED ALARM ACTIVE, FALL PRECAUTIONS IN PLACE.
[2021-09-07] VITALS: BP 141/79
--- NOTE | 2021-09-07 | NUR ---
RESTING QUIETLY. NO COMPLAINTS.
[2021-09-07 04:00] VITALS: BP 132/66
[2021-09-07 04:50] LABS: HEMATOCRIT 29.8 % (37.0-47.0); HEMOGLOBIN 9.1 g/dl (12.0-16.0); MEAN CELL VOLUME 91.1 fL CALC (80.0-100.0); MEAN CORPUSCULAR HGB 27.8 pG CALC (26.0-32.0); MEAN CORPUSCULAR HGB CONC 30.5 g/dL CAL (32.0-36.0); RED BLOOD COUNT 3.27 mill/uL (4.20-5.60); RED CELL DISTRI WIDTH 15.2 % (11.5-15.5)
--- NOTE | 2021-09-07 04:59 | NUR ---
PATIENT UP TO BEDSIDE COMMODE UNASSISTED. BED ALARM ACTIVATED. ASSISTED BACK TO BED. ALARM ACTIVATED. BED IN LOW POSITION. CALL LIGHT WITHIN REACH.
[2021-09-07 05:06] LABS: ANION GAP 10 (6-22 (CALC)); BUN 9 mg/dL (8-23); BUN/CREATININE RATIO 15 (12-20 (CALC)); CARBON DIOXIDE 24 mmol/l (22-30); CHLORIDE 110 mmol/l (95-108); CREATININE 0.6 mg/dL (0.5-1.0); GFR > 60 ML/MIN (>=60 (CALC)); GFR FOR AFR.AMER. > 60 ML/MIN (>=60 (CALC)); MAGNESIUM 1.8 mg/dL (1.6-2.3); POTASSIUM 3.8 mmol/l (3.5-5.1); SODIUM 141 mmol/l (137-146)
--- NOTE | 2021-09-07 07:00 | NUR ---
REPORT RECEIVED FROM CRYSTALRN
--- NOTE | 2021-09-07 08:00 | NUR ---
PT RESTING IN SEMI FOWLERS POSITION,A&O TO PERSON AND PLACE;GARBLED SPEECH NOTED AND RIGHT SIDE FACIAL DROOP;PT DENIES ANY CURRENT PAIN OR DISCOMFORTS,PAIN SCALE AND REPORTING EDUCATED;RESPIRATIONS EVEN AND UNLABORED ON RA,CLEAR LUNG SOUNDS;ABDOMEN SOFT ON PALPATION AND ACTIVE IN ALL 4 QUADRANTS;STRONG PEDAL PULSES;SKIN INTACT;TELE MONITORING IN PLACE;#22G TO LH FLUSHED AND PATENT,SITE APPEARS HEALTHY;PT DENIES ANY ADDITIONAL NEEDS AND IS THIS TIME AND IS ENCOURAGED TO CALL FOR ASSISTANCE IF NEEDED;FALL PRECAUTIONS IN PLACE WITH BED IN THE LOWEST POSITION AND BED ALARM ON FOR SAFETY;CALL LIGHT IN REACH;WILL CONTINUE TO MONITOR
[2021-09-07 08:01] VITALS: BP 150/97
--- NOTE | 2021-09-07 09:40 | NUR ---
SPEECH THERAPY AT BEDSIDE WORKING WITH PT.
--- NOTE | 2021-09-07 10:00 | NUR ---
AND ERIC ANRP AT BEDSIDE DISCUSSING POC.
[2021-09-07] MEDS ORDERED: PROTONIX40 M2 PO (10:02)
[2021-09-07] MEDS ORDERED: PROTONIX40 MG PO (10:02)
--- NOTE | 2021-09-07 10:15 | NUR ---
PHYSICAL THERAPY AT BEDSIDE WORKING WITH PT.
[2021-09-07 11:03] VITALS: BP 124/51
--- NOTE | 2021-09-07 11:05 | NUR ---
PT APPEARS TO BE SLEEPING IN SEMI FOWLERS POSITION;RESPIRATIONS EVEN AND UNLABORED ON RA;NO S/S OF DISTRESS NOTED;TELE MONITORING IN PLACE;IV SITE PATENT;ALL SAFETY PRECAUTIONS REMAIN IN PLACE WITH BED IN THE LOWEST POSITION AND BED ALARM ON FOR SAFETY;PT TO BE TRANSFERRED TO [facility] AT APPROX 1400 BY REHAB STAFF MEMBERS;CALL LIGHT IN REACH;WILL CONTINUE TO MONITOR
--- NOTE | 2021-09-07 11:15 | NUR ---
REPORT CALLED TO DEBBIE AT [facility]
--- NOTE | 2021-09-07 12:43 | NUR ---
Pt was seen at bedside. She was received upright in bed and alert. Pt with moderately dysarthric speech. Prior to ST visit discussed providing solids to Pt with MD, as patient has been on clear liquids d/t a GI bleed. MD in agreement to trial solids. Patient given therapeutic PO trials of pureed solids, mechanical soft solids, and thin liquids Patient presented with a mildly prolonged oral transit time and multiple swallows per bolus presentation with pureed solids. She presented with an increased oral transit time, suspected delayed pharyngeal swallow, and multiple swallows with thin liquid trials. With soft solids, pt presented with an increased mastication time, mild lingual stasis, piecemeal deglutition, and multiple swallows per bolus presentation. Pt had no overt s/s of penetration/aspiration. At this time recommend mechanical soft solids and thin liquids. Aspiration precautions include: HOB upright for PO intake, small bites/sips, slow rate, alternate liquids and solids. DATA COORDINATOR to follow. Discussed with medical team.
--- NOTE | 2021-09-07 13:50 | NUR ---
IV SITE REMOVED WITH CATHETER INTACT AND TELE MONITORING D/C DUE TO DISCHARGE HOME.AWAITING R STAFF FOR TRANSPORTATION BACK TO [facility].CALL LIGHT IN REACH;WILL CONTINUE TO MONITOR
--- NOTE | 2021-09-07 14:19 | NUR ---
Discharge instructions given. Patient verbalizes understanding of same. Discharged in stable condition via Wheelchair to Home with *Other. All belongings sent with pt. PT TRANSPORTED TO [facility] IN STABLE CONDITION VIA ACCOMPANIED BY R STAFF MEMBER. ALL BELONGINGS LEFT WITH PT INCLUDING D/C INSTRUCTIONS.R STAFF MEMBER TP TRANSPORT BACK TO [facility].
== END 2021-09-07 14:19 | DRG 378 ==
LOC: ED 12:37 → ED-I 14:12 → ED 14:12 → ED-I 16:20 → ED 17:50 → ICU 17:51 → MS2 09-05 13:15
PROVIDERS: Family Medicine; Internal Medicine; Nurse Practitioner; ADMIT Internal Medicine; ATTEND Hospitalist
DX: K57.31 Diverticulosis of large intestine without perforation or abscess with bleeding (principal); I69.954 Hemiplegia and hemiparesis following unspecified cerebrovascular disease affecting left non-dominant side; J96.11 Chronic respiratory failure with hypoxia; G93.40 Encephalopathy, unspecified; R47.81 Slurred speech; I10 Essential (primary) hypertension; J43.9 Emphysema, unspecified; E78.5 Hyperlipidemia, unspecified; F03.90 Unspecified dementia, unspecified severity, without behavioral disturbance, psychotic disturbance, mood disturbance, and anxiety; F41.9 Anxiety disorder, unspecified; G51.0 Bell's palsy; R74.01 Elevation of levels of liver transaminase levels; I48.91 Unspecified atrial fibrillation; F32.A Depression, unspecified; E05.90 Thyrotoxicosis, unspecified without thyrotoxic crisis or storm; Z91.81 History of falling; Z96.89 Presence of other specified functional implants; Z20.822 Contact with and (suspected) exposure to COVID-19
CPT/HCPCS: G0328; G0378; J2060; Q9967; S0164; S0166

== ENCOUNTER 2021-10-25 23:29 | Emergency (ER) | payer MEDICARE, OTHER ==
[~2021-10-25] VITALS: Ht 152.4 cm; Wt 84.0 kg
[~2021-10-25 23:29] MED LIST changes: +PROTONIX40 M2 PO; +PROTONIX40 MG PO
[2021-10-26 00:04] LABS: HEMATOCRIT 35.2 % (37.0-47.0); HEMOGLOBIN 10.4 g/dl (12.0-16.0); IMMATURE GRANULOCYTES 0.2 % (0.0-5.0); MEAN CELL VOLUME 89.8 fL CALC (80.0-100.0); MEAN CORPUSCULAR HGB 26.5 pG CALC (26.0-32.0); MEAN CORPUSCULAR HGB CONC 29.5 g/dL CAL (32.0-36.0); NEUT# 4.36 thou/uL (2.00-7.15); RED BLOOD COUNT 3.92 mill/uL (4.20-5.60); RED CELL DISTRI WIDTH 16.1 % (11.5-15.5)
[2021-10-26 00:20] LABS: ALBUMIN 3.6 g/dL (3.2-5.0); ANION GAP 11 (6-22 (CALC)); BUN 21 mg/dL (8-23); BUN/CREATININE RATIO 30 (12-20 (CALC)); CARBON DIOXIDE 28 mmol/l (22-30); CHLORIDE 105 mmol/l (95-108); CREATININE 0.7 mg/dL (0.5-1.0); GFR > 60 ML/MIN (>=60 (CALC)); GFR FOR AFR.AMER. > 60 ML/MIN (>=60 (CALC)); SODIUM 140 mmol/l (137-146); TOTAL PROTEIN 7.4 g/dL (6.3-8.2)
[2021-10-26 00:31] LABS: ALKALINE PHOSPHATASE 117 u/l (38-126); BILIRUBIN, TOTAL 0.4 mg/dL (0.0-1.4); SGOT/AST 23 u/l (9-36)
[2021-10-26 00:38] LABS: ACT PARTIAL THROMBO TIME 24.5 SECONDS (20.0-32.5); PROTHROMBIN TIME 10.4 SECONDS (9.0-12.5)
[2021-10-26 03:15] VITALS: BP 168/74
== END 2021-10-26 03:15 | disposition home or self-care (01) ==
LOC: ED 23:29
DX: I12.9 Hypertensive chronic kidney disease with stage 1 through stage 4 chronic kidney disease, or unspecified chronic kidney disease (principal); N18.9 Chronic kidney disease, unspecified; I48.91 Unspecified atrial fibrillation; J96.11 Chronic respiratory failure with hypoxia; J43.9 Emphysema, unspecified; E78.5 Hyperlipidemia, unspecified; F03.90 Unspecified dementia, unspecified severity, without behavioral disturbance, psychotic disturbance, mood disturbance, and anxiety; K21.9 Gastro-esophageal reflux disease without esophagitis; F32.A Depression, unspecified; F41.9 Anxiety disorder, unspecified; Z86.73 Personal history of transient ischemic attack (TIA), and cerebral infarction without residual deficits

== ENCOUNTER 2022-04-04 20:23 | Emergency (ER) | payer MEDICARE, OTHER ==
[2022-04-04] VITALS (11 sets, daily range): BP systolic 107–185; BP diastolic 59–143
[~2022-04-04] VITALS: Ht 152.4 cm; Wt 75.0 kg
[2022-04-04 20:49] LABS: HEMATOCRIT 37.7 % (37.0-47.0); HEMOGLOBIN 11.3 g/dl (12.0-16.0); MEAN CELL VOLUME 94.7 fL CALC (80.0-100.0); MEAN CORPUSCULAR HGB 28.4 pG CALC (26.0-32.0); NEUT# 3.76 thou/uL (2.00-7.15); RED BLOOD COUNT 3.98 mill/uL (4.20-5.60); RED CELL DISTRI WIDTH 13.9 % (11.5-15.5)
[2022-04-04 21:19] LABS: ALBUMIN 3.7 g/dL (3.2-5.0); ALKALINE PHOSPHATASE 81 u/l (38-126); ANION GAP 11 (6-22 (CALC)); BUN 30 mg/dL (8-23); BUN/CREATININE RATIO 40 (12-20 (CALC)); CARBON DIOXIDE 31 mmol/l (22-30); CHLORIDE 104 mmol/l (95-108); CREATININE 0.7 mg/dL (0.5-1.0); GFR > 60 ML/MIN (>=60 (CALC)); GFR FOR AFR.AMER. > 60 ML/MIN (>=60 (CALC)); POTASSIUM 4.7 mmol/l (3.5-5.1); SGOT/AST 21 u/l (9-36); SODIUM 142 mmol/l (137-146); TOTAL PROTEIN 6.6 g/dL (6.3-8.2)
[2022-04-04 21:21] LABS: PROTHROMBIN TIME 10.9 SECONDS (9.0-12.5)
[2022-04-04 21:28] LABS: MYOGLOBIN 43 ng/mL (0 - 62)
[2022-04-04 21:31] LABS: BILIRUBIN, TOTAL 0.2 mg/dL (0.0-1.4)
[2022-04-04 23:49] LABS: URINE BILIRUBIN - DIPSTICK NEGATIVE (NEGATIVE); URINE BLOOD DIPSTICK NEGATIVE (NEGATIVE); URINE COLOR YELLOW; URINE GLUCOSE - DIPSTICK NEGATIVE (NEGATIVE); URINE KETONE TRACE mg/dL (NEGATIVE); URINE LEUK ESTERASE NEGATIVE (NEGATIVE); URINE PROTEIN - DIPSTICK 100 mg/dL (NEG-TRACE); URINE SPECIFIC GRAVITY >=1.030; URINE UROBILINOGEN - DIPSTICK 0.2 E.U./dL (0.2)
[2022-04-04 23:50] LABS: URINE NITRITE - DIPSTICK NEGATIVE (Negative)
[2022-04-05 00:01] VITALS: BP 152/64
[2022-04-05 00:18] LABS: URINE BACTERIA FEW hpf; URINE MUCUS FEW hpf (NONE-FEW); URINE RBC 0-2 RBC/hpf (0-5); URINE SQUAMOUS EPITHELIAL CELL FEW EPI/hpf (0-FEW)
[2022-04-05 00:31] VITALS: BP 153/134
[2022-04-05 00:37] VITALS: BP 153/134
== END 2022-04-05 01:11 | disposition home or self-care (01) ==
LOC: ED 20:23
PROVIDERS: Family Medicine
DX: I48.20 Chronic atrial fibrillation, unspecified (principal); J96.12 Chronic respiratory failure with hypercapnia; J96.11 Chronic respiratory failure with hypoxia; I12.9 Hypertensive chronic kidney disease with stage 1 through stage 4 chronic kidney disease, or unspecified chronic kidney disease; N18.9 Chronic kidney disease, unspecified; J43.9 Emphysema, unspecified; G51.0 Bell's palsy; E78.5 Hyperlipidemia, unspecified; F03.90 Unspecified dementia, unspecified severity, without behavioral disturbance, psychotic disturbance, mood disturbance, and anxiety; F32.A Depression, unspecified; Z86.73 Personal history of transient ischemic attack (TIA), and cerebral infarction without residual deficits
CPT/HCPCS: J2060

== ENCOUNTER 2022-11-13 05:40 | Inpatient (IN) | payer MEDICARE, OTHER ==
[2022-11-13] VITALS (24 sets, daily range): BP systolic 128–209; BP diastolic 61–128
[~2022-11-13] VITALS: Ht 152.4 cm; Wt 71.0 kg
--- NOTE | 2022-11-13 05:40 | NUR ---
PT TO ROOM 10 VIA EMS
[2022-11-13 06:10] LABS: HEMATOCRIT 38.1 % (37.0-47.0); HEMOGLOBIN 11.8 g/dl (12.0-16.0); IMMATURE GRANULOCYTES 0.8 % (0.0-5.0); MEAN CELL VOLUME 95.3 fL CALC (80.0-100.0); MEAN CORPUSCULAR HGB 29.5 pG CALC (26.0-32.0); NEUT# 5.66 thou/uL (2.00-7.15); RED CELL DISTRI WIDTH 13.8 % (11.5-15.5)
[2022-11-13] MEDS ORDERED: CLONIDINE0.1 MG PO (06:17)
[2022-11-13] MEDS ORDERED: FERROUS SULF325 M3 PO (06:18)
[2022-11-13] MEDS ORDERED: METHIMAZOLE5 MG PO (06:20)
[2022-11-13] MEDS ORDERED: OMEPRAZOLE DR40 MG (06:22)
[2022-11-13 06:23] LABS: D-DIMER 1.23 mg/L (0.19-0.60)
[2022-11-13] MEDS ORDERED: PROAIR HFA IN (06:23)
[2022-11-13] MEDS ORDERED: PAROXETINE10 M1 (06:23)
[2022-11-13 06:42] LABS: INTERNATIONAL NORMALIZED RATIO 1.1 RATIO (0.7-1.3); PROTHROMBIN TIME 11.1 SECONDS (9.0-12.5)
[2022-11-13 06:44] LABS: ALBUMIN 4.2 g/dL (3.2-5.0); ALKALINE PHOSPHATASE 120 u/l (38-126); ANION GAP 10 (6-22 (CALC)); BUN 19 mg/dL (8-23); BUN/CREATININE RATIO 38 (12-20 (CALC)); CARBON DIOXIDE 34 mmol/l (22-30); CHLORIDE 103 mmol/l (95-108); CREATININE 0.5 mg/dL (0.5-1.0); GFR FOR AFR.AMER. > 60 ML/MIN (>=60 (CALC)); GFR OTHER RACES > 60 ML/MIN (>=60 (CALC)); POTASSIUM 4.5 mmol/l (3.5-5.1); SGOT/AST 31 u/l (9-36); SODIUM 143 mmol/l (137-146)
[2022-11-13 06:45] LABS: BILIRUBIN, TOTAL 0.7 mg/dL (0.0-1.4)
--- NOTE | 2022-11-13 07:05 | NUR ---
Reassessment of patient completed. No distress noted.
--- NOTE | 2022-11-13 08:10 | NUR ---
Reassessment of patient completed. No distress noted.
--- NOTE | 2022-11-13 09:11 | NUR ---
Reassessment of patient completed. No distress noted.
--- NOTE | 2022-11-13 10:05 | NUR ---
Reassessment of patient completed. No distress noted.
--- NOTE | 2022-11-13 12:06 | NUR ---
Admission Note Report Given to: NATHANIEL COCHRAN Transported by: Stretcher Transported with: Nurse YULI Patent IV O2 @ 4l/MIN VIA NC Line Department Supervisor Location: ICU MS2 ROOM 271
--- NOTE | 2022-11-13 12:31 | NUR ---
PT ARRIVED ON UNIT @ 1145, BEDSIDE REPORT RECEIVED, PT SLEEPING, DIFFICULTY TO BE AWAKENED AND ONLY RESPONDS WITH GROANS THEN FALLS INTO DEEP SLEEP AGAIN. O2 IN PLACE @ 3.5L VIA NC, TELE MONITOR IN PLACE, BED LOCKED IN LOWEST POSITION WITH ALARM ACTIVATED, WILL CONTINUE TO MONITOR.
--- NOTE | 2022-11-13 18:41 | NUR ---
MORE AWAKE AT THIS TIME WITH GARBLED SPEECH, ORIENTED TO PERSON AND PLACE,CALL CLARKE IN REACH
--- NOTE | 2022-11-13 19:00 | NUR ---
AT 1900 PT C/O BEING CLOSTERPHOBIC AND WANTING SOMETHING FOR HIS CONDITION, HE BECAME TEARY EYED STATING HE HAS BEEN IN THIS ROOM TOO LONG AND NO ONE KNOWS HOW HE FEELS, HE WAS OFFERED MORPHINE AND CALMED DOWN AFTER A WHILE, NIGHT NURSE WILL CONTINUE TO MONITOR.
--- NOTE | 2022-11-13 19:00 | NUR ---
BEDSIDE SHIFT REPORT COMPLETE. PATIENT RESTING QUIETLY IN BED.
--- NOTE | 2022-11-13 22:07 | NUR ---
ASSESSMENT COMPLETE. PATIENT RESTING QUIETLY EYES CLOSED, EASILY AROUSED. ALERT AND ORIENTED TO SELF; SPEECH GARBLED. NON-VERBAL BEHAVIOR DOES NOT EXPRESS PAIN. NO DISTRESS NOTED AT THIS TIME. CALL LIGHT WITHIN REACH. BED ALARM ACTIVATED.
[2022-11-14] VITALS (9 sets, daily range): BP systolic 146–183; BP diastolic 61–91
--- NOTE | 2022-11-14 01:04 | NUR ---
PATIENT RESTING EYES CLOSED. NO DISTRESS NOTED. BED IN LOW POSITION, LOCKED, ALARM ACTIVATED.
--- NOTE | 2022-11-14 07:00 | NUR ---
RECEIVE REPORT FROM RESHMA COCHRAN.
--- NOTE | 2022-11-14 08:00 | NUR ---
PATIENT ALERT AND ORIENTED X3. RESTING STABLE IN BED AT THIS TIME. ASSESSMENTE HEAD-TO TOE COMPLETE. PATIENT IS EDUCATED ABOUD MEDICATIONS, PAIN MANAGEMENT AND NURSING PLAN FOR TODAY. PATIENT REFER UNSERSTAND. SAFETY AND FALL PRECAUTIONS IN PLACE. CALL LIGHT WITHIN IN REACH. BEFORE HE LEFT OR THE
--- NOTE | 2022-11-14 12:28 | NUR ---
PT RESTING IN BED. STATES NO PAIN. TELE MONITOR IN PLACE. CONTINOUS MONITORING FALL/SAFTEY PRECAUTION IN PLACE, CALL LIGHT WITHIN REACH.
--- NOTE | 2022-11-14 16:46 | NUR ---
Pt in bed watching tv. A&O x 3. Lung sounds clear and unlabored breathing. Tylenol given for fever later re-assess pt states fever came down. Will continue to monitor. bed alarm on for fall precautions.
--- NOTE | 2022-11-14 19:19 | NUR ---
BEDSIDE SHIFT REPORT COMPLETE. PATIENT RESTING QUIETLY. CALL LIGHT WITHIN REACH.
--- NOTE | 2022-11-14 19:44 | NUR ---
notified nurse kathy about pts bp of 177/87 @191
--- NOTE | 2022-11-14 20:07 | NUR ---
ASSESSMENT COMPLETE. PATIENT RESTING QUIETLY, DENIES PAIN AT THIS TIME. NEW IV ACCESS RIGHT FOREARM, HYDRALZINE GIVEN FOR ELEVATED BP. PATIENT STABLE NO DISTRESS NOTED. BED IN LOW POSITION, ALARM ACTIVATED. CALL LIGHT WITHIN REACH.
[2022-11-15] VITALS: BP 185/80
[2022-11-15 00:03] VITALS: BP 176/85; BP 185/80
--- NOTE | 2022-11-15 00:30 | NUR ---
PATIENT RESTING, EYES CLOSED. INCONTINENT X1, HEATHER CARE PROVIDED. DENIES PAIN AT THIS TIME. CALL LIGHT WITHIN REACH, BED ALARM ACTIVATED.
--- NOTE | 2022-11-15 00:33 | NUR ---
notified nurse kathy about pts bp of 185/80 @0002
[2022-11-15 03:58] VITALS: BP 184/85
--- NOTE | 2022-11-15 04:41 | NUR ---
PATIENT HAD EPISODE OF CONFUSION AND HALLUCINATION; REDIRECTION SUCCESSFUL. PATIENT INCONTINENT OF URINE, BRIEF CHANGED AND HEATHER CARE PROVIDED. PATIENT DENIES PAIN, NO DISTRESS NOTED. ASSISTED BACK TO BED, ALARM ACTIVATED.
[2022-11-15 05:19] LABS: HEMOGLOBIN 11.3 g/dl (12.0-16.0); MEAN CELL VOLUME 95.5 fL CALC (80.0-100.0); MEAN CORPUSCULAR HGB CONC 31.4 g/dL CAL (32.0-36.0); RED BLOOD COUNT 3.77 mill/uL (4.20-5.60); RED CELL DISTRI WIDTH 14.1 % (11.5-15.5)
[2022-11-15 05:27] LABS: ANION GAP 11 (6-22 (CALC)); BUN 22 mg/dL (8-23); BUN/CREATININE RATIO 40 (12-20 (CALC)); CARBON DIOXIDE 35 mmol/l (22-30); CHLORIDE 103 mmol/l (95-108); CREATININE 0.6 mg/dL (0.5-1.0); GFR FOR AFR.AMER. > 60 ML/MIN (>=60 (CALC)); GFR OTHER RACES > 60 ML/MIN (>=60 (CALC)); MAGNESIUM 2.2 mg/dL (1.6-2.3); POTASSIUM 4.4 mmol/l (3.5-5.1); SODIUM 145 mmol/l (137-146)
[2022-11-15 06:31] VITALS: BP 171/77
--- NOTE | 2022-11-15 08:04 | NUR ---
ASSESSMENT COMPLETE PT STATES NO PAIN. REORINTATED PT TO ROOM AND CALL CLARKE. O2 IN PLACE, VIA NC. @2L STATING 97% UPDATED PT ON CURREN TPLAN OF CARE. TELE MONITOR INPLACE, CONTINOUS MONITORING PER ED. FALL/SAFTEY PRECAUTION IN PLACE. CALL LIGHT WITHIN REACH
[2022-11-15] MEDS ORDERED: PREDNISONE10 MG PO (10:00)
[2022-11-15] MEDS ORDERED: VIBRAMYCIN100 M2 PO (10:00)
[2022-11-15 10:34] VITALS: BP 150/68
--- NOTE | 2022-11-15 12:00 | NUR ---
PT RESTING IN RECLINER. ALERT TO SELF/PERSON. BREATHING EVEN AND UNLABORED. NO DISTRESS NOTED. FALL/SAFTEY PRECAUTION IN PLACE, CALL LIGHT WITHIN REACH.
--- NOTE | 2022-11-15 15:00 | NUR ---
PT REMOVED IV. EDUCATED PT ON RISKS OF NOT HAVING IV. PT STATED " IM GOING HOME." DENIES IV ESTABLISHMENT AT THIS TIME. FALL/SAFTEY PRECAUTIO IN PLACE. CALL LIGHT WITHIN REACH
[2022-11-15 15:27] VITALS: BP 147/59
--- NOTE | 2022-11-15 16:00 | NUR ---
PT RESTING IN RECLINER. BREATHING EVEN AND UNLABORED. NO DISTRESS NOTED. FALL/SAFTEY PRECAUTION IN PLACE. CALL LIGHT WITHIN REACH
--- NOTE | 2022-11-15 17:58 | NUR ---
Discharge instructions given. Patient verbalizes understanding of same. Discharged in stable condition via Wheelchair to [facility] with staff. All belongings sent with pt.
== END 2022-11-15 17:58 | DRG 190 ==
LOC: ED 05:40 → ED-I 08:33 → ED 09:52 → MS2 09:53
PROVIDERS: Family Medicine; Internal Medicine; ADMIT Internal Medicine; ATTEND Internal Medicine
DX: J44.1 Chronic obstructive pulmonary disease with (acute) exacerbation (principal); J96.21 Acute and chronic respiratory failure with hypoxia; J96.22 Acute and chronic respiratory failure with hypercapnia; E87.29 Other acidosis; R91.1 Solitary pulmonary nodule; I12.9 Hypertensive chronic kidney disease with stage 1 through stage 4 chronic kidney disease, or unspecified chronic kidney disease; N18.9 Chronic kidney disease, unspecified; I48.91 Unspecified atrial fibrillation; E05.90 Thyrotoxicosis, unspecified without thyrotoxic crisis or storm; E78.5 Hyperlipidemia, unspecified; K21.9 Gastro-esophageal reflux disease without esophagitis; F32.A Depression, unspecified; F03.90 Unspecified dementia, unspecified severity, without behavioral disturbance, psychotic disturbance, mood disturbance, and anxiety; Z99.81 Dependence on supplemental oxygen
CPT/HCPCS: Q9967

== ENCOUNTER 2022-12-05 07:56 | Inpatient (IN) | payer MEDICARE, OTHER ==
[2022-12-05] VITALS (60 sets, daily range): BP systolic 86–198; BP diastolic 63–145
[~2022-12-05] VITALS: Ht 152.4 cm; Wt 59.0 kg
[~2022-12-05 07:56] MED LIST changes: +CLONIDINE0.1 MG PO; +FERROUS SULF325 M3 PO; +METHIMAZOLE5 MG PO; +OMEPRAZOLE DR40 MG PO; +PAROXETINE10 M1 PO; -REFRESH TEARS0.5 %; +REFRESH TEARS0.5 % OU; +VIBRAMYCIN100 M2 PO
[2022-12-05 08:51] LABS: BASO% 0.1 % (0-3); EOS% 0.1 % (0-8); HEMATOCRIT 37.6 % (37.0-47.0); HEMOGLOBIN 11.4 g/dl (12.0-16.0); IMMATURE GRANULOCYTES 0.3 % (0.0-5.0); LYMPH% 2.4 % (15-41); MEAN CELL VOLUME 98.4 fL CALC (80.0-100.0); MEAN CORPUSCULAR HGB 29.8 pG CALC (26.0-32.0); MEAN CORPUSCULAR HGB CONC 30.3 g/dL CAL (32.0-36.0); NEUT# 10.94 thou/uL (2.00-7.15); NEUT% 91.1 % (42-76); RED BLOOD COUNT 3.82 mill/uL (4.20-5.60); RED CELL DISTRI WIDTH 14.4 % (11.5-15.5)
[2022-12-05 09:03] LABS: ALKALINE PHOSPHATASE 96 u/l (38-126); ANION GAP 10 (6-22 (CALC)); BILIRUBIN, TOTAL 1.2 mg/dL (0.0-1.4); BUN 34 mg/dL (8-23); BUN/CREATININE RATIO 34 (12-20 (CALC)); CARBON DIOXIDE 32 mmol/l (22-30); CHLORIDE 104 mmol/l (95-108); GFR FOR AFR.AMER. > 60 ML/MIN (>=60 (CALC)); GFR OTHER RACES 53 ML/MIN (>=60 (CALC)); SGOT/AST 75 u/l (9-36); SODIUM 142 mmol/l (137-146); TOTAL PROTEIN 7.2 g/dL (6.3-8.2)
[2022-12-05] MEDS ORDERED: DEPAKOTE SPR125 MG PO (10:23)
[2022-12-05] MEDS ORDERED: DULCOLAX10 MG RE (10:24)
[2022-12-05] MEDS ORDERED: DOCQLACE100 MG PO (10:24)
[2022-12-05] MEDS ORDERED: METHIMAZOLE5 MG PO (10:25)
[2022-12-05] MEDS ORDERED: MILK OF MAG30 ML/UDC PO (10:26)
[2022-12-05] MEDS ORDERED: PAXIL30 MG PO (10:26)
[2022-12-05] MEDS ORDERED: POLY GLYCOL3350 MG PO (10:28)
[2022-12-05 15:19] LABS: URINE BILIRUBIN - DIPSTICK NEGATIVE (NEGATIVE); URINE BLOOD DIPSTICK MODERATE (NEGATIVE); URINE COLOR YELLOW; URINE GLUCOSE - DIPSTICK NEGATIVE (NEGATIVE); URINE KETONE NEGATIVE (NEGATIVE); URINE LEUK ESTERASE NEGATIVE (NEGATIVE); URINE PROTEIN - DIPSTICK 30 mg/dL (NEG-TRACE); URINE UROBILINOGEN - DIPSTICK 0.2 E.U./dL (0.2)
[2022-12-05 15:32] LABS: URINE NITRITE - DIPSTICK NEGATIVE (Negative)
[2022-12-06] VITALS (78 sets, daily range): BP systolic 40–211; BP diastolic 25–159
[2022-12-06 06:32] LABS: BASO% 0.1 % (0-3); HEMATOCRIT 34.5 % (37.0-47.0); IMMATURE GRANULOCYTES 0.2 % (0.0-5.0); LYMPH% 3.2 % (15-41); MEAN CELL VOLUME 95.8 fL CALC (80.0-100.0); MEAN CORPUSCULAR HGB 30.6 pG CALC (26.0-32.0); MEAN CORPUSCULAR HGB CONC 31.9 g/dL CAL (32.0-36.0); MONO% 3.2 % (2-13); NEUT# 10.06 thou/uL (2.00-7.15); NEUT% 93.3 % (42-76); RED BLOOD COUNT 3.6 mill/uL (4.20-5.60); RED CELL DISTRI WIDTH 14.6 % (11.5-15.5)
[2022-12-06 06:42] LABS: ALBUMIN 3.4 g/dL (3.2-5.0); CREATININE 1.3 mg/dL (0.5-1.0); POTASSIUM 4.3 mmol/l (3.5-5.1); TOTAL PROTEIN 5.9 g/dL (6.3-8.2)
[2022-12-06 07:00] LABS: BILIRUBIN, TOTAL 0.7 mg/dL (0.0-1.4)
[2022-12-07] VITALS (54 sets, daily range): BP systolic 111–227; BP diastolic 51–198
[2022-12-07 06:11] LABS: HEMATOCRIT 36.3 % (37.0-47.0); MEAN CELL VOLUME 95.5 fL CALC (80.0-100.0); MEAN CORPUSCULAR HGB 28.9 pG CALC (26.0-32.0); MEAN CORPUSCULAR HGB CONC 30.3 g/dL CAL (32.0-36.0); RED BLOOD COUNT 3.8 mill/uL (4.20-5.60); RED CELL DISTRI WIDTH 14.9 % (11.5-15.5)
[2022-12-07 07:24] LABS: ALBUMIN 3.5 g/dL (3.2-5.0); BILIRUBIN, TOTAL 0.6 mg/dL (0.0-1.4); CREATININE 1.2 mg/dL (0.5-1.0); MAGNESIUM 2.2 mg/dL (1.6-2.3); POTASSIUM 3.6 mmol/l (3.5-5.1); TOTAL PROTEIN 6.4 g/dL (6.3-8.2)
[2022-12-07] MEDS ORDERED: MAPAP325 MG PO (13:56)
[2022-12-08] VITALS (37 sets, daily range): BP systolic 109–194; BP diastolic 53–135
[2022-12-08 03:29] LABS: BASO% 0.1 % (0-3); HEMATOCRIT 35.1 % (37.0-47.0); HEMOGLOBIN 10.9 g/dl (12.0-16.0); IMMATURE GRANULOCYTES 1.3 % (0.0-5.0); LYMPH% 3.8 % (15-41); MEAN CELL VOLUME 97.2 fL CALC (80.0-100.0); MEAN CORPUSCULAR HGB 30.2 pG CALC (26.0-32.0); MEAN CORPUSCULAR HGB CONC 31.1 g/dL CAL (32.0-36.0); MONO% 3.8 % (2-13); NEUT# 7.45 thou/uL (2.00-7.15); RED BLOOD COUNT 3.61 mill/uL (4.20-5.60); RED CELL DISTRI WIDTH 15.5 % (11.5-15.5)
[2022-12-08 11:56] LABS: ALBUMIN 3.5 g/dL (3.2-5.0); ALKALINE PHOSPHATASE 77 u/l (38-126); ANION GAP 9 (6-22 (CALC)); BILIRUBIN, TOTAL 0.7 mg/dL (0.0-1.4); BUN 52 mg/dL (8-23); BUN/CREATININE RATIO 52 (12-20 (CALC)); CARBON DIOXIDE 28 mmol/l (22-30); CHLORIDE 112 mmol/l (95-108); GFR FOR AFR.AMER. > 60 ML/MIN (>=60 (CALC)); GFR OTHER RACES 53 ML/MIN (>=60 (CALC)); MAGNESIUM 2.4 mg/dL (1.6-2.3); POTASSIUM 3.7 mmol/l (3.5-5.1); SGOT/AST 50 u/l (9-36); SODIUM 145 mmol/l (137-146); TOTAL PROTEIN 6.1 g/dL (6.3-8.2)
[2022-12-09] VITALS (76 sets, daily range): BP systolic 76–163; BP diastolic 55–132
[2022-12-09 05:47] LABS: HEMATOCRIT 35.4 % (37.0-47.0); HEMOGLOBIN 11.1 g/dl (12.0-16.0); IMMATURE GRANULOCYTES 0.8 % (0.0-5.0); LYMPH% 3.8 % (15-41); MEAN CELL VOLUME 96.7 fL CALC (80.0-100.0); MEAN CORPUSCULAR HGB 30.3 pG CALC (26.0-32.0); MEAN CORPUSCULAR HGB CONC 31.4 g/dL CAL (32.0-36.0); NEUT# 5.98 thou/uL (2.00-7.15); NEUT% 93.4 % (42-76); RED BLOOD COUNT 3.66 mill/uL (4.20-5.60); RED CELL DISTRI WIDTH 15.6 % (11.5-15.5)
[2022-12-09 06:01] LABS: ALBUMIN 3.8 g/dL (3.2-5.0); BILIRUBIN, TOTAL 0.9 mg/dL (0.0-1.4); CREATININE 1.1 mg/dL (0.5-1.0); TOTAL PROTEIN 6.4 g/dL (6.3-8.2)
[2022-12-09 06:03] LABS: POTASSIUM 3.6 mmol/l (3.5-5.1)
[2022-12-10] VITALS (40 sets, daily range): BP systolic 119–170; BP diastolic 56–97
[2022-12-10 05:25] LABS: BASO% 0.2 % (0-3); HEMATOCRIT 35.7 % (37.0-47.0); HEMOGLOBIN 11.3 g/dl (12.0-16.0); IMMATURE GRANULOCYTES 0.4 % (0.0-5.0); LYMPH% 3.8 % (15-41); MEAN CORPUSCULAR HGB 30.4 pG CALC (26.0-32.0); MEAN CORPUSCULAR HGB CONC 31.7 g/dL CAL (32.0-36.0); MONO% 3.8 % (2-13); NEUT# 5.1 thou/uL (2.00-7.15); NEUT% 91.8 % (42-76); RED BLOOD COUNT 3.72 mill/uL (4.20-5.60)
[2022-12-10 05:39] LABS: ANION GAP 11 (6-22 (CALC)); BUN 50 mg/dL (8-23); BUN/CREATININE RATIO 50 (12-20 (CALC)); CARBON DIOXIDE 31 mmol/l (22-30); CHLORIDE 111 mmol/l (95-108); GFR FOR AFR.AMER. > 60 ML/MIN (>=60 (CALC)); GFR OTHER RACES 53 ML/MIN (>=60 (CALC)); MAGNESIUM 2.1 mg/dL (1.6-2.3); POTASSIUM 3.5 mmol/l (3.5-5.1); SODIUM 150 mmol/l (137-146)
[2022-12-11] VITALS (22 sets, daily range): BP systolic 139–190; BP diastolic 71–103
[2022-12-11 04:56] LABS: BASO% 0.1 % (0-3); HEMOGLOBIN 13.1 g/dl (12.0-16.0); LYMPH% 3.4 % (15-41); MEAN CELL VOLUME 96.3 fL CALC (80.0-100.0); MEAN CORPUSCULAR HGB 30.3 pG CALC (26.0-32.0); MEAN CORPUSCULAR HGB CONC 31.4 g/dL CAL (32.0-36.0); MONO% 5.7 % (2-13); NEUT# 7.75 thou/uL (2.00-7.15); NEUT% 89.8 % (42-76); RED BLOOD COUNT 4.33 mill/uL (4.20-5.60); RED CELL DISTRI WIDTH 14.3 % (11.5-15.5)
[2022-12-11 05:01] LABS: HEMATOCRIT 41.7 % (37.0-47.0)
[2022-12-11 05:19] LABS: ALBUMIN 3.8 g/dL (3.2-5.0); BILIRUBIN, TOTAL 0.9 mg/dL (0.0-1.4); CREATININE 1.1 mg/dL (0.5-1.0); TOTAL PROTEIN 6.4 g/dL (6.3-8.2)
[2022-12-12] VITALS (10 sets, daily range): BP systolic 125–195; BP diastolic 65–96
[2022-12-12 05:56] LABS: BUN 53 mg/dL (8-23); BUN/CREATININE RATIO 52 (12-20 (CALC)); CHLORIDE 106 mmol/l (95-108); GFR FOR AFR.AMER. > 60 ML/MIN (>=60 (CALC)); GFR OTHER RACES 53 ML/MIN (>=60 (CALC)); POTASSIUM 3.5 mmol/l (3.5-5.1); SODIUM 152 mmol/l (137-146)
[2022-12-12 06:02] LABS: ANION GAP 6 (6-22 (CALC))
[2022-12-12 06:09] LABS: CARBON DIOXIDE 44 mmol/l (22-30)
[2022-12-13 00:54] VITALS: BP 162/81
[2022-12-13 03:50] VITALS: BP 156/79
[2022-12-13 06:48] VITALS: BP 202/92
[2022-12-13 08:01] LABS: HEMATOCRIT 41.6 % (37.0-47.0); HEMOGLOBIN 13.2 g/dl (12.0-16.0); MEAN CELL VOLUME 95.4 fL CALC (80.0-100.0); MEAN CORPUSCULAR HGB 30.3 pG CALC (26.0-32.0); MEAN CORPUSCULAR HGB CONC 31.7 g/dL CAL (32.0-36.0); RED BLOOD COUNT 4.36 mill/uL (4.20-5.60); RED CELL DISTRI WIDTH 13.8 % (11.5-15.5)
[2022-12-13 08:16] LABS: ALBUMIN 3.5 g/dL (3.2-5.0); ALKALINE PHOSPHATASE 69 u/l (38-126); BILIRUBIN, TOTAL 0.8 mg/dL (0.0-1.4); BUN 51 mg/dL (8-23); BUN/CREATININE RATIO 66 (12-20 (CALC)); CHLORIDE 103 mmol/l (95-108); CREATININE 0.8 mg/dL (0.5-1.0); GFR FOR AFR.AMER. > 60 ML/MIN (>=60 (CALC)); GFR OTHER RACES > 60 ML/MIN (>=60 (CALC)); POTASSIUM 3.4 mmol/l (3.5-5.1); SGOT/AST 36 u/l (9-36); SODIUM 150 mmol/l (137-146)
[2022-12-13 08:25] LABS: ANION GAP 4 (6-22 (CALC))
[2022-12-13 08:31] LABS: CARBON DIOXIDE 46 mmol/l (22-30)
[2022-12-13] MEDS ORDERED: MEDDOSEPAK PO (08:43)
[2022-12-13 10:40] VITALS: BP 140/76
[2022-12-13 10:41] VITALS: BP 140/76
== END 2022-12-13 14:57 | DRG 280 ==
LOC: ED 07:56 → ED-I 09:21 → ED 09:21 → ED-I 09:22 → ED 09:48 → ICU 09:49 → MS2 12-11 13:40
PROVIDERS: Family Medicine; Internal Medicine; Nurse Practitioner Family; ADMIT Internal Medicine; ATTEND Internal Medicine
PROC: 5A09357 Assistance with Respiratory Ventilation, Less than 24 Consecutive Hours, Continuous Positive Airway Pressure (ICD-10-PCS; principal; 2022-12-05)
PROC: 0T9B70Z Drainage of Bladder with Drainage Device, Via Natural or Artificial Opening (ICD-10-PCS; 2022-12-05)
PROC: 5A09457 Assistance with Respiratory Ventilation, 24-96 Consecutive Hours, Continuous Positive Airway Pressure (ICD-10-PCS; 2022-12-05)
DX: I21.A1 Myocardial infarction type 2 (principal); G93.41 Metabolic encephalopathy; J18.9 Pneumonia, unspecified organism; J96.21 Acute and chronic respiratory failure with hypoxia; J96.22 Acute and chronic respiratory failure with hypercapnia; I50.33 Acute on chronic diastolic (congestive) heart failure; I13.0 Hypertensive heart and chronic kidney disease with heart failure and stage 1 through stage 4 chronic kidney disease, or unspecified chronic kidney disease; E87.20 Acidosis, unspecified; F03.918 Unspecified dementia, unspecified severity, with other behavioral disturbance; J44.1 Chronic obstructive pulmonary disease with (acute) exacerbation; J44.0 Chronic obstructive pulmonary disease with (acute) lower respiratory infection; N17.9 Acute kidney failure, unspecified; E87.0 Hyperosmolality and hypernatremia; E87.3 Alkalosis; N18.9 Chronic kidney disease, unspecified; I25.10 Atherosclerotic heart disease of native coronary artery without angina pectoris; I48.91 Unspecified atrial fibrillation; E78.5 Hyperlipidemia, unspecified; F32.A Depression, unspecified; T50.2X5A Adverse effect of carbonic-anhydrase inhibitors, benzothiadiazides and other diuretics, initial encounter; Z66 Do not resuscitate; Z86.73 Personal history of transient ischemic attack (TIA), and cerebral infarction without residual deficits; Z20.822 Contact with and (suspected) exposure to COVID-19
CPT/HCPCS: J1644; J2060; S0166

== ENCOUNTER 2022-12-27 23:35 | Emergency (ER) | payer MEDICARE, OTHER ==
[~2022-12-27] VITALS: Ht 152.4 cm; Wt 73.0 kg
[~2022-12-27 23:35] MED LIST changes: +DEPAKOTE SPR125 MG PO; +DOCQLACE100 MG PO; +MAPAP325 MG PO; +PAXIL30 MG PO; +POLY GLYCOL3350 MG PO
[2022-12-28 00:12] VITALS: BP 57/30
[2022-12-28 02:53] VITALS: BP 00/00
== END 2022-12-28 00:06 | disposition expired ==
LOC: ED 23:35
DX: I46.9 Cardiac arrest, cause unspecified (principal); I12.9 Hypertensive chronic kidney disease with stage 1 through stage 4 chronic kidney disease, or unspecified chronic kidney disease; N18.9 Chronic kidney disease, unspecified; J43.9 Emphysema, unspecified; I48.91 Unspecified atrial fibrillation; K21.9 Gastro-esophageal reflux disease without esophagitis; E78.5 Hyperlipidemia, unspecified; F03.90 Unspecified dementia, unspecified severity, without behavioral disturbance, psychotic disturbance, mood disturbance, and anxiety; F32.A Depression, unspecified; F41.9 Anxiety disorder, unspecified; J96.11 Chronic respiratory failure with hypoxia; Z66 Do not resuscitate